=== PATIENT | male | born 1935 | race Caucasian/White ===

== ENCOUNTER → 2017-10-03 13:00 | Outpatient (CLI) | payer MEDICARE, SELFPAY | PROVIDERS: PCP Family Medicine; Visit Provider Family Medicine | DX: I25.10 Atherosclerotic heart disease of native coronary artery without angina pectoris (principal) | CPT/HCPCS: 93005 ==

== ENCOUNTER → 2020-02-15 08:52 | Outpatient (CLI) | payer MEDICARE, SELFPAY ==
--- NOTE | 2020-02-15 08:56 | FL_ITS ---
PROCEDURE: FL BARIUM SWALLOW CLINICAL INDICATION: Dysphagia COMPARISON: No exams were available for comparison TECHNIQUE: In the upright position the patient was observed to swallow barium in both the AP and lateral view. The cervical esophagus was examined under fluoroscopy with images obtained. The patient was then placed prone in the right anterior oblique position and was observed to swallow barium with Valsalva technique . FLUOROSCOPY TIME: 1 minutes and 1 second FINDINGS: There was a small amount silent aspiration. There are diffuse tertiary contractions of the distal esophagus consistent with a corkscrew esophagus. There is a small mid esophageal diverticulum. No hernia and no annular constricting lesions. IMPRESSION: 1. Presbyesophagus. 2. Silent tracheal aspiration. Consider modified barium swallow with speech pathology for further evaluation. 3. Mid esophageal diverticulum Dictated by: Julián Reid MD 02/16/2020 07:52 Julián Reid MD in [place] 02/16/2020 07:52
== END ==
PROVIDERS: PCP Family Medicine; Visit Provider Family Medicine
DX: R13.14 Dysphagia, pharyngoesophageal phase (principal)
CPT/HCPCS: 74220

== ENCOUNTER → 2020-09-08 14:07 | Outpatient (CLI) | payer MEDICARE, SELFPAY ==
--- NOTE | 2020-09-08 14:13 | XR_ITS ---
PROCEDURE: XR KUB CLINICAL INDICATION: WEIGHT LOSS COMPARISON: No exams were available for comparison FINDINGS: Bowel gas pattern is nonspecific. There are nondistended gas-filled loops of small and large bowel. There is suggestion of some bowel loops thickening in the pelvic region. There are osteoarthritic changes of the hips and there is a gamma nail in the right hip. There are small opacities to the right of the L3 transverse process which could represent small renal or gallstones. IMPRESSION: Nondistended gas-filled loops of small and large bowel possibly related to an ileus with some questionable thickened bowel loops in the pelvic region Suspect either cholelithiasis or right nephrolithiasis Dictated by: Julián Reid MD 09/08/2020 15:33 Julián Reid MD in [facility] 09/08/2020 15:33
== END ==
PROVIDERS: PCP Family Medicine; Visit Provider Family Medicine
DX: R63.4 Abnormal weight loss (principal)
CPT/HCPCS: 74018

== ENCOUNTER → 2020-09-13 11:36 | Outpatient (CLI) | payer MEDICARE, SELFPAY | PROVIDERS: PCP Family Medicine; Visit Provider Family Medicine | DX: Z20.822 Contact with and (suspected) exposure to COVID-19 (principal) | CPT/HCPCS: U0003 ==

== ENCOUNTER 2021-02-28 18:17 | Inpatient (IN) | payer MEDICARE, SELFPAY ==
[2021-02-28] VITALS (10 sets, daily range): BP systolic 100–114; BP diastolic 57–62; PULSE 42–61; RESP 12–16; TEMP 36.8; O2SAT 94–97; BMI 16.1
--- NOTE | 2021-02-28 18:41 | ECG_ITS ---
APPROVED REPORT Exam: Resting ECG HR:57 bpm ECG Measurements Heart Rate 57 AXES FL 233 P 42 QRSd 154 QRS -62 QT 465 T 86 QTc 459 Conclusion SINUS BRADYCARDIA WITH FIRST DEGREE AV BLOCK WITH FREQUENT VENTRICULAR PREMATURE COMPLEXES RIGHT BUNDLE BRANCH BLOCK [120+ ms QRS DURATION, UPRIGHT V1, 40+ ms S IN I/aVL/V4/V5/V6] LEFT ANTERIOR FASCICULAR BLOCK [QRS AXIS <= -45, QR IN I, RS IN II] ABNORMAL ECG UNCONFIRMED REPORT Electronically signed by : Booker Santiago MD 03/02/2021 18:35:48
--- NOTE | 2021-02-28 18:52 | CT_ITS ---
PROCEDURE INFORMATION: Exam: CT Head Without Contrast Exam date and time: 02/28/2021 6:52 PM Age: 86 years old Clinical indication: Syncope and collapse TECHNIQUE: Imaging protocol: Computed tomography of the head without contrast. Radiation optimization: All CT scans at this facility use at least one of these dose optimization techniques: automated exposure control; mA and/or kV adjustment per patient size (includes targeted exams where dose is matched to clinical indication); or iterative reconstruction. COMPARISON: RF FL BARIUM SWALLOW 02/15/2020 9:20 AM FINDINGS: Brain: No acute intracranial findings. No intracranial hemorrhage. No edema, swelling or mass-effect. Prominent generalized cerebral cortical atrophy/volume loss. Patchy white matter disease in both cerebral hemispheres, nonspecific but likely chronic microvascular ischemic changes in an 86-year-old, with multiple small white matter infarcts in deep white matter tracts. Benign falcine calcifications. Cerebral ventricles: The ventricles are moderately enlarged, most likely due to central atrophy. Less likely would be NPH. Paranasal sinuses: Mucosal thickening in the left sphenoid sinus with bubbly air-fluid level, suggesting nisvb-ez-kppjkda sinusitis. Mild bilateral ethmoid sinus mucosal thickening. Mastoid air cells: The mastoid processes appear sclerotic and poorly pneumatized on a chronic basis. Orbital cavity: No acute findings in the orbits, as visualized. Vasculature: There are atherosclerotic calcified plaques in the intracranial carotid and vertebral arteries. Bones/joints: No acute skull fracture. No lytic lesions. Left nasal bone fracture deformity series 3, image 27, which may be chronic rather than acute, correlate clinically. Soft tissues: There are no soft tissue masses or fluid collections. IMPRESSION: 1. Lospr-nr-heqgctw left sphenoid sinusitis. 2. No acute intracranial injury or skull fracture. 3. There is no CT evidence of intracranial mass, intracranial hemorrhage, or acute infarct. 4. Mild left nasal bone fracture deformity of indeterminate age, correlate for old versus recent injury. 5. Prominent senescent changes as above, with cerebral atrophy, microvascular ischemic changes, atherosclerotic disease.
--- NOTE | 2021-02-28 18:52 | XR_ITS ---
PROCEDURE INFORMATION: Exam: XR Chest Exam date and time: 02/28/2021 6:52 PM Age: 86 years old Clinical indication: Shortness of breath and other: Syncope; Additional info: Syncope, shortness of breath TECHNIQUE: Imaging protocol: XR of the chest. Views: 1 view. COMPARISON: CR XR KUB 09/08/2020 2:27 PM FINDINGS: Lungs: Pulmonary hyperinflation, emphysematous changes and interstitial scarring in the lungs, correlate for history of COPD. Likely mild granulomatous changes on the left. No focal consolidation. Pleural spaces: Unremarkable. No significant pleural effusion. No pneumothorax. Heart/Mediastinum: Cardiomegaly. Mediastinal surgical changes, correlate for history of CABG. Vasculature: Calcified plaques in the aortic arch. Bones/joints: Sternotomy wires. Osteopenia. Spinal degenerative changes . Other findings: Overlying cardioversion paddles. IMPRESSION: 1. Findings suggest history of COPD, with pulmonary hyperinflation, interstitial scarring, emphysematous changes, and some likely granulomatous changes. 2. No focal consolidation. 3. Cardiomegaly. 4. Additional nonemergency and chronic findings as above.
--- NOTE | 2021-02-28 18:54 | HMH.EDGENADL ---
ED Disposition Clinical Impression: Syncope Disposition: Admitted As Inpatient Condition on Discharge: Fair - Critical Care Critical Care Time: No Attestation: On 02/28/21, the high probability of a clinically significant, sudden or life threatening deterioration of the following system(s) required my full and direct attention, intervention and personal management. The time I documented below is in addition to time spent performing reported procedures but includes the following listed in this critical care notation. Medical Decision Making - [place] Inquiry Pt receiving controlled substance: No Vital Signs: 02/28/21 18:20 02/28/21 19:00 02/28/21 20:30 Temperature 98.3 F Temperature Source Oral Pulse Rate 61 47 L Pulse Rate [Right] 57 L Respiratory Rate 16 14 14 Blood Pressure 101/58 L 100/59 L Blood Pressure [Right Arm] 101/58 L Blood Pressure Mean 70 Blood Pressure Mean [Right Arm] 72 Blood Pressure Source [Right Arm] Automatic Cuff Blood Pressure Position [Right Arm] Sitting 02 Sat by Pulse Oximetry 96 96 97 Oxygen Delivery Method Room Air Room Air Room Air 02/28/21 21:00 Temperature Temperature Source Pulse Rate 52 L Pulse Rate [Right] Respiratory Rate Blood Pressure 114/59 L Blood Pressure [Right Arm] Blood Pressure Mean 73 Blood Pressure Mean [Right Arm] Blood Pressure Source [Right Arm] Blood Pressure Position [Right Arm] 02 Sat by Pulse Oximetry 95 Oxygen Delivery Method Room Air - Lab Data Lab Results 02/28/21 16:48: WBC 9.9, RBC 4.18 L, Hgb 13.0 L, Hct 40.7 L, MCV 97.4 H, MCH 31.2, MCHC 32.0, RDW 14.6, Plt Count 278, MPV 9.2, Neut % (Auto) 83.3 H, Lymph % (Auto) 14.4, [place] % (Auto) 1.6 L, Eos % (Auto) 0.1, Baso % (Auto) 0.6, Neut # (Auto) 8.2 H, Lymph # (Auto) 1.4, [place] # (Auto) 0.2, Eos # (Auto) 0.0, Baso # (Auto) 0.1 02/28/21 16:48: Sodium 137, Potassium 3.7, Chloride 95 L, Carbon Dioxide 36 H, Anion Gap 9.7, BUN 37 H, Creatinine 1.90 H, Estimated GFR 34 L, Est GFR ( Amer) 41 L, Glucose 138 H, Calcium 8.9, Phosphorus 4.1, Magnesium 1.6, Total Bilirubin 0.7, AST 43, ALT 20, Alkaline Phosphatase 114, Troponin I 0.03, Total Protein 6.8, Albumin 2.9 L, Globulin 3.9 H, Albumin/Globulin Ratio 0.7 L, TSH 5.69 H, Thyroxine (T4) 8.4 02/28/21 16:48: NT-Pro-B Natriuret Pep 38871 H 02/28/21 19:00: SARS-CoV-2 (PCR) Not detected, Influenza A Untype (PCR) Not detected, Influenza Type B (PCR) Not detected 02/28/21 21:05: Troponin I 0.02 Result diagrams: 02/28/21 16:48 02/28/21 16:48 Orders (Tests/Meds): ED MEDICATIONS Generic Name Dose Route Start Last Admin Trade Name Freq PRN Reason Stop Dose Admin Acetaminophen 650 mg 02/28/21 21:53 Acetaminophen 325mg Tab PO 03/30/21 21:52 Q4HP PRN Fever or Mild Pain Docusate Sodium 100 mg 03/01/21 09:00 Docusate Sodium 100 Mg Capsule PO 03/31/21 08:59 DAILY [facility] Dextrose/Sodium Chloride 1,000 mls @ 50 mls/hr 02/28/21 22:00 Dextrose 5%-0.45% Nacl Iv Soln IV 03/30/21 21:59 .Q20H [facility] Morphine Sulfate 2 mg 02/28/21 21:53 Morphine 2mg/Ml Syringe IV 03/30/21 21:52 Q2HP PRN Severe Pain Ondansetron HCl 4 mg 02/28/21 21:53 Ondansetron 4mg/2ml Vial IV 03/30/21 21:52 Q8HP PRN Nausea Sodium Chloride 10 ml 02/28/21 21:53 Sodium Chloride 0.9% 10ml Flush Syringe IV 03/30/21 21:52 NEEDED PRN Maintain IV Site ORDERS Category Date Time Status Calcium, Ionized Stat Lab 02/28/21 19:30 Received Troponin I Q3H Lab 02/28/21 23:45 Ordered Troponin I Q3H Lab 03/01/21 01:00 Ordered Troponin I Q3H Lab 01/23/22 02:45 Ordered Medical Decision Narrative: ddx includes but not limited to electrolyte abnormality, dehydration, cardiogenic syncope, neurogenic syncope in setting of brain mass or ich. hds, nad, hr 40-80 bpm, on room air. nonfocal neuro exam. ekg shows sinus rhythm w/ frequent pvc, lafb, rbbb, similar to prior ekg. defib pads place
[2021-02-28 19:09] LABS: Basophils # 0.1 K/mm3 (0-0.2); Basophils % 0.6 % (0.1-2.0); Eosinophils % 0.1 % (0.1-12.0); Hematocrit 40.7 % (42.0-52.0); Lymphocytes # 1.4 K/mm3 (0.7-4.5); Lymphocytes % 14.4 % (10-50); Mean Corpuscular Hemoglobin 31.2 pg (27.0-31.2); Mean Corpuscular Volume 97.4 fl (80-94); Mean Platelet Volume 9.2 fl (7.4-10.4); Monocytes # 0.2 K/mm3 (0.1-1.0); Monocytes % 1.6 % (1.7-9.3); Neutrophils # 8.2 K/mm3 (1.8-7.8); Neutrophils % 83.3 % (37.0-80.0); Platelet Count 278 K/mm3 (142-424); Red Blood Count 4.18 M/mm3 (4.60-6.20); Red Cell Distribution Width 14.6 % (11.5-17.5); White Blood Count 9.9 K/mm3 (4.8-10.8)
[2021-02-28 19:10] LABS: Chloride 95 mmol/L (98-107); Potassium 3.7 mmoL/L (3.5-5.1); Sodium 137 mmol/L (136-145)
--- NOTE | 2021-02-28 19:10 | PC.NURSE ---
PT to rad with YOU Marin
[2021-02-28 19:13] LABS: Alanine Aminotransferase 20 U/L (12-78); Albumin Level 2.9 g/dl (3.5-5.0); Albumin/Globulin Ratio 0.7 (1.1-1.8); Alkaline Phosphatase 114 U/L (38-126); Anion Gap 9.7 mEq/L (5-15); Aspartate Amino Transferase 43 U/L (17-59); Bilirubin,Total 0.7 mg/dl (0.2-1.3); Blood Urea Nitrogen 37 mg/dl (9-20); Carbon Dioxide 36 mmol/L (22.0-30.0); Estimated Glomerular Filt Rate 34 ml/min (>60); GFR (African American) 41 ML/MIN (>60); Globulin 3.9 g/dL (1.3-3.2); Phosphorous 4.1 mg/dl (2.5-4.5); Total Protein,Serum 6.8 g/dl (6.3-8.2)
[2021-02-28 19:14] LABS: Calcium 8.9 mg/dl (8.4-10.2); Glucose 138 mg/dl (74-100); Magnesium 1.6 mg/dl (1.6-2.3)
[2021-02-28 19:23] LABS: NT Pro Brain Natriuretic Pep. 11900 pg/mL (0-450)
[2021-02-28 19:27] LABS: Troponin I 0.03 ng/ml (0.00-0.034)
[2021-02-28 19:31] LABS: T4 (Thyroxine) 8.4 ug/dl (5.53-11.0)
--- NOTE | 2021-02-28 19:35 | PC.NURSE ---
PT came in with and she told the story of the events of that occurred today. Pt rhythm is nickie, EKG obtained immediately, MD notified and came to bedside. Son comes to bedside and reports events also. Zoll monitor pads placed on patient.
[2021-02-28 19:45] LABS: Thyroid Stimulating Hormone 5.69 uIU/mL (0.465-4.68)
[2021-02-28 20:39] LABS: Coronavirus 19, PCR Not Detected (NotDetected); Influenza A, PCR Not Detected (NotDetected); Influenza B, PCR Not Detected (NotDetected)
--- NOTE | 2021-02-28 20:55 | PC.NURSE ---
Dr. Finley s/w to Dr. Santiago for admit. supervisor title notified for bed assignment.
[2021-02-28 21:44] LABS: Troponin I 0.02 ng/ml (0.00-0.034)
[2021-03-01] VITALS (10 sets, daily range): BP systolic 104–116; BP diastolic 51–80; PULSE 50–64; RESP 11–16; TEMP 36.3–36.8; O2SAT 92–97; BMI 15.3
[2021-03-01 00:33] LABS: Troponin I 0.03 ng/ml (0.00-0.034)
--- NOTE | 2021-03-01 13:26 | PC.NURSE ---
PT IS RESTING IN BED. ALERT AND ORIENTED X4. NO COMPLAINTS OF DISCOMFORT. PT HAS VOICED SEVERAL TIMES THAT HE WANTS TO GO HOME. TOLERATING CARDIAC DIET WELL. LUNG SOUNDS CLEAR. ABDOMEN SOFT/NON TENDER WITH ACTIVE BOWEL SOUNDS. WILL CONTINUE TO MONITOR.
--- NOTE | 2021-03-01 14:05 | HMH.ACPN2 ---
Internal Medicine - PN: Subj *Date: 03/01/21 *Time: 14:05 Interval history: From the ER narrative: 86 yo male w/ hx CAD s/p CABG 12 years ago, HTN, HLD, hypothyroidism, GERD, presents for evaluation of syncope. Patient had syncopal episode lasting 20 seconds earlier tonight while sitting at home eating ice cream. family at bedside state patient lost consciousness suddenly for approximately 20 seconds without obvious shaking activity. Patient has not had similar episode before. Patient states he feels fine now but felt short of breath during his spell earlier. Family notes patient has had difficulty eating in last 6 months, with frequent vomiting, choking episodes, intermittent diarrhea. Dr. Sr spoke with family to review the history. Patient has significant hearing deficit. Family was present during this apparent syncopal episode. He rapidly gained consciousness, no loss odf bowel or bladder. Sounds c/w cardiac dysrrhythmia with syncope, and indeed, he monitors frequnt PVC's. The dysphagia has been present for some time and has resulted in weight loss. He has avoided evaluation. Exam Vital signs and Labs for Last 24 Hours: Temp Pulse Resp BP Pulse Ox 97.3 F L 64 16 104/51 L 94 L 03/01/21 07:56 03/01/21 07:56 03/01/21 07:56 03/01/21 07:56 03/01/21 07:56 Laboratory Results - last 24 hr 02/28/21 16:48: WBC 9.9, RBC 4.18 L, Hgb 13.0 L, Hct 40.7 L, MCV 97.4 H, MCH 31.2, MCHC 32.0, RDW 14.6, Plt Count 278, MPV 9.2, Neut % (Auto) 83.3 H, Lymph % (Auto) 14.4, [place] % (Auto) 1.6 L, Eos % (Auto) 0.1, Baso % (Auto) 0.6, Neut # (Auto) 8.2 H, Lymph # (Auto) 1.4, [place] # (Auto) 0.2, Eos # (Auto) 0.0, Baso # (Auto) 0.1 02/28/21 16:48: Sodium 137, Potassium 3.7, Chloride 95 L, Carbon Dioxide 36 H, Anion Gap 9.7, BUN 37 H, Creatinine 1.90 H, Estimated GFR 34 L, Est GFR ( Amer) 41 L, Glucose 138 H, Calcium 8.9, Phosphorus 4.1, Magnesium 1.6, Total Bilirubin 0.7, AST 43, ALT 20, Alkaline Phosphatase 114, Troponin I 0.03, Total Protein 6.8, Albumin 2.9 L, Globulin 3.9 H, Albumin/Globulin Ratio 0.7 L, TSH 5.69 H, Thyroxine (T4) 8.4 02/28/21 16:48: NT-Pro-B Natriuret Pep 42167 H 02/28/21 19:00: SARS-CoV-2 (PCR) Not detected, Influenza A Untype (PCR) Not detected, Influenza Type B (PCR) Not detected 02/28/21 21:05: Troponin I 0.02 02/28/21 23:56: Troponin I 0.03 I & O for Last 24 hours: Intake & Output 02/27/21 02/28/21 03/01/21 03/02/21 11:59 11:59 11:59 11:59 Intake Total 240 / 240 Balance 240 / 240 Weight 95 lb 9.6 oz
--- NOTE | 2021-03-01 14:11 | HMH.HP ---
*Admission Date: 03/01/21 *Chief complaint: Syncope *History of present illness: From the ER narrative: 86 yo male w/ hx CAD s/p CABG 12 years ago, HTN, HLD, hypothyroidism, GERD, presents for evaluation of syncope. Patient had syncopal episode lasting 20 seconds earlier tonight while sitting at home eating ice cream. family at bedside state patient lost consciousness suddenly for approximately 20 seconds without obvious shaking activity. Patient has not had similar episode before. Patient states he feels fine now but felt short of breath during his spell earlier. Family notes patient has had difficulty eating in last 6 months, with frequent vomiting, choking episodes, intermittent diarrhea. Dr. Sr spoke with family to review the history. Patient has significant hearing deficit. Family was present during this apparent syncopal episode. He rapidly gained consciousness, no loss odf bowel or bladder. Sounds c/w cardiac dysrrhythmia with syncope, and indeed, he monitors frequnt PVC's. The dysphagia has been present for some time and has resulted in weight loss. He has avoided evaluation. [facility] History I have reviewed the patient's past medical history: Yes (He is a patient of [employer].) Medical History: Reports:: Arrhythmia, Atherosclerotic Heart Disease, Gastroesophageal Reflux Disease(GERD) Denies:: Congestive Heart Failure, Cerebrovascular Accident, Dementia, Gastrointestinal Bleed, Myocardial Infarction, Peripheral Vascular Disease, Pulmonary Embolism, Transient Ischemic Attacks (TIA) *Have you ever received a pneumonia vaccine?: No *Have you received a flu vaccine this season?: No Other Medical History: Reports: Hypothyroidism. Denies: Hoarseness, Hormone Therapy Other Surgeries: Yes: CABG Amputation: No Fractures: No - *Social History Smoking Status: Unknown if ever smoked Alcohol Intake: never *Occupational Status:: retired *Travel in the last 8 weeks: None Family Hx:: Hypertension Review of Systems - Constitutional Reports anorexia, Reports lack of energy, Reports weight loss, Denies fever(s) - Eyes Denies blind spots, Denies blurry vision - ENT Reports abnormal hearing, Reports difficulty swallowing - *Cardiovascular Reports lightheadedness, Denies chest pain, Denies foot swelling, Denies fast heart rate - *Respiratory Reports shortness of breath, Denies chest congestion - *Gastrointestinal Reports heartburn, Reports difficulty swallowing, Denies abdominal pain, Denies loose stools, Denies black, tarry stools - *Genitourinary Denies difficulty urinating - *Musculoskeletal Reports muscle weakness - Integumentary/Breasts Denies bleeding lesions, Denies lesions - *Neurologic Reports abnormal hearing, Reports dizziness, Reports fainting (In addition to this presentation, describes another brief episode of s), Denies behavioral changes, Denies frequent falls - Psychiatric Denies anxiety, Denies behavioral changes - Endocrine Denies cold intolerance, Denies excessive sweating - Hematologic/Lymphatic Denies easy bleeding - Allergic/Immunologic Reports GI upset with certain foods, Denies wheezing Meds Home Medications Medication Instructions Recorded Confirmed Type Amlodipine Besylate 2.5 mg PO DAILY 02/28/21 02/28/21 History Atorvastatin Calcium [Lipitor 20mg 20 mg PO HS 02/28/21 02/28/21 History Tab] Levothyroxine Sodium 25 mcg PO DAILY 02/28/21 02/28/21 History [Levothyroxine 25mcg (0.025mg) Tab] Metoprolol Succinate [Metoprolol 25 mg PO DAILY 02/28/21 02/28/21 History Succinate 25mg Tablet*] Omeprazole [Omeprazole 20mg Tab] 20 mg PO DAILY 02/28/21 02/28/21 History hydroCHLOROthiazide 12.5 mg PO DAILY 02/28/21 02/28/21 History [Hydrochlorothiazide 12.5mg Tab] Allergies Allergy/AdvReac Type Severity Reaction Status Date / Time Penicillins Allergy Unknown Verified 03/01/21 01:57 Exam Vital signs and Labs for Last 24 Hours: Temp Pulse Resp BP Pulse Ox
--- NOTE | 2021-03-01 14:30 | HMH.PHAVTE ---
[facility] Pharmacy VTE Monitoring - Patient Demographics Admission date: 02/28/21 Report Date: 03/01/21 Time: 14:30 Allergies/Adverse Reactions: Patient Allergies Penicillins Allergy (Unknown, Verified 03/01/21 01:57) Height: 1.68 m Weight: 43.363 kg Patient Problems: Current Active Problems Syncope (Acute) Cardiac dysrhythmia (Acute) Dysphagia (Acute) Weight loss (Acute) Hypothyroidism (Acute) Hypertension (Acute) Hearing deficit (Acute) - VTE Risk Labs: VTE Related Lab Results Hgb 13.0 g/dL (14.1-18.0) L 02/28/21 16:48 Hct 40.7 % (42.0-52.0) L 02/28/21 16:48 Plt Count 278 K/mm3 (142-424) 02/28/21 16:48 BUN 37 mg/dl (9-20) H 02/28/21 16:48 Creatinine 1.90 mg/dl (0.66-1.25) H 02/28/21 16:48 - Prophylaxis VTE Prophylaxis Ordered?: Yes Types of VTE Prophylaxis: TEDS Knee High Location of Applied Device: Bilateral Lower Extremeties
--- NOTE | 2021-03-01 16:49 | HMH.PHAINT ---
MEDICATION RECONCILIATION COMPLETED ON PATIENT USING EXTERNAL FILL HISTORY FROM PHARMACY. -MARYA DONOVAN, KEOD
[2021-03-02] VITALS (20 sets, daily range): BP systolic 83–114; BP diastolic 40–79; PULSE 46–78; RESP 12–19; TEMP 36.1–36.6; O2SAT 94–100; BMI 15.7
--- NOTE | 2021-03-02 | IR_ITS ---
APPROVED REPORT Patient Location: Inpatient PROCEDURES 1. Pocket formation for Permanent Pacemaker Placement. 2. Placement of an atrial sensing and pacing coil into the right atrial appendage. 3. Placement of a ventricular sensing and pacing coil in the right ventricular apex. 4. Permanent Pacemaker Placement. INDICATION Symptomatic Bradycardia Informed consent was obtained prior to the procedure. COMPLICATIONS NONE Estimated Blood Loss: LESS THAN 10 ML TECHNIQUE 1% Lidocaine with epinephrine used to anesthetized the left anterior aspect of the chest. Scalpel was used to make the initial cutaneous incision while electrocautery was used to dissect down tinto the fascia. The fascia was lifted off the pectoralis muscle and digitally manipulated creating a pocket for the pacemaker. The patient was then placed in Trendelenburg position and the subclavian vein was accessed twice via the Selinger technique, there are two wires in the vein. A 6 Vietnamese sheath was placed under fluoroscopic guidance into the subclavian vein over one of the wires while keeping the other wire in place within the subclavian vein. The dilator was removed from the sheath. Using fluoroscopic guidance, the ventricular lead was placed into the right ventricular apex, screwed and secured into place. Electronic interrogation proved acceptable thresholds and voltage within the lead. Using 3-0 silk, the ventricular lead was then secured into place. Lead was secured to the facia using the 3-0 silk. Following this, the sheath was pealed away. An additional 6 Vietnamese fresh sheath and dilator was placed over the existing wire. Using fluoroscopic guidance, the atrial lead was the placed into the right atrial appendage and screwed and secured in place. Electrical interrogation demonstrated acceptable thresholds and voltage number. The atrial lead was then secured into place using 3-0 silk. 1 gram of Ancef was used to flush the pocket. Following the pacemaker generator being secured to the fascia and in place, Monocryl was used to close the subcutaneous layers while spencer were used to close the cutaneous layer. A pressure dressing was placed and the patient was transferred to the postop holding area in stable condition for postoperative care. INTERROGATION Generator Model number: Qwiltde MRI DR IS-1 L311 Generator Serial number: [id number] Atrial lead model number: Ingevity_IS-1 Bi Positive Fix RA/RV 45 cm 7840 Atrial lead serial number: [id number] P-wave: 4.0 mV Impedence: 558 Ohms Threshold: 1.0V @ 0.4ms Current: 1.8 mA Right Ventricular lead model number: Ingevity + IS-1Bi Positive Fix RA/RV 52 cm 7841 Right Ventricular lead serial number: [id number] R-wave: 9.0 mV Impedence: 650 Ohms Threshold: 1.0V @ 0.4ms Current: 1.6 mA Pacing Parameters: Mode: DDDR Base/Max Track: 60 ppm/ 130 ppm No diaphragmatic stimulation at 10 volts. IMPRESSION 1. Successful Pocket formation for Permanent Pacemaker Placement. 2. Successful Placement of an atrial sensing and pacing coil into the right atrial appendage. 3. Successful Placement of a ventricular sensing and pacing coil in the right ventricular apex. 4. Successful Permanent Pacemaker Placement. PLAN 1. Post Op Wound Care. Electronically signed by : Brady Fraser MD 03/05/2021 12:32:18
--- NOTE | 2021-03-02 08:00 | FL_ITS ---
FINAL REPORT CLINICAL HISTORY: . dysphagia, vomiting time-3.43 FINDINGS: UPPER GI SERIES HISTORY: Dysphagia, weight loss, vomiting. PROCEDURE: The patient ingested thin barium contrast. Spot films were performed. A total of 27 images were saved. FINDINGS: Examination was extremely limited due to aspiration of contrast. Only 2-3 swallows of contrast were given due to aspiration. There was a large presumed mid esophageal diverticulum, eccentric to the right. There were filling defects within the diverticulum. This may be related to retained ingested material. However, recommend endoscopy, as neoplasm in the diverticulum cannot be excluded. There was reflux of contrast from the region of the diverticulum back into the pharynx. This also limited ability to complete the study. Fluoroscopy time: 3.43 minutes. IMPRESSION: Extremely limited examination due to the patient aspirating contrast. 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 This may be related to retained ingested material. However, cannot exclude neoplasm in the diverticulum. Recommend upper endoscopy. Note was made of reflux of contrast from the region of the diverticulum into the pharynx. Reviewed, Interpreted and Dictated by Salvador Ferreira MD Transcribed by Meme Portillo PA-C Authenticated by Salvador Ferreira MD on 03/02/2021 12:18:11 PM [facility]
--- NOTE | 2021-03-02 08:11 | HMH.ACPN2 ---
Internal Medicine - PN: Subj *Date: 03/02/21 *Time: 08:11 Interval history: Patient states he is doing fine. Denies chest pain and shortness of breath. He would like to eat breakfast. Nursing notes heart rate has been in the 30s during the night. Sinus rhythm with bundle branch block and first-degree AV block. Exam Vital signs and Labs for Last 24 Hours: Temp Pulse Resp BP Pulse Ox 97.8 F 46 L 18 104/48 L 96 03/02/21 04:00 03/02/21 04:00 03/02/21 04:00 03/02/21 04:00 03/02/21 04:00 I & O for Last 24 hours: Intake & Output 02/27/21 02/28/21 03/01/21 03/02/21 11:59 11:59 11:59 11:59 Intake Total 1382 / 1382 Output Total 200 / 200 Balance 1182 / 1182 Weight 95 lb 9.6 oz - Constitutional no acute distress (Awakened for assessment) - *Routine Respiratory Exam Present: CTA bilaterally (Anteriorly and posteriorly) - *Routine Cardiovascular Exam Present: RRR (At time of exam heart rate is in the 60s and appears sinus rhythm) - *Routine Abdominal Exam Present: soft, normoactive bowel sounds. Absent: tenderness - *Routine Extremities Exam Absent: edema, calf tenderness Assessment and Plan (1) Cardiac dysrhythmia Status: Acute Category: Medical Code(s): I49.9 - Cardiac arrhythmia, unspecified (2) Dysphagia Status: Acute Category: Medical Code(s): R13.10 - Dysphagia, unspecified (3) Weight loss Status: Acute Category: Medical Code(s): R63.4 - Abnormal weight loss (4) Hypothyroidism Status: Acute Category: Medical Code(s): E03.9 - Hypothyroidism, unspecified (5) Hypertension Status: Acute Category: Medical Code(s): I10 - Essential (primary) hypertension (6) Hearing deficit Status: Acute Category: Medical Code(s): H91.90 - Unspecified hearing loss, unspecified ear - Assessment and plan all Dx Assessment and Plan for all problems:: Cardiology to see patient this a.m.
--- NOTE | 2021-03-02 09:14 | CA_ITS ---
APPROVED REPORT EXAM: Comprehensive 2D, Doppler, and color-flow Echocardiogram Big Data Developer: Mellisa Otto RVT Ht: 5 ft 6 in Wt: 95lbs BSA: 1.46 BP: 104/51 mmHg Indications: SYNCOPE,CAD,CABG,RBBB,HTN,EDEMA,ANEMIA HGB-13 HCT-40 2D Dimensions LVOT 2.25 cm (M/F) 1.5-2.5 LA Volume 29.20 mL LA Volume Index 20.13 mL/m2 (M/F) 16-34 M-Mode Dimensions RVDd 3.58 cm (0.9-2.6) LA Diam 3.50 cm (1.9-4.0) LVDd 4.92 cm (3.5-5.7) Ao Diam 3.21 cm (2.0-3.7) LVDs 3.44 cm (3.5-5.7) IVSd 1.12 cm (0.6-1.1) PWd 0.80 cm (0.6-1.1) EF (Teich) 57.20% FS 30.10% EDV (Teich) 113.90 mL TAPSE 1.41 (<1.7) ESV (Teich) 48.80 mL LV Diastology E Decel Time 290.00 (160-240 msec) E/A Ratio 0.8 MED E' 5.30 (< 7 cm/sec) E'/MED E' Ratio 14.34 (>14) LAT E' 9.10 (<10 cm/sec) E/LAT E' Ratio 8.35 (>14) Aortic Valve LVOT Max 102.00 (70-110 cm/s) LVOT VTI 23.25 cm AoV Peak Chevy. 162.00 (50-130 cm/s) AI PHT 591.00 ms AO Peak GR. 10.50 mmHg AO Mean GR. 5.50 (<5 mmHg) AO VTI 33.88 (18-25 cm) CASI (VTI) 2.73 (2.5-4.5 cm2) Mitral Valve MV E Max Chevy. 76.00 (40-130 cm/s) MV A Velocity 93.00 (40-130 cm/s) E/A Ratio 0.82 MV Decel. Time 290.00 (160-240 ms) MV PHT 85.00 ms Pulmonary Valve PV Peak Velocity 59.00 (50-150 cm/s) Tricuspid Valve TR P. Velocity 393.00 cm/s RAP Estimate 10.00 mmHg RVSP 71.80 mmHg Left Ventricle Technically difficult study because of the patient factors and poor acoustic windows. Left atrium is moderately enlarged, left ventricle is normal size, mild concentric left ventricular hypertrophy, visually estimated ejection fraction approximately 45 to 50%, there is moderate inferior basal wall hypokinesis. Endocardial surfaces are poorly visualized. Diastolic parameters are inconclusive in the study. Right Ventricle Right atrium and right ventricle moderately enlarged, contractility of the right ventricle appears to be preserved. Aortic Valve Aortic valve is thickened and calcified, without Doppler evidence of significant aortic stenosis, there is mild aortic insufficiency. Mitral Valve Mitral valve leaflets are minimally thickened, there is mild mitral regurgitation. Tricuspid Valve Tricuspid valve grossly normal, there is moderate tricuspid regurgitation, calculated right ventricular systolic pressure 72 mmHg. Pulmonic Valve Pulmonic valve is minimally thickened and fibrosed. Great Vessels Aortic root is normal size. Inferior vena cava is poorly visualized. Pericardium No significant pericardial effusion noted. Conclusion 1. Biatrial enlargement, normal left ventricular size, mild concentric left ventricular hypertrophy, visually estimated ejection fraction 45 to 50%, with segmental wall motion abnormality described above, study is technically difficult due to patient factors and poor acoustic windows. 2. Thickened and calcified aortic valve without Doppler evidence of aortic stenosis, there is mild aortic insufficiency. 3. Moderately enlarged right ventricle with normal contractility. 4. Mild aortic, mild mitral and moderate tricuspid regurgitation, calculated right ventricular systolic pressure is 72 mmHg. 5. No significant pericardial effusion noted. 6. Inferior vena cava is poorly visualized. Electronically signed by : Sergio Silva MD 03/02/2021 13:02:24
--- NOTE | 2021-03-02 10:14 | HMH.CNCARD ---
History of Present Illness Consult date: 03/02/21 Requesting physician: Jose Sr Chief complaint: syncope History of present illness: This is an 86-year-old white gentleman who presented to the emergency department with complaints of syncope. The patient had a syncopal episode while sitting at home eating ice cream. The patient's family reports that he lost consciousness for approximately 20 seconds. His brother states that he actually passed out twice that day and lost consciousness for approximately 20 seconds each episode. His family reported that he had noticeable shaking activity when he was passed out. He had never had these type of symptoms before. The patient's reported in the emergency department that he did have a little bit of shortness of breath when he woke up from his syncopal spell after eating ice cream but other than that he denies having any shortness of breath. He denies any chest pain or pressure. He denies any edema. He denies any fever, chills, nausea, vomiting, diarrhea, PND or orthopnea. His family does report that he has had difficulty eating for the last 6 months approximately. He does have frequent choking episodes while he is eating and a lot of saliva buildup per his brother. The patient is very hard of hearing. During his syncopal episode he had no loss of bowel or bladder function. The patient does have a history of coronary artery disease status post coronary artery bypass grafting approximately 12 years ago. He does have frequent PVCs on the athletic monitor and his EKG does show first-degree AV block, a right bundle branch block and a 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 [facility] History I have reviewed the patient's past medical history: Yes Medical History: Reports:: Arrhythmia, Atherosclerotic Heart Disease, Coronary Artery Disease, Gastroesophageal Reflux Disease(GERD), Hyperlipidemia, Hypertension Denies:: Congestive Heart Failure, Cerebrovascular Accident, Dementia, Gastrointestinal Bleed, Myocardial Infarction, Peripheral Vascular Disease, Pulmonary Embolism, Transient Ischemic Attacks (TIA) *Have you ever received a pneumonia vaccine?: No *Have you received a flu vaccine this season?: No Other Medical History: Reports: Hypothyroidism. Denies: Hoarseness, Hormone Therapy Other Surgeries: Yes: CABG Amputation: No Fractures: No - *Social History Smoking Status: Unknown if ever smoked Alcohol Intake: never *Occupational Status:: retired *Travel in the last 8 weeks: None Family Hx:: Hypertension Meds Home Medications Medication Instructions Recorded Confirmed Type Amlodipine Besylate 2.5 mg PO DAILY 02/28/21 02/28/21 History Atorvastatin Calcium [Lipitor 20mg 20 mg PO HS 02/28/21 02/28/21 History Tab] Levothyroxine Sodium 25 mcg PO DAILY 02/28/21 02/28/21 History [Levothyroxine 25mcg (0.025mg) Tab] Metoprolol Succinate [Metoprolol 25 mg PO DAILY 02/28/21 02/28/21 History Succinate 25mg Tablet*] Omeprazole [Omeprazole 20mg Tab] 20 mg PO DAILY 02/28/21 02/28/21 History hydroCHLOROthiazide 12.5 mg PO DAILY 02/28/21 02/28/21 History [Hydrochlorothiazide 12.5mg Tab] Allergies Allergy/AdvReac Type Severity Reaction Status Date / Time Penicillins Allergy Unknown Verified 03/01/21 01:57 Exam Vital signs and Labs for Last 24 Hours: Temp Pulse Resp BP Pulse Ox 97.8 F 46 L 18 104/48 L 96 03/02/21 04:00 03/02/21 04:00 03/02/21 04:00 03/02/21 04:00 03/02/21 04:00 I & O for Last 24 hours: Intake & Output 02/27/21 02/28/21 03/01/21 03/02/21 23:59 23:59 23:59 23:59 Intake Total 840 / 840 542 / 542 Output Total 200 / 200 Balance 640 / 640 542 / 542 Weight 100 lb 95 lb 9.6 oz Narrative: EKG is sinus bradycardia with a rate of 57, frequent PVCs, first-degree AV block, right bundle branch block and a 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 He also has a left anterior hemiblock. - Constitutional no acute distress, thin, chronically ill appea
--- NOTE | 2021-03-02 11:53 | ECG_ITS ---
APPROVED REPORT Exam: Resting ECG HR:65 bpm ECG Measurements Heart Rate 65 AXES QRSd 137 QRS -57 QT 461 T 102 QTc 473 Conclusion ATRIAL FIBRILLATION RIGHT BUNDLE BRANCH BLOCK [120+ ms QRS DURATION, UPRIGHT V1, 40+ ms S IN I/aVL/V4/V5/V6] LEFT ANTERIOR FASCICULAR BLOCK Old anteroseptal changes Electronically signed by : Booker Santiago MD 03/02/2021 18:32:47
[2021-03-02 13:18] LABS: Basophils % 0.4 % (0.1-2.0); Eosinophils % 0.6 % (0.1-12.0); Hematocrit 35.4 % (42.0-52.0); Hemoglobin 11.6 g/dL (14.1-18.0); Lymphocytes # 0.8 K/mm3 (0.7-4.5); Lymphocytes % 14.9 % (10-50); Mean Corpuscular HGB Conc 32.6 g/dL (31.8-35.4); Mean Corpuscular Hemoglobin 31.7 pg (27.0-31.2); Mean Corpuscular Volume 97.1 fl (80-94); Mean Platelet Volume 8.8 fl (7.4-10.4); Monocytes # 0.2 K/mm3 (0.1-1.0); Monocytes % 3.3 % (1.7-9.3); Neutrophils # 4.6 K/mm3 (1.8-7.8); Neutrophils % 80.8 % (37.0-80.0); Platelet Count 190 K/mm3 (142-424); Red Blood Count 3.65 M/mm3 (4.60-6.20); Red Cell Distribution Width 14.4 % (11.5-17.5); White Blood Count 5.6 K/mm3 (4.8-10.8)
[2021-03-02 13:19] LABS: Chloride 94 mmol/L (98-107)
[2021-03-02 13:20] LABS: Potassium 3.5 mmoL/L (3.5-5.1); Sodium 129 mmol/L (136-145)
[2021-03-02 13:23] LABS: Anion Gap 5.5 mEq/L (5-15); Blood Urea Nitrogen 29 mg/dl (9-20); Calcium 7.7 mg/dl (8.4-10.2); Carbon Dioxide 33 mmol/L (22.0-30.0); Creatinine Clearance Estimated 26 mL/min (50-200); Estimated Glomerular Filt Rate 52 ml/min (>60); GFR (African American) 63 ML/MIN (>60); Glucose 95 mg/dl (74-100)
--- NOTE | 2021-03-02 13:48 | HMH.ANESCL ---
[facility] Anesthesia Checklist - Patient Identification Patient Identification: Arm Band - Structural Data Admitted From: Inpatient Planned Operative Procedure/s: Pacemaker placement Consent for Planned Operative Procedure(s) Verified: Yes - NPO Status Verified Time NPO: 00:00 - Airway Assessment C-Spine Mobility Assessed: Yes TMJ Mobility Assessed: Yes Dentition: Edentulous - Neurological Assessment Level of Consciousness: Awake Hx Seizures: No Numbness or tingling in extremities: No - Anesthesia Plan Anesthesia Risk discussed: Yes Anesthesia Plan: Verified ASA Class: III Anesthesia Type: MAC [facility] History I have reviewed the patient's past medical history: Yes Medical History: Reports:: Arrhythmia, Atherosclerotic Heart Disease, Coronary Artery Disease, Gastroesophageal Reflux Disease(GERD), Hyperlipidemia, Hypertension Denies:: Congestive Heart Failure, Cerebrovascular Accident, Dementia, Gastrointestinal Bleed, Myocardial Infarction, Peripheral Vascular Disease, Pulmonary Embolism, Transient Ischemic Attacks (TIA) *Have you ever received a pneumonia vaccine?: No *Have you received a flu vaccine this season?: No Other Medical History: Reports: Hypothyroidism. Denies: Hoarseness, Hormone Therapy Anesthesia experience/problems:: None Other Surgeries: Yes: CABG Amputation: No Fractures: No - *Social History Smoking Status: Unknown if ever smoked Alcohol Intake: never Substance Use Type: denies use *Occupational Status:: retired *Travel in the last 8 weeks: None Family Hx:: Hypertension
--- NOTE | 2021-03-02 15:18 | DIET.NUTRFU ---
RD saw patient today, was NPO for pacemaker. Reviewed dietary hx at home, has lost weight. Having swallowing issues, throwing food and additional saliva up. Spoke to , he was able to tolerate enure vanilla, will start on trays when diet advanced. He appears malnourished and very dry, lips cracked. Sodium level depleted at 129, dextrose IV provided. Had a upper GI series completed and they recommended an endoscopy, as neoplasm in the diverticulum cannot be excluded. May also need to see speech prior to advancing oral diet for safety.
--- NOTE | 2021-03-02 15:35 | XR_ITS ---
FINAL REPORT CLINICAL HISTORY: pacer post op FINDINGS: Cardiac silhouette is mildly enlarged. Multiple median sternotomy wires are present. Left subclavian pacemaker is present. Skin spencer are seen superior to the pacer. There is no evidence of pneumothorax. Coarse interstitial opacity of both lungs is likely chronic. IMPRESSION: 1. No evidence of pneumothorax, post pacemaker placement. Authenticated by Salvador Ferreira MD on 03/02/2021 04:17:33 PM [facility]
--- NOTE | 2021-03-02 17:17 | HMH.ACPN2 ---
Internal Medicine - PN: Subj *Date: 03/02/21 *Time: 17:17 Interval history: Upper GI report... IMPRESSION: Extremely limited examination due to the patient aspirating contrast. 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 This may be related to retained ingested material. However, cannot exclude neoplasm in the diverticulum. Recommend upper endoscopy. Note was made of reflux of contrast from the region of the diverticulum into the pharynx. Exam Vital signs and Labs for Last 24 Hours: Temp Pulse Resp BP Pulse Ox 97.4 F L 73 18 99/69 L 100 03/02/21 08:00 03/02/21 16:07 03/02/21 16:07 03/02/21 16:07 03/02/21 16:07 Laboratory Results - last 24 hr 02/28/21 19:30: Ionized Calcium 5.0 03/02/21 12:50: WBC 5.6 D, RBC 3.65 L, Hgb 11.6 L, Hct 35.4 L, MCV 97.1 H, MCH 31.7 H, MCHC 32.6, RDW 14.4, Plt Count 190 D, MPV 8.8, Neut % (Auto) 80.8 H, Lymph % (Auto) 14.9, [place] % (Auto) 3.3, Eos % (Auto) 0.6, Baso % (Auto) 0.4, Neut # (Auto) 4.6, Lymph # (Auto) 0.8, [place] # (Auto) 0.2, Eos # (Auto) 0.0, Baso # (Auto) 0.0 03/02/21 12:50: Sodium 129 L, Potassium 3.5, Chloride 94 L, Carbon Dioxide 33 H, Anion Gap 5.5, BUN 29 H, Creatinine 1.30 H D, Estimated Creat Clear 26, Estimated GFR 52 L, Est GFR ( Amer) 63 D, Glucose 95, Calcium 7.7 L I & O for Last 24 hours: Intake & Output 02/28/21 03/01/21 03/02/21 03/03/21 11:59 11:59 11:59 11:59 Intake Total 1382 / 1382 Output Total 200 / 200 Balance 1182 / 1182 Weight 95 lb 9.6 oz 98 lb 6.4 oz 98 lb 6.277 oz Assessment and Plan (1) Syncope Status: Acute Category: Medical Code(s): R55 - Syncope and collapse (2) Sick sinus syndrome Status: Acute Category: Medical Code(s): I49.5 - Sick sinus syndrome (3) Coronary artery disease Status: Acute Qualifiers: Coronary Disease-Associated Artery/Lesion type: bypass graft [place] vs. transplanted heart: [place] heart Associated angina: without angina Qualified Code(s): I25.810 - Atherosclerosis of coronary artery bypass graft(s) without angina pectoris Category: Medical Code(s): I25.10 - Atherosclerotic heart disease of [place] coronary artery without angina pectoris (4) Hypertension Status: Acute Category: Medical Code(s): I10 - Essential (primary) hypertension (5) History of coronary artery bypass graft Status: Acute Category: Surgical Code(s): Z95.1 - Presence of aortocoronary bypass graft (6) Hyperlipidemia Status: Acute Category: Medical Code(s): E78.5 - Hyperlipidemia, unspecified (7) Frequent PVCs Status: Acute Category: Medical Code(s): I49.3 - Ventricular premature depolarization (8) Right bundle branch block Status: Acute Category: Medical Code(s): I45.10 - Unspecified right bundle-branch block (9) First degree AV block Status: Acute Category: Medical Code(s): I44.0 - Atrioventricular block, first degree (10) Dysphagia Status: Acute Category: Medical Code(s): R13.10 - Dysphagia, unspecified (11) Weight loss Status: Acute Category: Medical Code(s): R63.4 - Abnormal weight loss (12) Hypothyroidism Status: Acute Category: Medical Code(s): E03.9 - Hypothyroidism, unspecified (13) Hearing deficit Status: Acute Category: Medical Code(s): H91.90 - Unspecified hearing loss, unspecified ear (14) Esophageal abnormality Status: Acute Category: Medical Code(s): K22.9 - Disease of esophagus, unspecified - Assessment and plan all Dx Assessment and Plan for all problems:: Surgical consult for EGD
--- NOTE | 2021-03-02 18:34 | PC.NURSE ---
Pt is alert and oriented x4. Lungs are clear, bowel sounds active x4. He remains on RA w/O2 sats >94%. He is s/p pacemaker placement. Dressing is clean, dry and intact. He's been paced on telemetry. He denies any complaints at this time. He is currently sitting up in bed eating supper.
--- NOTE | 2021-03-02 19:11 | PC.NURSE ---
Notified Dr fernandes of consult
[2021-03-03] VITALS (10 sets, daily range): BP systolic 90–139; BP diastolic 44–95; PULSE 70–97; RESP 16–20; TEMP 36.2–36.8; O2SAT 93–99; BMI 16.7
--- NOTE | 2021-03-03 03:14 | PC.NURSE ---
Patient has rested well thus far in this RN's shift. Patient has voiced no complaints.
[2021-03-03 07:00] LABS: Basophils % 0.2 % (0.1-2.0); Eosinophils % 0.4 % (0.1-12.0); Hematocrit 34.6 % (42.0-52.0); Lymphocytes # 0.5 K/mm3 (0.7-4.5); Lymphocytes % 7.4 % (10-50); Mean Corpuscular HGB Conc 31.9 g/dL (31.8-35.4); Mean Corpuscular Hemoglobin 31.3 pg (27.0-31.2); Mean Platelet Volume 9.2 fl (7.4-10.4); Monocytes # 0.3 K/mm3 (0.1-1.0); Monocytes % 4.3 % (1.7-9.3); Neutrophils # 6.6 K/mm3 (1.8-7.8); Neutrophils % 87.7 % (37.0-80.0); Platelet Count 188 K/mm3 (142-424); Red Blood Count 3.53 M/mm3 (4.60-6.20); Red Cell Distribution Width 14.6 % (11.5-17.5); White Blood Count 7.5 K/mm3 (4.8-10.8)
[2021-03-03 07:23] LABS: Alanine Aminotransferase 15 U/L (12-78); Albumin Level 2.2 g/dl (3.5-5.0); Alkaline Phosphatase 95 U/L (38-126); Aspartate Amino Transferase 38 U/L (17-59); Bilirubin,Direct 0.1 mg/dl (0.0-0.4); Bilirubin,Indirect 0.4 mg/dL (0.0-0.9); Bilirubin,Total 0.5 mg/dl (0.2-1.3); Bilirubin,Unconjugated 0.5 mg/dL (0.0-1.1); Blood Urea Nitrogen 29 mg/dl (9-20); Calcium 7.7 mg/dl (8.4-10.2); Carbon Dioxide 29 mmol/L (22.0-30.0); Chloride 98 mmol/L (98-107); Chol/HDL Ratio 4.3 (1-3.5); Cholesterol 68 mg/dl (140-200); Creatinine Clearance Estimated 28 mL/min (50-200); Estimated Glomerular Filt Rate 52 ml/min (>60); GFR (African American) 63 ML/MIN (>60); Glucose 95 mg/dl (74-100); HDL Cholesterol 16 mg/dl (40-60); Sodium 129 mmol/L (136-145); Total Protein,Serum 5.3 g/dl (6.3-8.2); Triglycerides 58 mg/dl (30-150); VLDL Cholesterol 12 mg/dL (0-40)
[2021-03-03 07:26] LABS: MANUAL DIFFERENTIAL MANUAL DIFFERENTIAL (MANUAL DIFF)
[2021-03-03 07:34] LABS: Direct LDL Cholesterol 41.12 mg/dL (100-129)
--- NOTE | 2021-03-03 08:14 | HMH.ACPN2 ---
Internal Medicine - PN: Subj *Date: 03/03/21 *Time: 08:14 Interval history: Patient had a pacer placed yesterday. He is n.p.o. this morning for possible EGD. Surgery has been consulted. CBC shows a hemoglobin of 11 hematocrit 34.6. Sodium remains low at 129; potassium is 4. Renal function with a BUN of 29 and creatinine 1.3. Echocardiogram completed 03/02/2021 with the following results: Conclusion 1. Biatrial enlargement, normal left ventricular size, mild concentric left ventricular hypertrophy, visually estimated ejection fraction 45 to 50%, with segmental wall motion abnormality described above, study is technically difficult due to patient factors and poor acoustic windows. 2. Thickened and calcified aortic valve without Doppler evidence of aortic stenosis, there is mild aortic insufficiency. 3. Moderately enlarged right ventricle with normal contractility. 4. Mild aortic, mild mitral and moderate tricuspid regurgitation, calculated right ventricular systolic pressure is 72 mmHg. 5. No significant pericardial effusion noted. 6. Inferior vena cava is poorly visualized. 03/02/2021 upper GI and esophagus study: IMPRESSION: Extremely limited examination due to the patient aspirating contrast. 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 This may be related to retained ingested material. However, cannot exclude neoplasm in the diverticulum. Recommend upper endoscopy. Note was made of reflux of contrast from the region of the diverticulum into the pharynx. Patient denies chest pain and shortness of breath. States he does get up to the bedside commode. Exam Vital signs and Labs for Last 24 Hours: Temp Pulse Resp BP Pulse Ox 97.8 F 79 16 115/70 96 03/03/21 04:00 03/03/21 04:00 03/03/21 04:00 03/03/21 04:00 03/03/21 04:00 Laboratory Results - last 24 hr 02/28/21 19:30: Ionized Calcium 5.0 03/02/21 12:50: WBC 5.6 D, RBC 3.65 L, Hgb 11.6 L, Hct 35.4 L, MCV 97.1 H, MCH 31.7 H, MCHC 32.6, RDW 14.4, Plt Count 190 D, MPV 8.8, Neut % (Auto) 80.8 H, Lymph % (Auto) 14.9, [place] % (Auto) 3.3, Eos % (Auto) 0.6, Baso % (Auto) 0.4, Neut # (Auto) 4.6, Lymph # (Auto) 0.8, [place] # (Auto) 0.2, Eos # (Auto) 0.0, Baso # (Auto) 0.0 03/02/21 12:50: Sodium 129 L, Potassium 3.5, Chloride 94 L, Carbon Dioxide 33 H, Anion Gap 5.5, BUN 29 H, Creatinine 1.30 H D, Estimated Creat Clear 26, Estimated GFR 52 L, Est GFR ( Amer) 63 D, Glucose 95, Calcium 7.7 L 03/03/21 05:40: WBC 7.5 D, RBC 3.53 L, Hgb 11.0 L, Hct 34.6 L, MCV 98.0 H, MCH 31.3 H, MCHC 31.9, RDW 14.6, Plt Count 188, MPV 9.2, Neut % (Auto) 87.7 H, Lymph % (Auto) 7.4 L, [place] % (Auto) 4.3, Eos % (Auto) 0.4, Baso % (Auto) 0.2, Neut # (Auto) 6.6, Lymph # (Auto) 0.5 L, [place] # (Auto) 0.3, Eos # (Auto) 0.0, Baso # (Auto) 0.0 03/03/21 05:40: Sodium 129 L, Potassium 4.0, Chloride 98, Carbon Dioxide 29, Anion Gap 6.0, BUN 29 H, Creatinine 1.30 H, Estimated Creat Clear 28, Estimated GFR 52 L, Est GFR ( Amer) 63, Glucose 95, Calcium 7.7 L, Total Bilirubin 0.5, Direct Bilirubin 0.1, Conjugated Bilirubin 0.0, Indirect Bilirubin 0.4, Unconjugated Bilirubin 0.5, AST 38, ALT 15, Alkaline Phosphatase 95, Total Protein 5.3 L, Albumin 2.2 L, Triglycerides 58, Cholesterol 68 L, LDL Cholesterol Direct 41.12 L, VLDL Cholesterol 12, HDL Cholesterol 16 L, Cholesterol/HDL Ratio 4.3 H I & O for Last 24 hours: Intake & Output 02/28/21 03/01/21 03/02/21 03/03/21 11:59 11:59 11:59 11:59 Intake Total 1382 / 1382 1360 / 1360 Output Total 200 / 200 250 / 250 Balance 1182 / 1182 1110 / 1110 Weight 95 lb 9.6 oz 98 lb 6.4 oz 104 lb - Constitutional no acute distress (Awakened for exam.), thin (And frail) - *Routine Respiratory Exam Present: CTA bilaterally (Anteriorly and posteriorly) - *Routine Cardiovascular Exam Present: RRR (Monitor showing paced rhythm in the 70s) - *Routine Abdominal Exam Present: soft, normoacti
[2021-03-03 08:38] LABS: Eosinophils % 1 % (0-3); Lymphocytes % 8 % (10-50); Monocytes % 1 % (2-9); Neutrophils % 89 % (42-76); Total Cells Counted 100
[2021-03-03 08:39] LABS: Hypochromasia 1+; Macrocytosis 1+; Platelet Estimate Normal
--- NOTE | 2021-03-03 09:18 | HMH.PNCARD ---
Subjective Date: 03/03/21 Time: 09:00 Principal diagnosis: symptomatic bradycardia, sss Interval history: This is a 89-year-old white gentleman who presented to the emergency department with complaints of syncope. The patient was found to have sick sinus syndrome, symptomatic bradycardia and syncope. He underwent permanent pacemaker placement yesterday and tolerated the procedure well. The patient only ended up getting a dual chamber permanent pacemaker and not the biventricular pacemaker. He is a very thin and frail man so Dr. Fraser decided against putting in a biventricular pacemaker. This morning he states he has some soreness at the pacemaker site but no pain. He states it is only sore when it is touched. His dressing was removed and his site is healing well. No signs of infection noted. He denies any chest pain or pressure. He denies any shortness of breath or edema. He denies any fever, chills, nausea, vomiting, diarrhea, PND or orthopnea. He does have some difficulty swallowing and did have an abnormal upper GI series and has a surgery consult for today. Exam Vital signs and Labs for Last 24 Hours: Temp Pulse Resp BP Pulse Ox 97.8 F 79 16 115/70 96 03/03/21 04:00 03/03/21 04:00 03/03/21 04:00 03/03/21 04:00 03/03/21 04:00 Laboratory Results - last 24 hr 02/28/21 19:30: Ionized Calcium 5.0 03/02/21 12:50: WBC 5.6 D, RBC 3.65 L, Hgb 11.6 L, Hct 35.4 L, MCV 97.1 H, MCH 31.7 H, MCHC 32.6, RDW 14.4, Plt Count 190 D, MPV 8.8, Neut % (Auto) 80.8 H, Lymph % (Auto) 14.9, [place] % (Auto) 3.3, Eos % (Auto) 0.6, Baso % (Auto) 0.4, Neut # (Auto) 4.6, Lymph # (Auto) 0.8, [place] # (Auto) 0.2, Eos # (Auto) 0.0, Baso # (Auto) 0.0 03/02/21 12:50: Sodium 129 L, Potassium 3.5, Chloride 94 L, Carbon Dioxide 33 H, Anion Gap 5.5, BUN 29 H, Creatinine 1.30 H D, Estimated Creat Clear 26, Estimated GFR 52 L, Est GFR ( Amer) 63 D, Glucose 95, Calcium 7.7 L 03/03/21 05:40: WBC 7.5 D, RBC 3.53 L, Hgb 11.0 L, Hct 34.6 L, MCV 98.0 H, MCH 31.3 H, MCHC 31.9, RDW 14.6, Plt Count 188, MPV 9.2, Neut % (Auto) 87.7 H, Lymph % (Auto) 7.4 L, [place] % (Auto) 4.3, Eos % (Auto) 0.4, Baso % (Auto) 0.2, Neut # (Auto) 6.6, Lymph # (Auto) 0.5 L, [place] # (Auto) 0.3, Eos # (Auto) 0.0, Baso # (Auto) 0.0, Total Counted 100, Neutrophils % (Manual) 89 H, Lymphocytes % (Manual) 8 L, Monocytes % (Manual) 1 L, Eosinophils % (Manual) 1, Blast Cells % 1.0, Platelet Estimate Normal, Hypochromasia 1+, Macrocytosis 1+ 03/03/21 05:40: Sodium 129 L, Potassium 4.0, Chloride 98, Carbon Dioxide 29, Anion Gap 6.0, BUN 29 H, Creatinine 1.30 H, Estimated Creat Clear 28, Estimated GFR 52 L, Est GFR ( Amer) 63, Glucose 95, Calcium 7.7 L, Total Bilirubin 0.5, Direct Bilirubin 0.1, Conjugated Bilirubin 0.0, Indirect Bilirubin 0.4, Unconjugated Bilirubin 0.5, AST 38, ALT 15, Alkaline Phosphatase 95, Total Protein 5.3 L, Albumin 2.2 L, Triglycerides 58, Cholesterol 68 L, LDL Cholesterol Direct 41.12 L, VLDL Cholesterol 12, HDL Cholesterol 16 L, Cholesterol/HDL Ratio 4.3 H I & O for Last 24 hours: Intake & Output 02/28/21 03/01/21 03/02/21 03/03/21 23:59 23:59 23:59 23:59 Intake Total 840 / 840 1315 / 1315 587 / 587 Output Total 200 / 200 250 / 250 Balance 640 / 640 1315 / 1315 337 / 337 Weight 100 lb 95 lb 9.6 oz 98 lb 6.277 oz 104 lb Narrative: Echo shows: 1. Biatrial enlargement, normal left ventricular size, mild concentric left ventricular hypertrophy, visually estimated ejection fraction 45 to 50%, with segmental wall motion abnormality described above, study is technically difficult due to patient factors and poor acoustic windows. 2. Thickened and calcified aortic valve without Doppler evidence of aortic stenosis, there is mild aortic insufficiency. 3. Moderately enlarged right ventricle with normal contractility. 4. Mild aortic, mild mitral and moderate tricuspid regurgitation, calculated right ventricular systolic pressure is 72 mmHg. 5. No sign
--- NOTE | 2021-03-03 09:33 | PC.NURSE ---
Notified general surgery of consult, MD Langston already aware
--- NOTE | 2021-03-03 13:35 | HMH.PTEV ---
Physical Therapy Evaluation Rehab PT IP Evaluation Start: 03/03/21 11:26 Freq: .once Status: Active Protocol: Document 03/03/21 13:30 SAVANNAH (Rec: 03/03/21 13:35 SAVANNAH [id number]) Subjective/History History History 86 yo male w/ hx CAD s/p CABG 12 years ago, HTN, HLD, hypothyroidism, GERD, presents for evaluation of syncope. Patient had syncopal episode lasting 20 seconds. Patient has not had similar episode before. Patient states he feels fine now but felt short of breath during his spell earlier. Family notes patient has had difficulty eating in last 6 months, with frequent vomiting, choking episodes, intermittent diarrhea. Subjective Subjective Pt very EYAK but is willing to participate in therapy - ot staes he has laid to long and my hips are stiff - Pt reports he had fx'd hip ~5 yrs ago and walks w/ a limp Rehab PT IP Eval Objective Appearance Patient Behavior Appropriate,Cooperative Patient Orientation Place,Name,Birthday Difficulty following instructions none Speech Pattern Appropriate Ambulation Patient Able to Ambulate Yes Ambulation Observation IP General Gait Pattern Observation Antalgic Gait,Shuffling Step Ambulation Distance (feet) 10 Ambulation Assistive Device Small Base Quad Cane Ambulation Ability Contact Guard/Hand Hold Balance Ability to Arise Able, uses arms to help Sitting Balance Steady, safe Standing Balance Steady, wide stance Dynamic Sitting Balance Ability Good Dynamic Standing Balance Ability Fair Transfers Bed Transfer Ability Contact Guard/Hand Hold Chair Transfer Ability Contact Guard/Hand Hold Sit to Stand Bed Transfer Ability Contact Guard/Hand Hold, Minimal x 1 (25% assist) Sit to Stand Chair Transfer Ability Contact Guard/Hand Hold, Minimal x 1 (25% assist) Rehab PT IP prob,goals,plan Problems Date of Evaluation: 03/03/21 PT IP Problems Bed Mobility,Transfers,Gait, Balance,Self care,Safety Rehab Potential Rehab Potential Fair Equipment Needs Assistive Devices Straight Cane Plan PT Intervention Plan
--- NOTE | 2021-03-03 14:07 | HMH.GSCON ---
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 Sr for EGD. Recent dysphagia/aspiration noted; however, per the patient, the patient's family, and nursing he has been able to tolerate food intake over the past day or so . Recent esophagram revealed a diverticulum with food particles versus questionable neoplasm . Review of Systems - ENT Reports difficulty swallowing (Resolved per patient) - *Neurologic Reports abnormal hearing, Reports dizziness, Reports fainting (In addition to this presentation, describes another brief episode of s), Reports weakness, Denies behavioral changes, Denies frequent falls [facility] History Medical History: Reports:: Arrhythmia, Atherosclerotic Heart Disease, Coronary Artery Disease, Gastroesophageal Reflux Disease(GERD), Hyperlipidemia, Hypertension Denies:: Congestive Heart Failure, Cerebrovascular Accident, Dementia, Gastrointestinal Bleed, Myocardial Infarction, Peripheral Vascular Disease, Pulmonary Embolism, Seizures, Transient Ischemic Attacks (TIA) *Have you ever received a pneumonia vaccine?: No *Have you received a flu vaccine this season?: No Other Medical History: Reports: Hypothyroidism. Denies: Hoarseness, Hormone Therapy Anesthesia experience/problems:: None Other Surgeries: Yes: CABG Amputation: No Fractures: No - *Social History Smoking Status: Unknown if ever smoked Alcohol Intake: never Substance Use Type: denies use *Occupational Status:: retired *Travel in the last 8 weeks: None Family Hx:: Hypertension Meds Home Medications Medication Instructions Recorded Confirmed Type Amlodipine Besylate 2.5 mg PO DAILY 02/28/21 02/28/21 History Atorvastatin Calcium [Lipitor 20mg 20 mg PO HS 02/28/21 02/28/21 History Tab] Levothyroxine Sodium 25 mcg PO DAILY 02/28/21 02/28/21 History [Levothyroxine 25mcg (0.025mg) Tab] Metoprolol Succinate [Metoprolol 25 mg PO DAILY 02/28/21 02/28/21 History Succinate 25mg Tablet*] Omeprazole [Omeprazole 20mg Tab] 20 mg PO DAILY 02/28/21 02/28/21 History hydroCHLOROthiazide 12.5 mg PO DAILY 02/28/21 02/28/21 History [Hydrochlorothiazide 12.5mg Tab] Allergies Allergy/AdvReac Type Severity Reaction Status Date / Time Penicillins Allergy Unknown Verified 03/01/21 01:57 Exam Vital signs and Labs for Last 24 Hours: Temp Pulse Resp BP Pulse Ox 98.1 F 71 16 111/64 96 03/03/21 08:00 03/03/21 12:00 03/03/21 12:00 03/03/21 12:00 03/03/21 12:00 Laboratory Results - last 24 hr 02/28/21 19:30: Ionized Calcium 5.0 03/03/21 05:40: WBC 7.5 D, RBC 3.53 L, Hgb 11.0 L, Hct 34.6 L, MCV 98.0 H, MCH 31.3 H, MCHC 31.9, RDW 14.6, Plt Count 188, MPV 9.2, Neut % (Auto) 87.7 H, Lymph % (Auto) 7.4 L, [place] % (Auto) 4.3, Eos % (Auto) 0.4, Baso % (Auto) 0.2, Neut # (Auto) 6.6, Lymph # (Auto) 0.5 L, [place] # (Auto) 0.3, Eos # (Auto) 0.0, Baso # (Auto) 0.0, Total Counted 100, Neutrophils % (Manual) 89 H, Lymphocytes % (Manual) 8 L, Monocytes % (Manual) 1 L, Eosinophils % (Manual) 1, Blast Cells % 1.0, Platelet Estimate Normal, Hypochromasia 1+, Macrocytosis 1+ 03/03/21 05:40: Sodium 129 L, Potassium 4.0, Chloride 98, Carbon Dioxide 29, Anion Gap 6.0, BUN 29 H, Creatinine 1.30 H, Estimated Creat Clear 28, Estimated GFR 52 L, Est GFR ( Amer) 63, Glucose 95, Calcium 7.7 L, Total Bilirubin 0.5, Direct Bilirubin 0.1, Conjugated Bilirubin 0.0, Indirect Bilirubin 0.4, Unconjugated Bilirubin 0.5, AST 38, ALT 15, Alkaline Phosphatase 95, Total Protein 5.3 L, Albumin 2.2 L, Triglycerides 58, Cholesterol 68 L, LDL Cholesterol Direct 41.12 L, VLDL Cholesterol 12, HDL Cholesterol 16 L, Cholesterol/HDL Ratio 4.3 H I & O for Last 24 hours: Intake & Output 01/23/03/02/21 03/03/21 03/04/21 11:59 11:59 11:59 11:59 Intake Total 1382 / 1382 1360 / 1360 Output Total 200 / 200 250 / 250 Balance
--- NOTE | 2021-03-03 14:26 | PC.NURSE ---
Pt to pre op at this time
--- NOTE | 2021-03-03 15:10 | HMH.SCOPE ---
- Procedure: Date: 03/03/21 Patient Date of :: 1935 Procedure Performed:: Esophagogastroduodenoscopy Indications:: Esophageal diverticulum with associated foreign body/food particles versus neoplasm Performing Provider:: Devon Hayes MD Referring Provider:: Dr. rS Sedation:: Monitored anesthesia care Procedure:: After informed consent was obtained the patient was taken to the endoscopy suite. Sedation ensued after the patient was transferred to the left lateral decubitus position. Pulse, blood pressure, and oxygen saturation were monitored throughout the procedure. The endoscope was advanced beyond the duodenal bulb. The gastroscope was carefully removed and the patient was transferred to recovery in stable condition. Please see findings and specimens below for detail. Findings:: Very large diverticulum at 30 cm Large volume of ingested food particles throughout diverticulum Severe inflammation throughout the entire diverticular region No definitive mass; however, visualization limited secondary to severe inflammation and angulation Very tortuous esophagus distal to the diverticulum Specimens:: none Recommendations:: Clear liquid diet ordered Gastrografin esophagram ordered to evaluate for possible leak status post foreign body removal Complications:: No immediate Estimated blood obtained (mL): 0
--- NOTE | 2021-03-03 17:03 | HMH.ACPN2 ---
Internal Medicine - PN: Subj *Date: 03/03/21 *Time: 17:03 Interval history: See surgical report on EGD:Very large diverticulum at 30 cm Large volume of ingested food particles throughout diverticulum Severe inflammation throughout the entire diverticular region No definitive mass; however, visualization limited secondary to severe inflammation and angulation Very tortuous esophagus distal to the diverticulum Exam Vital signs and Labs for Last 24 Hours: Temp Pulse Resp BP Pulse Ox 98.2 F 97 H 20 139/95 H 94 L 03/03/21 16:00 03/03/21 16:00 03/03/21 16:00 03/03/21 16:00 03/03/21 16:00 Laboratory Results - last 24 hr 03/03/21 05:40: WBC 7.5 D, RBC 3.53 L, Hgb 11.0 L, Hct 34.6 L, MCV 98.0 H, MCH 31.3 H, MCHC 31.9, RDW 14.6, Plt Count 188, MPV 9.2, Neut % (Auto) 87.7 H, Lymph % (Auto) 7.4 L, [place] % (Auto) 4.3, Eos % (Auto) 0.4, Baso % (Auto) 0.2, Neut # (Auto) 6.6, Lymph # (Auto) 0.5 L, [place] # (Auto) 0.3, Eos # (Auto) 0.0, Baso # (Auto) 0.0, Total Counted 100, Neutrophils % (Manual) 89 H, Lymphocytes % (Manual) 8 L, Monocytes % (Manual) 1 L, Eosinophils % (Manual) 1, Blast Cells % 1.0, Platelet Estimate Normal, Hypochromasia 1+, Macrocytosis 1+ 03/03/21 05:40: Sodium 129 L, Potassium 4.0, Chloride 98, Carbon Dioxide 29, Anion Gap 6.0, BUN 29 H, Creatinine 1.30 H, Estimated Creat Clear 28, Estimated GFR 52 L, Est GFR ( Amer) 63, Glucose 95, Calcium 7.7 L, Total Bilirubin 0.5, Direct Bilirubin 0.1, Conjugated Bilirubin 0.0, Indirect Bilirubin 0.4, Unconjugated Bilirubin 0.5, AST 38, ALT 15, Alkaline Phosphatase 95, Total Protein 5.3 L, Albumin 2.2 L, Triglycerides 58, Cholesterol 68 L, LDL Cholesterol Direct 41.12 L, VLDL Cholesterol 12, HDL Cholesterol 16 L, Cholesterol/HDL Ratio 4.3 H I & O for Last 24 hours: Intake & Output 03/01/21 03/02/21 03/03/21 03/04/21 11:59 11:59 11:59 11:59 Intake Total 1382 / 1382 1360 / 1360 Output Total 200 / 200 250 / 250 Balance 1182 / 1182 1110 / 1110 Weight 95 lb 9.6 oz 98 lb 6.4 oz 104 lb Assessment and Plan (1) Syncope Status: Acute Category: Medical Code(s): R55 - Syncope and collapse (2) Sick sinus syndrome Status: Acute Category: Medical Code(s): I49.5 - Sick sinus syndrome (3) Coronary artery disease Status: Acute Qualifiers: Coronary Disease-Associated Artery/Lesion type: bypass graft [place] vs. transplanted heart: [place] heart Associated angina: without angina Qualified Code(s): I25.810 - Atherosclerosis of coronary artery bypass graft(s) without angina pectoris Category: Medical Code(s): I25.10 - Atherosclerotic heart disease of [place] coronary artery without angina pectoris (4) Hypertension Status: Acute Category: Medical Code(s): I10 - Essential (primary) hypertension (5) History of coronary artery bypass graft Status: Acute Category: Surgical Code(s): Z95.1 - Presence of aortocoronary bypass graft (6) Hyperlipidemia Status: Acute Category: Medical Code(s): E78.5 - Hyperlipidemia, unspecified (7) Frequent PVCs Status: Acute Category: Medical Code(s): I49.3 - Ventricular premature depolarization (8) Right bundle branch block Status: Acute Category: Medical Code(s): I45.10 - Unspecified right bundle-branch block (9) First degree AV block Status: Acute Category: Medical Code(s): I44.0 - Atrioventricular block, first degree (10) Dysphagia Status: Acute Category: Medical Code(s): R13.10 - Dysphagia, unspecified (11) Weight loss Status: Acute Category: Medical Code(s): R63.4 - Abnormal weight loss (12) Hypothyroidism Status: Acute Category: Medical Code(s): E03.9 - Hypothyroidism, unspecified (13) Hearing deficit Status: Acute Category: Medical Code(s): H91.90 - Unspecified hearing loss, unspecified ear (14) Esophageal abnormality Status: Acute Category: Medical Code(s): K22.9 - Disease of esophagus, unspecified (15) Cardiac
[2021-03-04] VITALS (7 sets, daily range): BP systolic 110–127; BP diastolic 71–74; PULSE 70–88; RESP 15–20; TEMP 36.3–36.4; O2SAT 90–97; BMI 16.2
--- NOTE | 2021-03-04 | XR_ITS ---
FINAL REPORT CLINICAL HISTORY: ASPIRATION FROM UPPER GI STUDY FINDINGS: Mild cardiomegaly is noted. There has been prior median sternotomy. There is a left subclavian pacemaker. The mediastinum is unremarkable. There are skin spencer projecting over the upper left chest wall. There is chronic interstitial opacity in both lungs. There is no pleural effusion. There is no pneumothorax. The bony thorax is intact. Contrast is seen within the stomach. IMPRESSION: No acute cardiopulmonary process. Reviewed, Interpreted and Dictated by Salvador Ferreira MD Transcribed by Rick Pierson Authenticated by Salvador Ferreira MD on 03/04/2021 11:33:01 AM [facility]
--- NOTE | 2021-03-04 07:06 | HMH.GSPN ---
Subjective Narrative: The patient is resting. Per nursing staff, the patient has done fine overnight . Progress Note: A&P (1) Syncope Status: Acute (2) Sick sinus syndrome Status: Acute (3) Coronary artery disease Status: Acute (4) Hypertension Status: Acute (5) History of coronary artery bypass graft Status: Acute (6) Hyperlipidemia Status: Acute (7) Frequent PVCs Status: Acute (8) Right bundle branch block Status: Acute (9) First degree AV block Status: Acute (10) Dysphagia Status: Acute (11) Weight loss Status: Acute (12) Hypothyroidism Status: Acute (13) Hearing deficit Status: Acute (14) Esophageal abnormality Status: Acute (15) Cardiac pacemaker recipient Status: Acute (16) Esophageal diverticulum Status: Acute Assessment and plan: Overall, doing well status post EGD. Esophagram scheduled for this morning to assess for possible leak status post EGD Continue clear liquids with slow advancement to full liquids and then potentially advancement to a very soft diet Exam Vital signs and Labs for Last 24 Hours: Temp Pulse Resp BP Pulse Ox 97.4 F L 80 18 121/71 90 L 03/04/21 04:00 03/04/21 05:00 03/04/21 04:00 03/04/21 04:00 03/04/21 04:00 Laboratory Results - last 24 hr 03/03/21 05:40: WBC 7.5 D, RBC 3.53 L, Hgb 11.0 L, Hct 34.6 L, MCV 98.0 H, MCH 31.3 H, MCHC 31.9, RDW 14.6, Plt Count 188, MPV 9.2, Neut % (Auto) 87.7 H, Lymph % (Auto) 7.4 L, [place] % (Auto) 4.3, Eos % (Auto) 0.4, Baso % (Auto) 0.2, Neut # (Auto) 6.6, Lymph # (Auto) 0.5 L, [place] # (Auto) 0.3, Eos # (Auto) 0.0, Baso # (Auto) 0.0, Total Counted 100, Neutrophils % (Manual) 89 H, Lymphocytes % (Manual) 8 L, Monocytes % (Manual) 1 L, Eosinophils % (Manual) 1, Blast Cells % 1.0, Platelet Estimate Normal, Hypochromasia 1+, Macrocytosis 1+ 03/03/21 05:40: Sodium 129 L, Potassium 4.0, Chloride 98, Carbon Dioxide 29, Anion Gap 6.0, BUN 29 H, Creatinine 1.30 H, Estimated Creat Clear 28, Estimated GFR 52 L, Est GFR ( Amer) 63, Glucose 95, Calcium 7.7 L, Total Bilirubin 0.5, Direct Bilirubin 0.1, Conjugated Bilirubin 0.0, Indirect Bilirubin 0.4, Unconjugated Bilirubin 0.5, AST 38, ALT 15, Alkaline Phosphatase 95, Total Protein 5.3 L, Albumin 2.2 L, Triglycerides 58, Cholesterol 68 L, LDL Cholesterol Direct 41.12 L, VLDL Cholesterol 12, HDL Cholesterol 16 L, Cholesterol/HDL Ratio 4.3 H I & O for Last 24 hours: Intake & Output 03/01/21 03/02/21 03/03/21 03/04/21 11:59 11:59 11:59 11:59 Intake Total 1382 / 1382 1360 / 1360 659 / 659 Output Total 200 / 200 250 / 250 350 / 350 Balance 1182 / 1182 1110 / 1110 309 / 309 Weight 95 lb 9.6 oz 98 lb 6.4 oz 104 lb 101 lb 6.4 oz - Constitutional no acute distress - *Routine Respiratory Exam Absent: respiratory distress - *Routine Cardiovascular Exam Absent: tachycardia
--- NOTE | 2021-03-04 08:37 | HMH.ACPN2 ---
Internal Medicine - PN: Subj *Date: 03/04/21 *Time: 08:37 Interval history: Patient states he is feeling well this morning. He denies any pain and states he slept. He is n.p.o. this morning for further imaging. Exam Vital signs and Labs for Last 24 Hours: Temp Pulse Resp BP Pulse Ox 97.5 F L 74 20 110/73 97 03/04/21 07:52 03/04/21 07:58 03/04/21 07:52 03/04/21 07:52 03/04/21 07:53 Laboratory Results - last 24 hr 03/03/21 05:40: Total Counted 100, Neutrophils % (Manual) 89 H, Lymphocytes % (Manual) 8 L, Monocytes % (Manual) 1 L, Eosinophils % (Manual) 1, Blast Cells % 1.0, Platelet Estimate Normal, Hypochromasia 1+, Macrocytosis 1+ I & O for Last 24 hours: Intake & Output 03/01/21 03/02/21 03/03/21 03/04/21 11:59 11:59 11:59 11:59 Intake Total 1382 / 1382 1360 / 1360 659 / 659 Output Total 200 / 200 250 / 250 350 / 350 Balance 1182 / 1182 1110 / 1110 309 / 309 Weight 95 lb 9.6 oz 98 lb 6.4 oz 104 lb 101 lb 6.4 oz - Constitutional no acute distress, cachectic - *Routine Respiratory Exam Present: CTA bilaterally - *Routine Cardiovascular Exam Present: RRR - *Routine Abdominal Exam Present: soft, normoactive bowel sounds. Absent: tenderness - *Routine Extremities Exam Present: edema (1+ bilateral LE). Absent: cyanosis, clubbing - *Routine Skin Exam Present: warm. Absent: rash - *Routine Neurological Exam Present: alert, oriented X3 Assessment and Plan (1) Syncope Status: Acute Category: Medical Code(s): R55 - Syncope and collapse (2) Sick sinus syndrome Status: Acute Category: Medical Code(s): I49.5 - Sick sinus syndrome (3) Coronary artery disease Status: Acute Qualifiers: Coronary Disease-Associated Artery/Lesion type: bypass graft [place] vs. transplanted heart: [place] heart Associated angina: without angina Qualified Code(s): I25.810 - Atherosclerosis of coronary artery bypass graft(s) without angina pectoris Category: Medical Code(s): I25.10 - Atherosclerotic heart disease of [place] coronary artery without angina pectoris (4) Hypertension Status: Acute Category: Medical Code(s): I10 - Essential (primary) hypertension (5) History of coronary artery bypass graft Status: Acute Category: Surgical Code(s): Z95.1 - Presence of aortocoronary bypass graft (6) Hyperlipidemia Status: Acute Category: Medical Code(s): E78.5 - Hyperlipidemia, unspecified (7) Frequent PVCs Status: Acute Category: Medical Code(s): I49.3 - Ventricular premature depolarization (8) Right bundle branch block Status: Acute Category: Medical Code(s): I45.10 - Unspecified right bundle-branch block (9) First degree AV block Status: Acute Category: Medical Code(s): I44.0 - Atrioventricular block, first degree (10) Dysphagia Status: Acute Category: Medical Code(s): R13.10 - Dysphagia, unspecified (11) Weight loss Status: Acute Category: Medical Code(s): R63.4 - Abnormal weight loss (12) Hypothyroidism Status: Acute Category: Medical Code(s): E03.9 - Hypothyroidism, unspecified (13) Hearing deficit Status: Acute Category: Medical Code(s): H91.90 - Unspecified hearing loss, unspecified ear (14) Esophageal abnormality Status: Acute Category: Medical Code(s): K22.9 - Disease of esophagus, unspecified (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 Hayes this morning and he is n.p.o. because an esophagram has been scheduled to assess for possible leak status post EGD. Dr. Hayes wants to continue him on clear liquids with slow advancement to full liquids. Cardiology to follow as well. Will discuss f
--- NOTE | 2021-03-04 09:00 | FL_ITS ---
FINAL REPORT CLINICAL HISTORY: . r/o leak post egd fluoro time-1.24 FINDINGS: LIMITED BARIUM SWALLOW HISTORY: Status post EGD with debris removal from esophageal diverticulum, evaluate for leak. PROCEDURE: The patient ingested 2 sips of Isovue contrast. Spot images were obtained. A total of 13 images were saved. FINDINGS: There was martha aspiration of the initial sip of contrast. Contrast was seen in the right mainstem bronchus. Therefore, only 1 additional sip of contrast was administered. Evaluation of the esophagus was limited. There were complex filling defects identified within the partially opacified large esophageal diverticulum. There was no obvious leak of contrast identified. There was esophageal dysmotility. Fluoroscopy time: 1.24 minutes. IMPRESSION: Aspiration of contrast again noted. Therefore, evaluation was extremely limited. Complex filling defects were seen within the partially opacified large esophageal diverticulum. There was no obvious leak of contrast seen. Reviewed, Interpreted and Dictated by Salvador Ferreira MD Transcribed by Meme Portillo PA-C Authenticated by Salvador Ferreira MD on 03/04/2021 11:33:19 AM [facility]
--- NOTE | 2021-03-04 09:38 | HMH.OTEV ---
OT Inpatient Evaluation Rehab OT IP Evaluation Start: 03/03/21 11:27 Freq: ONCE Status: Complete Protocol: Document 03/04/21 09:22 JESUS (Rec: 03/04/21 09:37 [place] [id number]) Rehab OT IP Assessment Subjective History 86 yo male w/ hx CAD s/p CABG 12 years ago, HTN, HLD, hypothyroidism, GERD, presents for evaluation of syncope. Patient had syncopal episode lasting 20 seconds earlier tonight while sitting at home eating ice cream. family at bedside state patient lost consciousness suddenly for approximately 20 seconds without obvious shaking activity. Patient has not had similar episode before. Patient states he feels fine now but felt short of breath during his spell earlier. Family notes patient has had difficulty eating in last 6 months, with frequent vomiting , choking episodes, intermittent diarrhea. Dr. Sr spoke with family to review the history. Patient has significant hearing deficit. Family was present during this apparent syncopal episode. He rapidly gained consciousness, no loss odf bowel or bladder. Sounds c/w cardiac dysrrhythmia with syncope, and indeed, he monitors frequnt PVC's. The dysphagia has been present for some time and has resulted in weight loss. He has avoided evaluation. [facility] History I have reviewed the patient's past medical history: Yes Medical History: Reports:: Arrhythmia, Atherosclerotic Heart Disease, Gastroesophageal Reflux Disease(GERD) Patient lives in 1 story home with no steps to enter with
--- NOTE | 2021-03-04 10:42 | HMH.SLDYSPHA ---
Speech & Language Evaluation Speech/Language Dysphagia Evaluation Start: 03/04/21 10:07 Freq: ONCE Status: Active Protocol: Document 03/04/21 10:17 SUKHJINDER (Rec: 03/04/21 10:41 SUKHJINDER [id number]) Dysphagia Assess/Goals/Plan Assessment Date of Evaluation: 03/04/21 Evaluation Type Initial Certification Assessment/Problems Dysphagia Does Patient Qualify for Service No Qualify/Failure Comment Based on the results of the beside swallow evaluation, pt requires further assessment to determine if he qualifies for skilled speech therapy services at this time. A modified barium swallow study will be scheduled for this afternoon. Recommendations PHYSICIAN CERTIFICATION: The specified therapy services are required, authorized, and reviewed every 30 days. Diet Recommendations NPO with MBSS. Plan Pt/Guardian verbally ack understanding Yes of dx/prognosis/goals Pt/Guardian verbally ack understanding Yes of/consent to tx prog G -code Required No Education Instructions provided Continueing NPO diet with follow-up MBSS discussed with patient, nursing, and care management. Pt/Caregiver able to recall information Unable to ind. understand Reinforcement needed No Speech & Language HPI History Present Illness Description of Patient Problem Mr. Singh is an 86 year old man who presented to the ER with complaints of syncope. PMH includes: CAD s/p CABG 12 years ago, GERD, HTN, HLD, and hypothyroidism. He is also significantly hard of hearing . He underwent a procedure for a permanent pacemaker placement on 03/02/21. Esophagogastroduodenoscopy was completed and a large diverticulum was found at 30 cm. Additional testing was attempted, but was unable to be completed secondary to aspiration per nursing. Rehab Services Assessed Speech therapy Is this evaluation r/t stroke? No Hearing Hearing Ability Hard of Hearing Language [place] Lang/Spoken in Home Polish Accent Affect Communication? No General Information Gener
--- NOTE | 2021-03-04 10:47 | HMH.PNCARD ---
Subjective Date: 03/04/21 Time: 10:30 Principal diagnosis: symptomatic bradycardia, sss Interval history: This is a 89-year-old white gentleman who presented to the emergency department with syncope. The patient was found to have sick sinus syndrome, symptomatic bradycardia and syncope. He underwent permanent pacemaker placement with a dual-chamber permanent pacemaker and tolerated this well. He denies any pain today. He does have some soreness when you touch the site but no pain. He denies any chest pain or pressure. He denies shortness of breath or edema. He denies fever, chills, nausea, vomiting, diarrhea, PND or orthopnea. 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 Exam Vital signs and Labs for Last 24 Hours: Temp Pulse Resp BP Pulse Ox 97.5 F L 74 20 110/73 97 03/04/21 07:52 03/04/21 07:58 03/04/21 07:52 03/04/21 07:52 03/04/21 07:53 I & O for Last 24 hours: Intake & Output 03/01/21 03/02/21 03/03/21 03/04/21 23:59 23:59 23:59 23:59 Intake Total 840 / 840 1315 / 1315 827 / 827 419 / 419 Output Total 200 / 200 250 / 250 350 / 350 Balance 640 / 640 1315 / 1315 577 / 577 69 / 69 Weight 95 lb 9.6 oz 98 lb 6.277 oz 104 lb 101 lb 6.4 oz - Constitutional no acute distress, thin - *Routine HEENT Exam Head: Present: normocephalic, atraumatic Eye: Present: EOMI, PERRL ENT: Present: mucous membranes moist - *Routine Neck Exam Present: supple, full ROM, normal carotid upstroke. Absent: JVD, carotid bruit, lymphadenopathy - *Routine Respiratory Exam Present: CTA bilaterally - *Routine Cardiovascular Exam Present: RRR, Normal S1, Normal S2. Absent: murmur - *Routine Abdominal Exam Present: soft, normoactive bowel sounds. Absent: tenderness, distended - *Routine Extremities Exam Present: full ROM, pulses intact, normal capillary refill. Absent: cyanosis, clubbing, edema - *Routine Skin Exam Present: intact, warm. Absent: erythema, rash - *Routine Neurological Exam Present: alert, oriented X3, CN II-XII intact. Absent: sensory deficit, motor deficit Progress Note: A&P (1) Syncope Status: Acute (2) Sick sinus syndrome Status: Acute (3) Coronary artery disease Status: Acute (4) Hypertension Status: Acute (5) History of coronary artery bypass graft Status: Acute (6) Hyperlipidemia Status: Acute (7) Frequent PVCs Status: Acute (8) Right bundle branch block Status: Acute (9) First degree AV block Status: Acute (10) Dysphagia Status: Acute (11) Weight loss Status: Acute (12) Hypothyroidism Status: Acute (13) Hearing deficit Status: Acute (14) Esophageal abnormality Status: Acute (15) Cardiac pacemaker recipient Status: Acute (16) Esophageal diverticulum Status: Acute Assessment and Plan for All Diagnoses:: Plan: 1. The patient was admitted to the hospital after syncopal episode. He lost consciousness for approximately 20 seconds. 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 Therefore he minute pacemaker placement and tolerated the procedure well. The site is a little sore to touch but he denies any pain. It is healing well with no signs of infection noted. 2. The patient has been restarted on his beta-atiya because of his frequent ventricular ectopy. 3. The patient does have a history of coronary artery disease and is status post coronary artery bypass grafting. He denies any chest pain or pressure. He ruled out for an DE. No plans for invasive left cardiac catheterization at this time. 4. The patient would likely benefit from an ischemic evaluation which can be done on an outpatient basis since he has not seen cardiology in several years. 5. His blood pressures well controlled. 6. His LD
--- NOTE | 2021-03-04 11:33 | SW/DCPLANNER ---
Addendum entered by Danni Graham 03/04/21 15:07: Patient information/order has been faxed to [facility]. Addendum entered by Danni Graham 03/04/21 13:18: [facility]/ Nina has stated that bedside commode will be delivered to patients home. Addendum entered by Danni Washington 03/04/21 12:45: Patient and have decided to discharge home with home health services once medically stable for discharge. did not have a home health agency preference. has also requested a bedside commode be ordered from [facility]: I will order this today. Discharge date is unknown at this time but I will continue to follow up with family until ready for discharge. Original Note: I spoke with this patient and his family regarding discharge plans. Patient currently resides at home with his and assistance from their children. PT/OT was consulted and recommended SNF level of care at time of discharge. I discussed placement vs home health services with patient, and son. stated that she would prefer that patient return home with home health services. I did explain this to patient and he asked to have some time to discuss this with his prior to making a decision. I will revisit with patient and this afternoon regarding discharge plans. Patient could discharge home later today or tomorrow.
--- NOTE | 2021-03-04 12:51 | PC.NURSE ---
pt will need bsc due to distance to bathroom in house
--- NOTE | 2021-03-04 13:25 | FL_ITS ---
FINAL REPORT CLINICAL HISTORY: . ASPIRATION FINDINGS: MODIFIED BARIUM SWALLOW HISTORY : Dysphagia. FINDINGS: Fluoroscopy was provided for the speech pathologist to evaluate the swallowing mechanism. The patient was given several different consistencies of barium while the swallow was visualized fluoroscopically. The report of the speech pathologist should be consulted prior to making dietary decisions. IMPRESSION: Modified barium swallow under fluoroscopic guidance. Please see speech pathologist's report for further details and dietary recommendations. Fluoroscopy time was 3.28 minutes. 14 cine runs were saved. Reviewed, Interpreted and Dictated by Salvador Ferreira MD Transcribed by Meme Portillo PA-C Authenticated by Salvador Ferreira MD on 03/06/2021 08:31:[address] [facility]
--- NOTE | 2021-03-04 14:08 | HMH.SLMBS2 ---
Speech & Language Evaluation Speech/Language Mod Barium Swallow Start: 03/04/21 10:06 Freq: once Status: Complete Protocol: Document 03/04/21 13:52 SUKHJINDER (Rec: 03/04/21 14:08 SUKHJINDER [id number]) General Information General Current Food Consistancy NPO Dentition Poor Dentition Oxygen Status Room Air Facial Symmetry Symmetrical Ability to Follow Directions Good Communication Ability No Impairment MBS Recommendations Diet Dietary Recommendations Mechanical Soft,Ground Meats, [place] Liquids Treatment/Strategies Strategy/Precaution Recommend Sitting Upright (90 deg),Small Bites and Sips,Alternate Liquids/Solids Mod Barium Swallow Impressions Summary and Impressions Oral Phase Impression Moderate Impairment Oral Phase Summary Prolonged mastication of solids noted 2' poor dentition . Pharyngeal Phase Impression Moderate Impairment Pharyngeal Phase Summary Silent aspiration of thin liquids during the swallow with continued aspiration of thin residue after the swallow . Speech/Language MBS Assessment/Goals/Plan Assessment Date of Evaluation: 03/04/21 Evaluation Type Initial Certification Assessment/Problems Dysphagia Does Patient Qualify for Service Yes Qualify/Failure Comment Based on the results of the modified barium swallow study, pt does qualify for skilled speech therapy services at this time. Recommendations PHYSICIAN CERTIFICATION: The specified therapy services are required, authorized, and reviewed every 30 days. Pt will be seen # times/week 3 for # weeks 4 Diet Recommendations Mechanical Soft Liquid Type Recommendations [place] Consistency SL Swallow Guidelines Assist w/all meals,Alt bite w/ sip thru meal,High aspiration risk,Crush meds as allowed* Crush Meds Crush all meds Dysphagia Swallow Precautions/Strategies Sitting Upright (90 deg),Small Bites and Sips,Alternate Liquids/Solids Place Food on Either side of Mouth Plan Anticipate reaching STG in # weeks 2 Anticipate reaching LTG in # weeks 4 Pt/Guardian verbally ack understanding Yes of dx/prognosis/goals Pt/Guardian verbally ack understanding Yes of/consent to tx prog G -code Required
--- NOTE | 2021-03-04 15:18 | DIET.NUTRFU ---
Reviewed swallow study results- ground meats with nectar thick liquids, he was unable to tolerate thin liquids. Kitchen aware. Will start nectar thick ensure with all trays to help meet nutritional needs.
--- NOTE | 2021-03-04 16:21 | PC.NURSE ---
PT WAS DISCHARGED HOME WITH FAMILY AND HOME HEALTH. PT WILL NEED TO BE ON A [facility] SOFT DIET WITH NECTAR THICK LIQUIDS. PT WAS ENCOURAGED TO DRINK ENSURE/BOOST WITH MEALS. PT WILL FOLLOW UP WITH 03/15 AND CARDIOLOGY 03/11.
--- NOTE | 2021-03-09 22:00 | HMH.DCSUM ---
General - General Admission date:: 03/02/21 Discharge date: 03/04/21 HPI HPI: From the ER narrative: 86 yo male w/ hx CAD s/p CABG 12 years ago, HTN, HLD, hypothyroidism, GERD, presents for evaluation of syncope. Patient had syncopal episode lasting 20 seconds earlier tonight while sitting at home eating ice cream. family at bedside state patient lost consciousness suddenly for approximately 20 seconds without obvious shaking activity. Patient has not had similar episode before. Patient states he feels fine now but felt short of breath during his spell earlier. Family notes patient has had difficulty eating in last 6 months, with frequent vomiting, choking episodes, intermittent diarrhea. Dr. Sr spoke with family to review the history. Patient has significant hearing deficit. Family was present during this apparent syncopal episode. He rapidly gained consciousness, no loss odf bowel or bladder. Sounds c/w cardiac dysrrhythmia with syncope, and indeed, he monitors frequnt PVC's. The dysphagia has been present for some time and has resulted in weight loss. He has avoided evaluation. Hospital Course Hospital Course: An upper GI was ordered to evaluate the patient's dysphagia. Cardiology was consulted and his heart rhythm was monitored as it was felt cardiac dysrhythmia had caused his syncope. His head CT showed acute on chronic left sphenoid sinusitis but no acute intracranial pathology. His chest x-ray showed COPD but no focal consolidation. He was placed on telemetry and his heart rate was in the 30s during the night. He was seen in consultation by cardiology and an echo was ordered. It showed an EF of 45-50% with segmental wall motion abnormality. There was a thickened and calcified aortic valve without aortic stenosis. His right ventricular systolic pressure was 72 mmHg. Cardiology felt that the patient's bradycardia and his first-degree AV block and right bundle branch block and likely caused a syncopal episode. They felt he had sick sinus syndrome and would need a pacemaker placed. The pacemaker was placed on 03/02/2021 and the patient tolerated the procedure well. His upper GI showed an extremely limited exam due to the patient aspirating the contrast. There was a large mid esophageal diverticulum with filling deficits within the diverticulum. Radiology could not exclude a neoplasm and recommended an upper endoscopy. Surgery was therefore consulted for an EGD. Dr. Hayes saw the patient and performed an EGD. He found a very large diverticulum with ingested food particles throughout. There was severe inflammation but no definitive mass. He recommended a clear liquid diet and a Gastrografin esophagram to evaluate for possible leak status post foreign body removal. Dr. Sr added 2.5 mg of metoclopramide before meals at bedtime. The patient had his Gastrografin study and it again showed aspiration of contrast, therefore evaluation was extremely limited. There were complex filling defects within the partially opacified large esophageal diverticulum but no obvious leak seen of the contrast. He had a modified barium swallow and had silent aspiration of thin liquids during the swallow with continued aspiration of the thin residue after the swallow. Based on these results, the patient qualified for skilled speech therapy. He was placed on mechanical soft nectar consistency diet and should have assistance with all meals. It was felt he could be discharged home and he will follow up with Dr. Sr as well as cardiology. Objective Vital signs: Temp Pulse Resp BP Pulse Ox 97.4 F L 88 15 127/74 96 03/04/21 12:00 03/04/21 12:00 03/04/21 12:00 03/04/21 12:00 03/04/21 12:00 Narrative: - Constitutional no acute distress, thin, cachectic - *Routine HEENT Exam Head: Present: normocephalic Eye: Present: EOMI, PERRL ENT: Present: mucous membranes moist - *Routine Neck Exam Present: TARSHA deleon
== END 2021-03-04 15:50 | disposition home health service (06) | DRG 244 ==
LOC: ER 18:33 → ICU 23:08
PROVIDERS: Internal Medicine; Nurse Practitioner Family; Surgery; Admitting Provider Family Medicine; Emergency Provider Student in an Organized Health Care Education/Training Program; PCP Family Medicine; Visit Provider Family Medicine
PROC: 0JH606Z Insertion of Pacemaker, Dual Chamber into Chest Subcutaneous Tissue and Fascia, Open Approach (ICD-10-PCS; principal; 2021-03-02 14:35)
PROC: 0DJ08ZZ Inspection of Upper Intestinal Tract, Via Natural or Artificial Opening Endoscopic (ICD-10-PCS; CPT 43235; principal; 2021-03-03 14:30)
DX: I49.5 Sick sinus syndrome (principal); I25.10 Atherosclerotic heart disease of native coronary artery without angina pectoris; Z95.1 Presence of aortocoronary bypass graft; K21.9 Gastro-esophageal reflux disease without esophagitis; E03.9 Hypothyroidism, unspecified; E78.5 Hyperlipidemia, unspecified; I10 Essential (primary) hypertension; I49.3 Ventricular premature depolarization; K22.5 Diverticulum of esophagus, acquired
CPT/HCPCS: 43235; 33208; 36415; 70371; 70450; 71045; 74221; 74240; 74246; 80048; 80053; 80061; 80076; 82330; 83735; 83880; 84100; 84436; 84443; 84484; 85007; 85025; 92610; 92611; 93005; 93306; 97161; 97165; 97530; 99284; C1785; C1898; C9803; G0378; Q9967; U0003; U0005

== ENCOUNTER → 2021-04-08 14:16 | Outpatient (CLI) | payer MEDICARE, SELFPAY ==
[2021-04-08 14:40] LABS: Chloride 100 mmol/L (98-107); Sodium 131 mmol/L (136-145)
[2021-04-08 14:41] LABS: Potassium 5.5 mmoL/L (3.5-5.1)
[2021-04-08 14:43] LABS: Blood Urea Nitrogen 37 mg/dl (9-20); Estimated Glomerular Filt Rate 52 ml/min (>60); GFR (African American) 63 ML/MIN (>60)
[2021-04-08 14:44] LABS: Anion Gap 13.5 mEq/L (5-15); Calcium 8.5 mg/dl (8.4-10.2); Carbon Dioxide 23 mmol/L (22.0-30.0); Glucose 112 mg/dl (74-100); Magnesium 1.9 mg/dl (1.6-2.3)
== END ==
PROVIDERS: Visit Provider Physician Assistant
DX: E78.5 Hyperlipidemia, unspecified (principal); I10 Essential (primary) hypertension; I25.810 Atherosclerosis of coronary artery bypass graft(s) without angina pectoris; I42.9 Cardiomyopathy, unspecified; R94.31 Abnormal electrocardiogram [ECG] [EKG]; Z95.0 Presence of cardiac pacemaker; Z95.1 Presence of aortocoronary bypass graft
CPT/HCPCS: 80048; 83735

== ENCOUNTER → 2021-04-20 16:17 | Outpatient (CLI) | payer MEDICARE, SELFPAY ==
[2021-04-20 17:29] LABS: Anion Gap 9.5 mEq/L (5-15); Blood Urea Nitrogen 38 mg/dl (9-20); Calcium 8.3 mg/dl (8.4-10.2); Carbon Dioxide 22 mmol/L (22.0-30.0); Chloride 105 mmol/L (98-107); Estimated Glomerular Filt Rate 58 ml/min (>60); GFR (African American) 70 ML/MIN (>60); Glucose 91 mg/dl (74-100); Potassium 4.5 mmoL/L (3.5-5.1); Sodium 132 mmol/L (136-145)
== END ==
PROVIDERS: Visit Provider Nurse Practitioner Family
DX: E78.5 Hyperlipidemia, unspecified (principal); I10 Essential (primary) hypertension; I25.10 Atherosclerotic heart disease of native coronary artery without angina pectoris; I42.9 Cardiomyopathy, unspecified; R44.3 Hallucinations, unspecified; R94.31 Abnormal electrocardiogram [ECG] [EKG]; Z95.0 Presence of cardiac pacemaker; Z95.1 Presence of aortocoronary bypass graft
CPT/HCPCS: 36415; 80048

== ENCOUNTER 2021-05-16 20:48 | Day surgery (SDC) | payer MEDICARE, SELFPAY ==
[2021-05-16] VITALS (9 sets, daily range): BP systolic 92–123; BP diastolic 53–72; PULSE 65–81; RESP 12–20; TEMP 36.3–36.6; O2SAT 96–100; BMI 13.2
--- NOTE | 2021-05-16 20:58 | XR_ITS ---
PROCEDURE INFORMATION: Exam: XR Chest Exam date and time: 05/16/2021 9:03 PM Age: 86 years old Clinical indication: Sternal or substernal pain; Prior surgery; Surgery date: 6+ months; Surgery type: Open heart surgery and pacemaker; Patient HX: Choked trying to swallow pill tonight , chest pain, cough; Additional info: Chest pain, poss foreign body TECHNIQUE: Imaging protocol: XR of the chest. Views: 1 view. COMPARISON: CR XR CHEST AP 03/04/2021 9:22 AM FINDINGS: Tubes, catheters and devices: Cardiac leads are noted. Lungs: Hyperexpanded lungs suggests emphysema. Bilateral apical scarring. Pleural spaces: Unremarkable. No pleural effusion. No pneumothorax. Heart/Mediastinum: Unremarkable. No cardiomegaly. Vasculature: Status post median sternotomy and coronary artery bypass. Bones/joints: See Vasculature finding. IMPRESSION: No acute findings.
--- NOTE | 2021-05-16 21:37 | PC.NURSE ---
Dr. Hayes paged
--- NOTE | 2021-05-16 21:42 | PC.NURSE ---
Notified housekeeping attendant to call surgery team
--- NOTE | 2021-05-16 21:43 | PC.NURSE ---
[id number] called to request surgery team to be paged. Surgery team paged at [phone] Calls returned: Madisyn @ [phone] Helen @[phone] Josette-Registration states that it going to voicemail. Registration states they have attempted to call her twice.
--- NOTE | 2021-05-16 21:45 | HMH.EDGENADL ---
ED Disposition Clinical Impression: Acute esophageal obstruction Disposition: Still a Patient Condition on Discharge: Fair Referrals: Jose Sr MD [Primary Care Provider] - - Critical Care Critical Care Time: No Attestation: On 05/16/21, the high probability of a clinically significant, sudden or life threatening deterioration of the following system(s) required my full and direct attention, intervention and personal management. The time I documented below is in addition to time spent performing reported procedures but includes the following listed in this critical care notation. Medical Decision Making - Rocky Inquiry Pt receiving controlled substance: No Vital Signs: 05/16/21 20:50 Temperature 97.5 F L Temperature Source Oral Pulse Rate [Left] 68 Respiratory Rate 16 Blood Pressure [Right Arm] 123/65 Blood Pressure Mean [Right Arm] 84 02 Sat by Pulse Oximetry 98 Oxygen Delivery Method Room Air Orders (Tests/Meds): ED MEDICATIONS Generic Name Dose Route Start Last Admin Trade Name Freq PRN Reason Stop Dose Admin Sodium Chloride 10 ml 05/16/21 21:48 Sodium Chloride 0.9% 10ml Flush Syringe IV 06/15/21 21:47 NEEDED PRN Maintain IV Site ORDERS Category Date Time Status CXR --portable [XR chest portable] Stat Exams 05/16/21 20:58 Taken Rapid PCR Covid and Flu A/B Stat Lab 05/16/21 21:48 Ordered Medical Decision Narrative: The patient is an 86 year old male with a history of CAD who presents to the ED with concern for esophageal foreign body and inability to tolerate PO. On exam he is well appearing. He is unable to swallow water. He does need to occasionally spit his secretions but is not in extremis or any respiratory distress. CXR was obtained - no foreign body seen by myself. The family thinks that it is a clindamycin capsule. Before that all he ate was jello and pudding. The last time he ate was 2:30 pm. Clinically patient does have esophageal obstruction. Surgery was consulted for EGD. Discussed case with Dr. Quezada who is agreeable to take the patient to the OR for a scope. Discussed with patient and his . General Adult HPI - General Chief complaint: Skin/Abscess/Foreign Body Stated complaint: pill stuck in throat Time Seen by Provider: 05/16/21 20:55 Mode of Arrival: Wheelchair Limitations: No Limitations Description of Symptoms (Recalled from ER Triage Doc. by RN): pt took night meds tonight and has a pill that is lodged in his thrown - History of Present Illness HPI narrative: The patient is an 86 year old male with a history CAD w/ pacemaker who presents to the ED with concern for an esophageal foreign body. The patient states this morning he ate jello and pudding. After that he took a clindamycin. He feels like it is stuck in his throat. He has not been able to drink anything after this - he states when he swallows it comes back out immediately. He has no chest pain or shortness of breath. He is very hard of hearing so history is limited. No fever, nausea, vomiting, diarrhea, no other symptoms. - Related Data Home Medications Medication Instructions Recorded Confirmed Atorvastatin Calcium [Lipitor 20mg 20 mg PO HS 02/28/21 04/22/21 Tab] Metoprolol Succinate [Metoprolol 25 mg PO DAILY 02/28/21 04/22/21 Succinate 25mg Tablet*] Omeprazole [Omeprazole 20mg Tab] 20 mg PO DAILY 02/28/21 04/22/21 aspirin 81 mg tablet,delayed 81 mg PO DAILY 04/14/21 04/22/21 release Previous Rx's Medication Instructions Recorded Levothyroxine Sodium [Synthroid 50 mcg PO DAILYDM #100 tab 03/04/21 50mcg (0.05mg) tab] Allergies Allergy/AdvReac Type Severity Reaction Status Date / Time Penicillins Allergy Unknown Verified 04/22/21 09:40 [facility] History - Hepatitis A Screen Drug use history?: No High risk sexual behaviors?: No History of sexually transmitted infection?: No Currently employed?: No Childcare worker?: No Do you lópez
--- NOTE | 2021-05-16 21:51 | PC.NURSE ---
[id number] called to request surgery team to be paged. Surgery team paged at [phone] Calls returned: Madisyn @ [phone] Helen @5 Josette @ [phone]
[2021-05-16 21:53] LABS: Coronavirus 19, PCR Not Detected (NotDetected); Influenza A, PCR Not Detected (NotDetected); Influenza B, PCR Not Detected (NotDetected)
--- NOTE | 2021-05-16 22:07 | PC.NURSE ---
went in to witness informed consent for Dr Quezada
--- NOTE | 2021-05-16 22:15 | HMH.ANESCL ---
[facility] Anesthesia Checklist - Patient Identification Patient Identification: Arm Band - Structural Data Admitted From: Emergency Dept Planned Operative Procedure/s: EGD Consent for Planned Operative Procedure(s) Verified: Yes - NPO Status Verified Time NPO: 02:00 - Airway Assessment C-Spine Mobility Assessed: Yes TMJ Mobility Assessed: Yes Dentition: Edentulous - Neurological Assessment Level of Consciousness: Awake Hx Seizures: No Numbness or tingling in extremities: No - Anesthesia Plan Anesthesia Risk discussed: Yes Anesthesia Plan: Verified ASA Class: III Anesthesia Type: MAC [facility] History I have reviewed the patient's past medical history: Yes Medical History: Reports:: Arrhythmia, Atherosclerotic Heart Disease, Coronary Artery Disease, Gastroesophageal Reflux Disease(GERD), Hyperlipidemia, Hypertension, Internal Pacemaker Denies:: Congestive Heart Failure, Cerebrovascular Accident, Dementia, Gastrointestinal Bleed, Myocardial Infarction, Peripheral Vascular Disease, Pulmonary Embolism, Seizures, Transient Ischemic Attacks (TIA) *Have you ever received a pneumonia vaccine?: Yes *Have you received a flu vaccine this season?: Yes Other Medical History: Reports: Hypothyroidism. Denies: Hoarseness, Hormone Therapy Anesthesia experience/problems:: None Other Surgeries: Yes: CABG, EGD, Pacemaker Amputation: No Fractures: No - *Social History Smoking Status: Never smoker Alcohol Intake: never Substance Use Type: denies use *Occupational Status:: retired *Travel in the last 8 weeks: None Family Hx:: Hypertension
--- NOTE | 2021-05-16 22:49 | P.PCN_ITS ---
- Procedure: Date: 05/16/21 Patient Date of :: 1935 Procedure Performed:: Esophagogastroduodenoscopy Indications:: Esophageal foreign body Large esophageal diverticulum Performing Provider:: Devon Hayes MD Referring Provider:: . Sedation:: Monitored anesthesia care Procedure:: After informed consent was obtained the patient was taken to the endoscopy suite. Sedation ensued after the patient was transferred to the left lateral decubitus position. Pulse, blood pressure, and oxygen saturation were monitored throughout the procedure. The endoscope was advanced beyond the duodenal bulb. Retroflexion within the gastric lumen was accomplished. The gastroscope was carefully removed and the patient was transferred to recovery in stable c ondition. Please see findings and specimens below for detail. Findings:: Large unchanged diverticulum Scattered food particles within diverticulum (improved versus prior evaluation) No evidence of acute obstruction secondary to foreign body Specimens:: None Recommendations:: Clear liquid diet x24 hours followed by full liquids Discussion with regard to percutaneous endoscopic gastrostomy tube will be ongoing. Complications:: No immediate Estimated blood obtained (mL): 0
== END 2021-05-16 23:45 | disposition home or self-care (01) ==
PROVIDERS: Surgery; PCP Family Medicine; Visit Provider Emergency Medicine
PROC: 0DJ08ZZ Inspection of Upper Intestinal Tract, Via Natural or Artificial Opening Endoscopic (ICD-10-PCS; CPT 43235; principal; 2021-05-16 10:30)
DX: T18.198A Other foreign object in esophagus causing other injury, initial encounter (principal); I25.10 Atherosclerotic heart disease of native coronary artery without angina pectoris; Z20.822 Contact with and (suspected) exposure to COVID-19; K21.9 Gastro-esophageal reflux disease without esophagitis; E78.5 Hyperlipidemia, unspecified; Z95.0 Presence of cardiac pacemaker; I10 Essential (primary) hypertension; Z79.899 Other long term (current) drug therapy
CPT/HCPCS: 43235; 71045; 99285; C9803; U0003; U0005

== ENCOUNTER → 2021-05-18 11:22 | Outpatient (CLI) | payer MEDICARE, SELFPAY | PROVIDERS: Visit Provider Surgery | DX: Z01.812 Encounter for preprocedural laboratory examination (principal); Z11.52 Encounter for screening for COVID-19 | CPT/HCPCS: C9803; U0003; U0005 ==

== ENCOUNTER 2021-05-20 06:37 | Observation (INO) | payer MEDICARE, SELFPAY ==
[2021-05-20] VITALS (17 sets, daily range): BP systolic 75–121; BP diastolic 44–66; PULSE 70–80; RESP 14–18; TEMP 34.4–37; O2SAT 93–100; BMI 12.8; BMI 12.9
--- NOTE | 2021-05-20 06:56 | HMH.GSHP ---
HPI HPI: This is an 86-year-old gentleman with significant/intermittent dysphagia and a large esophageal diverticulum. He presents for percutaneous endoscopic gastrostomy tube placement. He recently underwent esophagogastroduodenoscopy secondary to esophageal foreign body. [facility] History Medical History: Reports:: Arrhythmia, Atherosclerotic Heart Disease, Coronary Artery Disease, Gastroesophageal Reflux Disease(GERD), Hyperlipidemia, Hypertension, Internal Pacemaker Denies:: Congestive Heart Failure, Cerebrovascular Accident, Dementia, Gastrointestinal Bleed, Myocardial Infarction, Peripheral Vascular Disease, Pulmonary Embolism, Seizures, Transient Ischemic Attacks (TIA) *Have you ever received a pneumonia vaccine?: Yes *Have you received a flu vaccine this season?: Yes Other Medical History: Reports: Hypothyroidism. Denies: Hoarseness, Hormone Therapy Other Surgeries: Yes: CABG, EGD, Pacemaker Amputation: No Fractures: No - *Social History Smoking Status: Never smoker Alcohol Intake: never Substance Use Type: denies use *Occupational Status:: retired *Travel in the last 8 weeks: None Family Hx:: Hypertension Review of Systems - Review of Systems Review of systems:: unable to obtain Meds Home Medications Medication Instructions Recorded Confirmed Type Atorvastatin Calcium [Lipitor 20mg 20 mg PO HS 02/28/21 04/22/21 History Tab] Metoprolol Succinate [Metoprolol 25 mg PO DAILY 02/28/21 04/22/21 History Succinate 25mg Tablet*] Omeprazole [Omeprazole 20mg Tab] 20 mg PO DAILY 02/28/21 04/22/21 History aspirin 81 mg tablet,delayed 81 mg PO DAILY 04/14/21 04/22/21 History release Levothyroxine Sodium [Synthroid 50 mcg PO DAILYDM 05/20/21 History 50mcg (0.05mg) tab] Allergies Allergy/AdvReac Type Severity Reaction Status Date / Time Penicillins Allergy Unknown Verified 04/22/21 09:40 Exam - Constitutional no acute distress - *Routine HEENT Exam Head: Present: normocephalic Eye: Present: EOMI ENT: Present: mucous membranes moist - *Routine Neck Exam Absent: tenderness - Routine Chest/Breast/Axilla Exam Chest wall: Absent: tenderness - *Routine Respiratory Exam Absent: respiratory distress - *Routine Cardiovascular Exam Absent: tachycardia - *Routine Abdominal Exam Absent: tenderness - *Routine Rectal Exam Rectal:: deferred - *Routine Genitalia Exam Genitalia:: deferred - *Routine Extremities Exam Absent: edema - Routine Back/Spine/Pelvis Exam Back/Spine: Absent: muscle spasm - *Routine Skin Exam Absent: erythema - *Routine Neurological Exam Present: alert. Absent: oriented X3 - Routine Psychiatric Exam Absent: normal thought process Assessment and Plan (1) Dysphagia Status: Acute Category: Medical Code(s): R13.10 - Dysphagia, unspecified (2) Esophageal diverticulum Status: Acute Category: Medical Code(s): Q39.6 - Congenital diverticulum of esophagus
--- NOTE | 2021-05-20 07:36 | HMH.PHAINT ---
home medication list verified using home medication list from outpatient pharmacy
--- NOTE | 2021-05-20 07:48 | HMH.SCOPE ---
- Procedure: Date: 05/20/21 Patient Date of :: 1935 Procedure Performed:: Percutaneous endoscopic gastrostomy tube Indications:: Dysphagia Esophageal diverticulum Performing Provider:: Devon Hayes MD Referring Provider:: Dr. Sr Sedation:: Monitored anesthesia care Procedure:: After informed consent was obtained the patient was taken to the endoscopy suite. He was placed in the supine position. Monitored anesthesia care ensued. The gastroscope was advanced. The stomach was insufflated. Impulse and transillumination were easily seen in the mid upper abdomen. The upper abdomen was prepped and draped in a sterile fashion. After infiltration local anesthetic a small transverse incision was made at the site of maximal impulse/transillumination. The guidewire was maneuvered in a retrograde fashion via snare. The guidewire was connected to the gastrostomy tube and pulled in an antegrade fashion. The tube was secured at 1 cm. Dressings were applied. The gastroscope was readvanced. The bumper was in good position. No bleeding noted. An abdominal binder was placed in position and the patient was transferred to recovery. Findings:: PEG anchored at 1 cm Specimens:: None Recommendations:: Post PEG orders written Complications:: No immediate Estimated blood obtained (mL): 5
--- NOTE | 2021-05-20 08:58 | PC.NURSE ---
spoke to dr campa about diet. stated patient would be fine with clears at this time. did not feel it was necessary to get a speech eval at this time. patient had been eating at home prior to coming in. the peg tube was placed in case he wasn't taking things in and supplement was needed
--- NOTE | 2021-05-20 11:25 | PC.NURSE ---
Called Dr. Martinze office to ask about if pt needs a speech eval, and if we can change his diet to clears with nec thick liquids. Waiting for response.
--- NOTE | 2021-05-20 11:29 | DIET.NUTRFU ---
Addendum entered by Suzanne Stacy RD, LD 05/20/21 16:06: spoke to at bedside about calorie/protein needs vs intake at home. At home she is grinding everything and adding protein powder to couple items like his oatmeal. she did indicate he is coughing at times with liquids, she is not consistently thickening his liquids. RD did suggest to give him thicker items like pudding instead of ice cream or jello. He is drinking about 3 boost at home/day. But not much meat for protein, he eats some yogurt. Talked about blending up the meat to a ground consistency and adding gravy for protein. She does not really want to use the tube but some days he does not eat- refuses to eat. Dr. Barraza recommended PEG to prevent further weight loss. Nursing to teach her and daughter on flush. Plans to crush pills in applesauce. She has a follow-up with Madi early next week. Will review discharge plan with manager critical care unit in morning. Original Note: RD reviewed chart, patient was here in Mar. BEVERAGE MANAGER did barium swallow study and ground, nectar thick was recommended. Spoke to family at bedside and report they are still thickening his coffee at home. Relayed information to nurse, change order to clear/nectar thick liquids. Patient had PEG placed secondary to not meeting nutritional needs, down 12# or 13% in 60days. Significant wt loss. Patient triggers for protein/calorie malnutrition, case mgt notified. His cheeks are sunk in, very pale skin. Family reports he has lost weight, has trouble eating. Will start TF when appropriate at 20ml/hr and advance to best meet nutritional needs of 1100kcal and 40-45gm protein and 1170ml/day. Plan is just to supplement diet with the TF, there goal is to still try to take in nutrition orally. Bolus feeding would be easiest to adjust based on meal intake of the day. Standard formula of Jevity 1.2 would be appropriate to start at 20ml/hr. For bolus feeding at 100% of needs would be 4 cans/day and at 50% would be 2 cans/day. Family would benefit from teaching on TF administration. Will continue to follow POC
--- NOTE | 2021-05-20 11:35 | PC.NURSE ---
Spoke with Dr. BRUNSON on the phone he stated that he doesn't feel that a speech eval is necessary at this time. He was just post sedation and it would not help with the test. He states that its fine to place him on a diet of clears with nect thick liquids at this time.
--- NOTE | 2021-05-20 11:37 | PC.NURSE ---
Called dietary to let them know of the change.
--- NOTE | 2021-05-20 12:14 | PC.NURSE ---
Gave pts thick liquids, and a whole pill. He tolerated it very well.
--- NOTE | 2021-05-20 14:43 | PC.WOUNDNOTE ---
R hip bone stage one Picture is upside down, stage one to coccyx small stage one above the other stage one on coccyx
[2021-05-21 04:36] VITALS: BP 119/63; PULSE 69; RESP 18; TEMP 36.6; O2SAT 97
[2021-05-21 05:03] VITALS: BMI 13.2
--- NOTE | 2021-05-21 07:00 | HMH.PHAVTE ---
[facility] Pharmacy VTE Monitoring - Patient Demographics Admission date: 05/20/21 Report Date: 05/21/21 Time: 07:00 Allergies/Adverse Reactions: Patient Allergies Penicillins Allergy (Unknown, Verified 04/22/21 09:40) Height: 1.75 m Weight: 40.506 kg Patient Problems: Current Active Problems Esophageal diverticulum (Acute) Dysphagia (Acute) - VTE Risk Was VTE Risk Assessment Performed: Yes VTE Score: 3 VTE Risk Level: Low Risk - Prophylaxis VTE Prophylaxis Ordered?: Yes Types of VTE Prophylaxis: IPCS Thigh High Location of Applied Device: Bilateral Lower Extremeties
--- NOTE | 2021-05-21 07:31 | DIET.NUTRFU ---
RD consulted to start TF, new PEG placed yesterday. Patient is currently on clear liquids with nectar thick also. Eats ground food at home. Refer to previous note yesterday for dietary recall. Bolus feeding would be the easiest to adjust based on meal intake. He is malnourished and has skin breakdown, nutritional needs are high to promote healing. Nutritional needs are 1200kcal, 52gm protein and 1200ml/day. For bolus feeding at 100% of needs would be Jevity 1.2 at 4 cans/day and at 50% would be 2 cans/day. Will start at 2 cans/ day today and review with to increase if patient decreases on meal intake. He does drink Gatorade and water at home, will start with minimal flush pre and post TF to provide 200ml/day with 2 cans.
[2021-05-21 08:00] VITALS: BP 107/69; PULSE 73; RESP 16; TEMP 36.8; O2SAT 95
--- NOTE | 2021-05-21 08:25 | HMH.GSPN ---
Subjective Narrative: The patient continues to tolerate some PO intake. No issues (per nursing) with gastrostomy tube. Progress Note: A&P (1) Dysphagia Status: Acute (2) Esophageal diverticulum Status: Acute Assessment and Plan for All Diagnoses:: Overall, doing well status post percutaneous endoscopic gastrostomy tube. Dietary consultation prior to discharge (as requested per primary care provider) Exam Vital signs and Labs for Last 24 Hours: Temp Pulse Resp BP Pulse Ox 98.2 F 73 16 107/69 L 95 05/21/21 08:00 05/21/21 08:00 05/21/21 08:00 05/21/21 08:00 05/21/21 08:00 I & O for Last 24 hours: Intake & Output 05/18/21 05/19/21 05/20/21 05/21/21 11:59 11:59 11:59 11:59 Intake Total 840 / 840 Balance 840 / 840 Weight 86 lb 15.91 oz 89 lb 4.8 oz - Constitutional no acute distress - *Routine Respiratory Exam Absent: respiratory distress - *Routine Cardiovascular Exam Absent: tachycardia - *Routine Abdominal Exam Present: soft Comments: Gastrostomy tube remains at 1 cm. Tube easily rotates. No erythema.
--- NOTE | 2021-05-21 08:28 | HMH.DCSUM ---
General - General Admission date:: 05/20/21 Discharge date: 05/21/21 HPI HPI: This is an 86-year-old gentleman with significant/intermittent dysphagia and a large esophageal diverticulum. He presents for percutaneous endoscopic gastrostomy tube placement. He recently underwent esophagogastroduodenoscopy secondary to esophageal foreign body. Hospital Course Hospital Course: The patient underwent percutaneous endoscopic gastrostomy tube placement. Please see separate report for detail. He convalesced well after the procedure. No sign of procedural complication such as bleeding or infection was noted. On the morning of discharge he was afebrile stable normal vital signs. Dietary consultation as requested per primary care provider ordered prior to discharge. Objective Vital signs: Temp Pulse Resp BP Pulse Ox 98.2 F 73 16 107/69 L 95 05/21/21 08:00 05/21/21 08:00 05/21/21 08:00 05/21/21 08:00 05/21/21 08:00 no acute distress - *Routine HEENT Exam Head: Present: atraumatic Eye: Present: EOMI ENT: Present: mucous membranes moist - *Routine Neck Exam Absent: tenderness - Routine Chest/Breast/Axilla Exam Chest wall: Absent: tenderness - *Routine Respiratory Exam Absent: respiratory distress - *Routine Cardiovascular Exam Absent: tachycardia - *Routine Abdominal Exam Absent: tenderness, distended - *Routine Rectal Exam Patient deferred: visual exam - *Routine Exam Patient deferred: penile exam - *Routine Extremities Exam Absent: edema - Routine Back/Spine/Pelvis Exam Back/Spine: Absent: erythema - *Routine Skin Exam Absent: erythema - *Routine Neurological Exam Present: alert - Routine Psychiatric Exam Absent: normal thought process DS: Diagnosis - Discharge Diagnosis (1) Dysphagia Status: Acute (2) Esophageal diverticulum Status: Acute Discharge Plan - Patient Discharge Instructions ACTIVITY: Continue current activity DIET: other (As per dietary consultation) Patient Instructions: DI for Percutaneous Endoscopic Gastrostomy (PEG), DI for Surgical Site Infection - Follow up Plan Disposition: Home, Self-Care Condition at discharge:: Stable Home Medications: Home Medications Medication Instructions Recorded Confirmed Type Atorvastatin Calcium [Lipitor 20mg 20 mg PO HS 02/28/21 05/20/21 History Tab] Metoprolol Succinate [Metoprolol 25 mg PO DAILY 02/28/21 05/20/21 History Succinate 25mg Tablet*] Omeprazole [Omeprazole 20mg Tab] 20 mg PO DAILY 02/28/21 05/20/21 History aspirin 81 mg tablet,delayed 81 mg PO DAILY 04/14/21 05/20/21 History release Amlodipine Besylate [Norvasc 2.5mg 2.5 mg PO DAILY 05/20/21 05/20/21 History tablet] Levothyroxine Sodium [Synthroid 50 mcg PO DAILYDM 05/20/21 05/20/21 History 50mcg (0.05mg) tab] Potassium Chloride [Klor-con 20 20 meq PO DAILY 05/20/21 05/20/21 History mEq tablet] Sertraline HCl [Zoloft] 25 mg PO DAILY 05/20/21 05/20/21 History Prescriptions/Medication Reconciliation: Continued aspirin 81 mg tablet,delayed release 81 mg PO DAILY Metoprolol Succinate [Metoprolol Succinate 25mg Tablet*] 25 mg PO DAILY Atorvastatin Calcium [Lipitor 20mg Tab] 20 mg PO HS Omeprazole [Omeprazole 20mg Tab] 20 mg PO DAILY Levothyroxine Sodium [Synthroid 50mcg (0.05mg) tab] 50 mcg PO DAILYDM Amlodipine Besylate [Norvasc 2.5mg tablet] 2.5 mg PO DAILY Potassium Chloride [Klor-con 20 mEq tablet] 20 meq PO DAILY Sertraline HCl [Zoloft] 25 mg PO DAILY - Problem Reconciliation Problems Reviewed?: Yes
--- NOTE | 2021-05-21 09:06 | HMH.PHAINT ---
Spoke with the patient today about his medication list. There were no new medications being started. Reviewed the medications he was to continue on at home. Told the patient that if he had any questions before he left, to let a nurse know and a pharmacist would come and review the medications again with him. When we spoke, there were no questions or concerns at that time. Patient was provided a copy of the medication list.
--- NOTE | 2021-05-21 09:30 | PC.NURSE ---
Called to come to see how to use tube feed. Waiting for her to arrive.
--- NOTE | 2021-05-21 10:23 | SW/DCPLANNER ---
Addendum entered by Danni Graham 05/21/21 15:38: Paula berry/ [facility] confirmed that tube feedings will be delivered to patient's home this evening. Addendum entered by Danni Graham 05/21/21 12:37: Family is now agreeable with tubefeedings being ordered. Patient information/order has been faxed to [facility]. Original Note: Mago Coughlin (Diesel Pile Driver Operator) followed up with this patient and his this AM regarding discharge plans. stated that they are not interested in started tubefeedings at home at this time. Patient is currently established with [facility] and I will fax information to resume home health services. Patient will discharge home today.
--- NOTE | 2021-05-21 11:00 | PC.NURSE ---
Showed pt's how to use PEG tube bolus. I sent home supplies to help pt get through till pt is able to get home health involved.
--- NOTE | 2021-05-21 12:05 | DIET.NUTRFU ---
Patient and had refused teaching and wanted to discharge without any TF information. Dr. Barraza came over to room explained how important starting the TF is. Patient has already lost weight and BMI is 13, he is malnourished. agreed and nursing was able to provide teaching on the flush/formula and residual check. This RD provided some thick-it for his beverages and called [facility] who verified they have some powder on hand. was unable to purchase at [facility] yesterday they were out of stock. [employer]ser[employer] professional healthcare representative will work to get home health and TF supplies at home. Patient has a follow-up with Dr. Barraza early next week.
--- NOTE | 2021-05-22 15:12 | CARE MANAGER ---
CM called and spoke to Mrs. Singh regarding patient's post discharge status. She states that he is doing a little better and they received everything they needed for his tube feedings. nurse was able to go out to the home last evening and teach the . No known needs at this time.
== END 2021-05-21 11:15 | disposition home or self-care (01) ==
LOC: 2ND 06:37
PROVIDERS: Admitting Provider Surgery; PCP Family Medicine; Visit Provider Surgery
PROC: 0DH63UZ Insertion of Feeding Device into Stomach, Percutaneous Approach (ICD-10-PCS; CPT 43246; principal; 2021-05-20 07:30)
DX: R13.10 Dysphagia, unspecified (principal); I25.10 Atherosclerotic heart disease of native coronary artery without angina pectoris; K21.9 Gastro-esophageal reflux disease without esophagitis; I10 Essential (primary) hypertension; Z95.0 Presence of cardiac pacemaker; E87.5 Hyperkalemia; E03.9 Hypothyroidism, unspecified; Z79.890 Hormone replacement therapy; Z79.899 Other long term (current) drug therapy; K22.5 Diverticulum of esophagus, acquired
CPT/HCPCS: 43246; G0378

== ENCOUNTER 2021-07-16 10:52 | Emergency (ER) | payer MEDICARE, SELFPAY ==
[2021-07-16] VITALS (11 sets, daily range): BP systolic 123–158; BP diastolic 76–109; PULSE 72–98; RESP 16–28; TEMP 36.4–36.6; O2SAT 92–99; BMI 14.7
--- NOTE | 2021-07-16 10:54 | PC.NURSE ---
pt moved to ED stretcher from wheelchair with assistance from daughter. No complications. pt hooked to monitor, warm blanket given.
--- NOTE | 2021-07-16 10:59 | ECG_ITS ---
APPROVED REPORT Exam: Resting ECG HR:82 bpm ECG Measurements Heart Rate 82 AXES HI 203 P 74 QRSd 132 QRS -67 QT 401 T 85 QTc 440 Conclusion SINUS RHYTHM WITH FREQUENT SUPRAVENTRICULAR PREMATURE COMPLEXES RIGHT BUNDLE BRANCH BLOCK [120+ ms QRS DURATION, UPRIGHT V1, 40+ ms S IN I/aVL/V4/V5/V6] LEFT ANTERIOR FASCICULAR BLOCK [QRS AXIS <= -45, QR IN I, RS IN II] LEFT VENTRICULAR HYPERTROPHY AND ST-T CHANGE [VOLTAGE CRITERIA PLUS ST/T ABNORMALITY] POSSIBLE ANTEROSEPTAL MYOCARDIAL INFARCTION , OF INDETERMINATE AGE [30 ms Q WAVE IN V1-V4] ABNORMAL ECG UNCONFIRMED REPORT Electronically signed by : Booker Santiago MD 07/16/2021 21:17:10
--- NOTE | 2021-07-16 11:02 | PC.NURSE ---
Cassandra RN, at BS; family at BS
--- NOTE | 2021-07-16 11:05 | PC.NURSE ---
Dr. Finley at BS
--- NOTE | 2021-07-16 11:15 | XR_ITS ---
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 Cardiomegaly is noted. There has been prior median sternotomy. There is worsening bibasilar atelectasis or pneumonia. There are small pleural effusions. There is no pneumothorax. The bony thorax is intact. IMPRESSION: Worsening bibasilar atelectasis or pneumonia with small pleural effusions. Reviewed, Interpreted and Dictated by Amanuel Adler III, MD Transcribed by Rick Pierson Authenticated and . [facility]
--- NOTE | 2021-07-16 11:15 | HMH.EDGENADL ---
ED Disposition Clinical Impression: Pneumonia, Pleural effusion Disposition: Home, Self-Care Condition on Discharge: Fair Instructions: DI for Shortness of Breath, Pneumonia-Adult Prescriptions: levoFLOXacin [Levofloxacin 750MG Tablet*] 750 mg PO DAILY #5 tab Transmission Status: Pending to [facility] Referrals: Jose Sr MD [Primary Care Provider] - - Critical Care Critical Care Time: No Attestation: On 07/16/21, the high probability of a clinically significant, sudden or life threatening deterioration of the following system(s) required my full and direct attention, intervention and personal management. The time I documented below is in addition to time spent performing reported procedures but includes the following listed in this critical care notation. Medical Decision Making - [place] Inquiry Pt receiving controlled substance: No Vital Signs: 07/16/21 10:53 07/16/21 11:30 07/16/21 12:01 Temperature 97.5 F L Temperature Source Oral Pulse Rate 98 H 78 Pulse Rate [Right Radial] 98 H Respiratory Rate 28 H Blood Pressure 147/80 H 132/80 Blood Pressure [Right Arm] 158/109 H Blood Pressure Mean 117 110 Blood Pressure Mean [Right Arm] 125 Blood Pressure Source [Right Arm] Automatic Cuff Blood Pressure Position [Right Arm] Sitting 02 Sat by Pulse Oximetry 92 L 94 L 98 Oxygen Delivery Method Room Air Nasal Cannula Oxygen Flow Rate (LPM) 1 07/16/21 12:15 07/16/21 12:58 07/16/21 13:00 Temperature Temperature Source Pulse Rate 78 74 72 Pulse Rate [Right Radial] Respiratory Rate Blood Pressure 135/78 142/80 H Blood Pressure [Right Arm] Blood Pressure Mean 97 88 Blood Pressure Mean [Right Arm] Blood Pressure Source [Right Arm] Blood Pressure Position [Right Arm] 02 Sat by Pulse Oximetry 97 98 99 Oxygen Delivery Method Room Air Oxygen Flow Rate (LPM) 07/16/21 13:30 07/16/21 14:00 07/16/21 14:30 Temperature Temperature Source Pulse Rate 78 79 82 Pulse Rate [Right Radial] Respiratory Rate Blood Pressure 141/84 H 154/88 H 141/79 H Blood Pressure [Right Arm] Blood Pressure Mean 103 96 99 Blood Pressure Mean [Right Arm] Blood Pressure Source [Right Arm] Blood Pressure Position [Right Arm] 02 Sat by Pulse Oximetry 99 99 98 Oxygen Delivery Method Oxygen Flow Rate (LPM) - Lab Data Lab Results 07/16/21 11:25: WBC 13.2 H, RBC 3.81 L, Hgb 11.6 L, Hct 37.2 L, MCV 97.6 H, MCH 30.5, MCHC 31.3 L, RDW 14.2, Plt Count 425 H, MPV 8.2, Neut % (Auto) 87.3 H, Lymph % (Auto) 8.3 L, Tama % (Auto) 4.1, Eos % (Auto) 0.2, Baso % (Auto) 0.1, Neut # (Auto) 11.6 H, Lymph # (Auto) 1.1, Tama # (Auto) 0.6, Eos # (Auto) 0.0, Baso # (Auto) 0.0, Total Counted 100, Neutrophils % (Manual) 89 H, Lymphocytes % (Manual) 10, Monocytes % (Manual) 1 L, Platelet Estimate Normal, [place] Cells 1+ 07/16/21 11:25: D-Dimer 2.11 H 07/16/21 11:25: Sodium 134 L, Potassium 4.0, Chloride 97 L, Carbon Dioxide 31 H, Anion Gap 10.0, BUN 21 H, Creatinine 0.60 L, Estimated Creat Clear 34, Estimated GFR 128, Est GFR ( Amer) 155, Glucose 127 H, Calcium 8.7, Total Bilirubin 0.3, AST 35, ALT 19, Alkaline Phosphatase 122, Troponin I 0.01, Total Protein 6.9 D, Albumin 2.7 L, Globulin 4.2 H, Albumin/Globulin Ratio 0.6 L 07/16/21 11:25: NT-Pro-B Natriuret Pep 41246 H 07/16/21 12:05: SARS-CoV-2 (PCR) Not detected, Influenza A Untype (PCR) Not detected, Influenza Type B (PCR) Not detected 07/16/21 14:10: Troponin I 0.02 Result diagrams: 07/16/21 11:25 07/16/21 11:25 Orders (Tests/Meds): ED MEDICATIONS Generic Name Dose Route Start Last Admin Trade Name Freq PRN Reason Stop Dose Admin Sodium Chloride 10 ml 07/16/21 11:21 Sodium Chloride 0.9% 10ml Flush Syringe IV 08/15/21 11:20 NEEDED PRN Maintain IV Site Discontinued Medications Generic Name Dose Route Start Last Admin Trade Name Freq PRN Reason Stop Dose Admin Aceta
[2021-07-16 11:44] LABS: Basophils % 0.1 % (0.1-2.0); Eosinophils % 0.2 % (0.1-12.0); Hematocrit 37.2 % (42.0-52.0); Hemoglobin 11.6 g/dL (14.1-18.0); Lymphocytes # 1.1 K/mm3 (0.7-4.5); Lymphocytes % 8.3 % (10-50); Mean Corpuscular HGB Conc 31.3 g/dL (31.8-35.4); Mean Corpuscular Hemoglobin 30.5 pg (27.0-31.2); Mean Corpuscular Volume 97.6 fl (80-94); Mean Platelet Volume 8.2 fl (7.4-10.4); Monocytes # 0.6 K/mm3 (0.1-1.0); Monocytes % 4.1 % (1.7-9.3); Neutrophils # 11.6 K/mm3 (1.8-7.8); Neutrophils % 87.3 % (37.0-80.0); Platelet Count 425 K/mm3 (142-424); Red Blood Count 3.81 M/mm3 (4.60-6.20); Red Cell Distribution Width 14.2 % (11.5-17.5); White Blood Count 13.2 K/mm3 (4.8-10.8)
[2021-07-16 11:51] LABS: Alanine Aminotransferase 19 U/L (12-78); Albumin Level 2.7 g/dl (3.5-5.0); Albumin/Globulin Ratio 0.6 (1.1-1.8); Alkaline Phosphatase 122 U/L (38-126); Aspartate Amino Transferase 35 U/L (17-59); Bilirubin,Total 0.3 mg/dl (0.2-1.3); Blood Urea Nitrogen 21 mg/dl (9-20); Calcium 8.7 mg/dl (8.4-10.2); Carbon Dioxide 31 mmol/L (22.0-30.0); Chloride 97 mmol/L (98-107); Creatinine Clearance Estimated 34 mL/min (50-200); Estimated Glomerular Filt Rate 128 ml/min (>60); GFR (African American) 155 ML/MIN (>60); Globulin 4.2 g/dL (1.3-3.2); Glucose 127 mg/dl (74-100); Sodium 134 mmol/L (136-145); Total Protein,Serum 6.9 g/dl (6.3-8.2)
[2021-07-16 11:52] LABS: MANUAL DIFFERENTIAL MANUAL DIFFERENTIAL (MANUAL DIFF)
--- NOTE | 2021-07-16 11:53 | PC.NURSE ---
SaO2 86% on RA, encouraged pt to cough, that did not improve Saturation. Pt placed on O2 at 2L Per NC QoS588% on 2L at this time notified ER MD will continue to monitor
[2021-07-16 11:56] LABS: D-Dimer 2.11 ug/mL (0.0-0.5)
--- NOTE | 2021-07-16 11:56 | PC.NURSE ---
DR. Finley at speaking with patient and family regarding POC and update on what labs & reads have came back
[2021-07-16 12:02] LABS: NT Pro Brain Natriuretic Pep. 11100 pg/mL (0-450)
--- NOTE | 2021-07-16 12:04 | PC.NURSE ---
decreased O2 to 1L per NC per ER MD
[2021-07-16 12:05] LABS: Troponin I 0.01 ng/ml (0.00-0.034)
[2021-07-16 12:10] LABS: Coronavirus 19, PCR Not Detected (NotDetected); Influenza A, PCR Not Detected (NotDetected); Influenza B, PCR Not Detected (NotDetected)
--- NOTE | 2021-07-16 12:11 | CT_ITS ---
FINAL REPORT TECHNIQUE: Then section axial CT images of the chest were obtained with contrast. Three-D reformatted images were also obtained.This study was performed with techniques to keep radiation doses as low as reasonably achievable (ALARA). Individualized dose reduction techniques using automated exposure control or adjustment of mA and/or kV according to the patient''s size were employed. CLINICAL HISTORY: chest pain, dyspnea, elevated dimer FINDINGS: Significant motion artifact obscures the smaller pulmonary artery branches. There is no evidence of pulmonary embolism. There is no evidence of thoracic aortic aneurysm or dissection. There is no evidence of mediastinal or hilar mass or adenopathy. The heart is enlarged. The mid thoracic esophagus is distended and food filled of uncertain significance with wall thickening. There is mild scarring in the lungs. There is bilateral lower lobe atelectasis. There is bilateral lower lobe bronchiectasis. There is mucous plugging on the left. There are moderate right and small left pleural effusions. There is no evidence of pulmonary mass or suspicious nodule. Limited images of the upper abdomen demonstrate a gastrostomy tube. There is a small amount of ascites and mild anasarca. IMPRESSION: 1. No pulmonary embolism identified. 2. Food filled and distended midthoracic esophagus with wall thickening could represent stricture or neoplasm. This could be further evaluated with upper endoscopy. 3. Moderate right and small left pleural effusions with bilateral lower lobe atelectasis and bronchiectasis. 4. Mucous plugging on the left. Reviewed, Interpreted and Dictated by Amanuel Adler III, MD Transcribed by Rick Pierson Authenticated and . [facility]
[2021-07-16 12:12] LABS: Lymphocytes % 10 % (10-50); Monocytes % 1 % (2-9); Neutrophils % 89 % (42-76); Total Cells Counted 100
[2021-07-16 12:13] LABS: Burr Cells 1+; Platelet Estimate Normal
--- NOTE | 2021-07-16 12:13 | PC.NURSE ---
Dr. Finley at speaking with family and patient regarding update on lab results
--- NOTE | 2021-07-16 12:14 | PC.NURSE ---
notified rad of CT scan order, PE protocol
--- NOTE | 2021-07-16 12:18 | PC.NURSE ---
Dr. Finley turned oxygen off from 1 liter; he is doing well at this time on room air while resting, sating at 95%
--- NOTE | 2021-07-16 12:27 | PC.NURSE ---
pt going over to CT with guitar technician by ángel.
--- NOTE | 2021-07-16 13:34 | PC.NURSE ---
checked on pt at this time, pt sleeping at this time, daughter at BS. Will continue to monitor.
--- NOTE | 2021-07-16 14:15 | PC.NURSE ---
pt given another warm blanket; family at BS
--- NOTE | 2021-07-16 14:23 | PC.NURSE ---
called radiology to check the status of CTA
--- NOTE | 2021-07-16 14:24 | PC.NURSE ---
Dr. Finley at speaking with patient and family for update on POC
[2021-07-16 14:39] LABS: Troponin I 0.02 ng/ml (0.00-0.034)
--- NOTE | 2021-07-16 14:53 | PC.NURSE ---
Dr. Finley at speaking to patient and family regarding discharge plan
--- NOTE | 2021-07-16 15:13 | PC.NURSE ---
checked on pt at this time, pt is awake, resting in bed. Pt states no needs, offered warm blanket, pt declined. Pt daughter at BS states no needs as well. Will continue to monitor.
== END 2021-07-16 15:45 | disposition home or self-care (01) ==
PROVIDERS: Emergency Provider Student in an Organized Health Care Education/Training Program; PCP Family Medicine
DX: R06.02 Shortness of breath (principal); R07.9 Chest pain, unspecified; R22.0 Localized swelling, mass and lump, head; Z20.822 Contact with and (suspected) exposure to COVID-19; I10 Essential (primary) hypertension; I25.10 Atherosclerotic heart disease of native coronary artery without angina pectoris; I49.9 Cardiac arrhythmia, unspecified; I49.5 Sick sinus syndrome; E78.5 Hyperlipidemia, unspecified; E03.9 Hypothyroidism, unspecified; K21.9 Gastro-esophageal reflux disease without esophagitis; K22.5 Diverticulum of esophagus, acquired; H91.90 Unspecified hearing loss, unspecified ear; Z79.82 Long term (current) use of aspirin; Z79.899 Other long term (current) drug therapy; Z88.0 Allergy status to penicillin; Z95.0 Presence of cardiac pacemaker; Z95.5 Presence of coronary angioplasty implant and graft; Z93.1 Gastrostomy status; Z82.49 Family history of ischemic heart disease and other diseases of the circulatory system; Z80.9 Family history of malignant neoplasm, unspecified
CPT/HCPCS: 71045; 71275; 80053; 83880; 84484; 85007; 85025; 85378; 93005; 99285; C9803; Q9967; U0003; U0005

== ENCOUNTER → 2021-07-25 10:32 | Outpatient (CLI) | payer MEDICARE, SELFPAY ==
--- NOTE | 2021-07-25 10:39 | XR_ITS ---
PROCEDURE INFORMATION: Exam: XR Chest Exam date and time: 07/25/2021 10:41 AM Age: 86 years old Clinical indication: Prior surgery; Surgery date: 1-6 months; Surgery type: Pacemaker and feeding tube placed 3 months ago. Patient HX: PT came into the er suffering with pneumonia last . PT was very weak and could barely stand for cxr. TECHNIQUE: Imaging protocol: Radiologic exam of the chest. Views: 2 views. COMPARISON: 1. CR XR CHEST PORTABLE 07/16/2021 11:36 AM , 03/04/2021 9:22 a.m. 2. 03/04/2021 FINDINGS: Tubes, catheters and devices: Delete pacemaker device again demonstrated. Lungs: Increase in the lung volumes is demonstrated. Significant improvement in the degree of aeration of both lungs. Resolution of previously demonstrated right basilar infiltrates. Regions of bronchiectasis with residual interstitial infiltrates demonstrated in the left lower lobe. Underlying chronic regions of bibasilar interstitial scarring demonstrated. Pleural spaces: Small bilateral pleural effusions. Heart/Mediastinum: Unremarkable. No cardiomegaly. Diaphragm: There is flattening of the hemidiaphragms. Bones/joints: Unremarkable. Other findings: Hyperlucent changes are demonstrated. IMPRESSION: 1. Near complete resolution of previously demonstrated bibasilar interstitial infiltrates. Persistent small residual pleural effusions. 2. Chronic obstructive pulmonary disease.
== END ==
PROVIDERS: PCP Family Medicine; Visit Provider Nurse Practitioner Family
DX: J18.9 Pneumonia, unspecified organism (principal)
CPT/HCPCS: 71046

== ENCOUNTER 2022-04-19 00:36 | Emergency (ER) | payer MEDICARE, SELFPAY ==
[2022-04-19 00:54] VITALS: BP 141/78; PULSE 85; RESP 18; TEMP 36.9; O2SAT 98; BMI 14.1
[2022-04-19 01:00] VITALS: BP 125/73; PULSE 97; O2SAT 96
--- NOTE | 2022-04-19 01:11 | XR_ITS ---
PROCEDURE INFORMATION: Exam: XR Chest Exam date and time: 04/19/2022 1:45 AM Age: 87 years old Clinical indication: Injury or trauma; Fall TECHNIQUE: Imaging protocol: Radiologic exam of the chest. Views: 1 view. COMPARISON: CR XR CHEST 2V 07/25/2021 10:41 AM FINDINGS: Tubes, catheters and devices: Left chest pacemaker is stable. Lungs: Bilateral perihilar interstitial infiltrates are present. Pleural spaces: Unremarkable. No pleural effusion. No pneumothorax. Heart/Mediastinum: Heart size is stable. Bones/joints: Sternotomy changes are stable. IMPRESSION: Bilateral perihilar interstitial infiltrates are present. Correlate for pulmonary vascular congestion versus pneumonia.
--- NOTE | 2022-04-19 01:11 | CT_ITS ---
PROCEDURE INFORMATION: Exam: CT Head Without Contrast Exam date and time: 04/19/2022 12:26 AM Age: 87 years old Clinical indication: Injury or trauma; Fall TECHNIQUE: Imaging protocol: Computed tomography of the head without contrast. Radiation optimization: All CT scans at this facility use at least one of these dose optimization techniques: automated exposure control; mA and/or kV adjustment per patient size (includes targeted exams where dose is matched to clinical indication); or iterative reconstruction. REPORTING DATA: Count of CT and Cardiac NM exams in prior 12 months: This patient has received 2 known CTs and 0 known cardiac nuclear medicine studies in the 12 months prior to the current study. COMPARISON: CT HEAD/BRAIN WO CON 02/28/2021 6:56 PM FINDINGS: Brain: Study is degraded by motion. 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 No acute infarct. No hemorrhage. Stable involutional changes of the brain. No mass effect. Cerebral ventricles: Stable ventricular size. No ventriculomegaly. Paranasal sinuses: Visualized sinuses are unremarkable. No fluid levels. Mastoid air cells: Visualized mastoid air cells are well aerated. Bones/joints: Unremarkable. No acute fracture. Soft tissues: Unremarkable. IMPRESSION: 1. No acute intracranial abnormality. 2. Motion degraded study.
--- NOTE | 2022-04-19 01:11 | CT_ITS ---
PROCEDURE INFORMATION: Exam: CT Cervical Spine Without Contrast Exam date and time: 04/19/2022 12:29 AM Age: 87 years old Clinical indication: Injury or trauma; Fall TECHNIQUE: Imaging protocol: Computed tomography of the cervical spine without contrast. Radiation optimization: All CT scans at this facility use at least one of these dose optimization techniques: automated exposure control; mA and/or kV adjustment per patient size (includes targeted exams where dose is matched to clinical indication); or iterative reconstruction. REPORTING DATA: Count of CT and Cardiac NM exams in prior 12 months: This patient has received 2 known CTs and 0 known cardiac nuclear medicine studies in the 12 months prior to the current study. COMPARISON: CT HEAD/BRAIN WO CON 04/19/2022 12:26 AM FINDINGS: Bones/joints: No definite acute displaced cervical spinal fracture seen on this limited study. Multilevel degenerative changes are seen. The spinal alignment appears near anatomic. Lungs: Lung apices are normal. Soft tissues: Unremarkable. Other findings: This study is degraded by motion. IMPRESSION: 1. Motion degraded study. 2. No definite cervical spinal fracture is identified on this limited exam.
--- NOTE | 2022-04-19 01:11 | XR_ITS ---
PROCEDURE INFORMATION: Exam: XR Pelvis Exam date and time: 04/19/2022 1:45 AM Age: 87 years old Clinical indication: Injury or trauma; Fall TECHNIQUE: Imaging protocol: Radiologic exam of the pelvis. Views: 1 or 2 view. COMPARISON: CR XR KUB 09/08/2020 2:27 PM FINDINGS: Bones/joints: Right hip ORIF changes are again present with marked arthritis bilaterally in the hips. There is deformity of the right pubic rami which appears to be new. Patient is rotated. Soft tissues: Unremarkable. IMPRESSION: Newly visible right pubic rami deformity suspicious for possible fracture. Recommend CT follow-up.
--- NOTE | 2022-04-19 01:19 | PC.NURSE ---
patient gone to CT at this time.
--- NOTE | 2022-04-19 01:37 | PC.NURSE ---
patient back in room at this time.
--- NOTE | 2022-04-19 01:39 | XR_ITS ---
PROCEDURE INFORMATION: Exam: XR Abdomen Exam date and time: 04/19/2022 2:06 AM Age: 87 years old Clinical indication: Device placement; Gi device; Other: Gtube; Additional info: G tube placement TECHNIQUE: Imaging protocol: Radiologic exam of the abdomen. Views: Frontal supine view of the abdomen. 1 View. COMPARISON: CR XR KUB 09/08/2020 2:27 PM FINDINGS: Tubes, catheters and devices: There is a G-tube present with its tip in the stomach.. There appears to be contrast injected which is seen in intraluminal in the stomach and proximal duodenum. Lungs: Assessment of the lung bases is limited due to over exposure. Gastrointestinal tract: There is nonspecific air distention of large and small bowel loops without high-grade obstruction seen. Bones/joints: Unremarkable. IMPRESSION: G-tube tube present with its tip in the stomach.
[2022-04-19 01:40] VITALS: BP 132/79; PULSE 97; O2SAT 94
--- NOTE | 2022-04-19 01:40 | PC.NURSE ---
placed pt on room air, he is maintaining his oxygen of 95-97%. Denies any SOA or ABD pain at this time.
--- NOTE | 2022-04-19 01:41 | PC.NURSE ---
in room talkng to patient at this time.
--- NOTE | 2022-04-19 01:47 | HMH.EDFALL ---
Discharge Plan Disposition Patient Disposition: Home, Self-Care Prescriptions Prescriptions: No Action aspirin [Marylou Low Dose Aspirin] 81 mg tablet,delayed release (DR/EC) 81 mg PO DAILY atorvastatin 20 MG tablet 20 mg PO HS metoprolol succinate 25 MG tablet extended release 24 hr 25 mg PO DAILY levothyroxine 50 MCG tablet 50 mcg PO DAILYDM amlodipine 2.5 MG tablet 2.5 mg PO DAILY potassium chloride 20 MEQ tablet 20 meq PO DAILY sertraline 25 MG tablet 25 mg PO DAILY Referrals Follow up/Referrals: Jose Sr MD [Primary Care Provider] - See instructions Clinical Impressions Clinical Impression: Gastrojejunostomy tube dislodgement, Closed fracture of single pubic ramus of pelvis Instructions Patient Instructions: How to Prevent Falls Discharge ED Provider: Lyric (ED)Tayo Fall HPI General Chief Complaint: Fall Stated Complaint: Feeding tube has come out Time Seen by Provider: 04/19/22 01:10 Mode of Arrival: Wheelchair Source of Information: Patient, Relative and Medical Record Limitations: Physical Limitations Description of Symptoms (Recalled from ER Triage Doc. by RN): Pt's feeding tube was accidently pulled out by caregiver when ajusting his bedcovering. States pt had it placed about 1 yr ago. Caregiver also states that he took a fall tonight in the home and complaining of Left hip pain, no LOC suspected. Pt takes daily ASA, no blood thinners History of Present Illness HPI Narrative: feeding tube pulled out - had been in about 1 yr - also pt with fall and some hip pain complaint: fall Onset (ago): hour(s) Fall from: out of bed Fall witnessed: yes, by family Place fall occurred: home Loss of consciousness: none Prolonged down time: no Symptoms prior to fall: none Location of injury - extremities: Left: thigh Severity: moderate Related Data Home Medications Medication Instructions Recorded Confirmed atorvastatin 20 mg tablet 20 mg PO HS Cholesterol 02/28/21 04/19/22 metoprolol succinate 25 mg 25 mg PO DAILY High blood pressure 02/28/21 04/19/22 tablet,extended release 24 hr aspirin 81 mg tablet,delayed 81 mg PO DAILY heart health 04/14/21 04/19/22 release (Marylou Low Dose Aspirin) amlodipine 2.5 mg tablet 2.5 mg PO DAILY High blood pressure 05/20/21 04/19/22 levothyroxine 50 mcg tablet 50 mcg PO DAILYDM thyroid 05/20/21 04/19/22 potassium chloride 20 mEq 20 meq PO DAILY potassium 05/20/21 04/19/22 tablet,extended release(part/cryst) replacement sertraline 25 mg tablet 25 mg PO DAILY Depression 05/20/21 04/19/22 Allergies Allergy/AdvReac Type Severity Reaction Status Date / Time Penicillins Allergy Unknown Verified 07/29/21 14:19 [facility] Disclaimer: The information contained in this section may have been updated after the patient was seen, as this information can be updated by other users. Medical History (Updated 04/19/22 @ 03:11 by Tayo Gunter (KATRINA)MD) Abnormal electrocardiography Cardiomyopathy Social History Smoking Status: Never smoker alcohol intake: never substance use type: denies use current occupational status: retired Travel in the last 8 weeks: None household members: spouse housing: house caffeine: Yes ROS Obtained: Yes All systems reviewed & no additional complaints except as documented Physical Exam General General appearance: in no apparent distress and cachectic Head Head exam: normocephalic Eye Eye exam: Present PERRL and EOMI; Absent scleral icterus ENT ENT exam: Present mucous membranes dry Neck Neck exam: Present trachea midline Respiratory Respiratory exam: Present normal lung sounds bilaterally; Absent respiratory distress Cardiovascular Cardiovascular exam: Present regular rate and systolic murmur Abdominal Exam Abdominal exam: Present soft and other (g tube site ) Extremities Exam Extremities exam: Absent joint swelling Neurological Exam Neurolog
--- NOTE | 2022-04-19 02:00 | PC.NURSE ---
Dr. Gunter placed 18 fr kangaroo g-tube to pt's PEG site successfully. Small amount of blood noted from site. Telfa pad placed tin-between skin & g-tube securement device.
[2022-04-19 02:29] LABS: Basophils # 0.1 K/mm3 (0-0.2); Basophils % 0.3 % (0.1-2.0); Chloride 97 mmol/L (98-107); Eosinophils % 0.2 % (0.1-12.0); Hematocrit 33.5 % (42.0-52.0); Hemoglobin 10.4 g/dL (14.1-18.0); Lymphocytes # 1.2 K/mm3 (0.7-4.5); Lymphocytes % 7.8 % (10-50); Mean Corpuscular HGB Conc 31.1 g/dL (31.8-35.4); Mean Corpuscular Hemoglobin 25.5 pg (27.0-31.2); Mean Corpuscular Volume 81.9 fl (80-94); Mean Platelet Volume 7.6 fl (7.4-10.4); Monocytes # 0.5 K/mm3 (0.1-1.0); Neutrophils # 13.7 K/mm3 (1.8-7.8); Neutrophils % 88.6 % (37.0-80.0); Platelet Count 509 K/mm3 (142-424); Potassium 5.2 mmoL/L (3.5-5.1); Red Blood Count 4.09 M/mm3 (4.60-6.20); Red Cell Distribution Width 16.5 % (11.5-17.5); Sodium 133 mmol/L (136-145); White Blood Count 15.4 K/mm3 (4.8-10.8)
[2022-04-19 02:31] LABS: MANUAL DIFFERENTIAL MANUAL DIFFERENTIAL (MANUAL DIFF)
[2022-04-19 02:32] LABS: Alanine Aminotransferase 26 U/L (12-78); Albumin Level 3.1 g/dl (3.5-5.0); Albumin/Globulin Ratio 0.7 (1.1-1.8); Alkaline Phosphatase 117 U/L (38-126); Anion Gap 13.2 mEq/L (5-15); Aspartate Amino Transferase 38 U/L (17-59); Bilirubin,Total 0.2 mg/dl (0.2-1.3); Blood Urea Nitrogen 47 mg/dl (9-20); Carbon Dioxide 28 mmol/L (22.0-30.0); Creatinine Clearance Estimated 28 mL/min (50-200); Estimated Glomerular Filt Rate 63 ml/min (>60); GFR (African American) 77 ML/MIN (>60); Globulin 4.3 g/dL (1.3-3.2); Total Protein,Serum 7.4 g/dl (6.3-8.2)
[2022-04-19 02:33] LABS: Calcium 8.5 mg/dl (8.4-10.2); Glucose 125 mg/dl (74-100)
[2022-04-19 02:43] LABS: Lymphocytes % 11 % (10-50); Neutrophils % 89 % (42-76); Total Cells Counted 100
[2022-04-19 02:44] LABS: Hypochromasia 2+; Ovalocytes 1+; Platelet Estimate Slight Increase
[2022-04-19 02:50] LABS: T4 (Thyroxine) 5.7 ug/dl (5.53-11.0)
[2022-04-19 03:03] LABS: Thyroid Stimulating Hormone 9.34 uIU/mL (0.465-4.68)
[2022-04-19 03:05] VITALS: BP 118/68; PULSE 89; RESP 20; TEMP 37; O2SAT 98
--- NOTE | 2022-04-19 03:11 | PC.NURSE ---
Dr. Gunter at bedside reviewing with pt & family to hold potassium medication for a few days and follow up with Dr. Sr's office regarding thyroid levels & recheck potassium.
== END 2022-04-19 03:16 | disposition home or self-care (01) ==
PROVIDERS: Emergency Provider Emergency Medicine; PCP Family Medicine
DX: S32.501A Unspecified fracture of right pubis, initial encounter for closed fracture (principal); K94.23 Gastrostomy malfunction; W19.XXXA Unspecified fall, initial encounter; Z86.79 Personal history of other diseases of the circulatory system
CPT/HCPCS: 70450; 71045; 72125; 72170; 74018; 80053; 84436; 84443; 85007; 85025; 99284; 99285

== ENCOUNTER 2022-04-28 06:33 | Inpatient (IN) | payer MEDICARE, SELFPAY ==
[2022-04-28] VITALS (12 sets, daily range): BP systolic 85–103; BP diastolic 40–57; PULSE 69–116; RESP 12–30; TEMP 36.3–38; O2SAT 94–99; BMI 13.6; BMI 16.0
--- NOTE | 2022-04-28 06:52 | ECG_ITS ---
APPROVED REPORT Exam: Resting ECG HR:120 bpm ECG Measurements Heart Rate 120 AXES QRSd 141 QRS -62 QT 335 T 86 QTc 406 Conclusion ATRIAL FIBRILLATION WITH RAPID VENTRICULAR RESPONSE RIGHT BUNDLE BRANCH BLOCK [120+ ms QRS DURATION, UPRIGHT V1, 40+ ms S IN I/aVL/V4/V5/V6] LEFT ANTERIOR FASCICULAR BLOCK [QRS AXIS <= -45, QR IN I, RS IN II] VOLTAGE CRITERIA FOR LVH [MEETS CRITERIA IN ONE OF: R(aVL), S(V1), R(V5), R(V5/V6)+S(V1)] POSSIBLE SEPTAL MYOCARDIAL INFARCTION , OF INDETERMINATE AGE [30 ms Q WAVE IN V1/V2] ABNORMAL ECG UNCONFIRMED REPORT Electronically signed by : Booker Santiago MD 04/30/2022 16:41:16
--- NOTE | 2022-04-28 06:57 | CT_ITS ---
FINAL REPORT TECHNIQUE: Axial images through the abdomen and pelvis were performed without contrast. This study was performed with techniques to keep radiation doses as low as reasonably achievable, (ALARA). Individualized dose reduction techniques using automated exposure control or adjustment of mA and/or kV according to the patient's size were employed. CLINICAL HISTORY: n/v best images possible due to pt condition FINDINGS: ABDOMEN: There is scarring at the lung bases. Note is made of moderate bronchiectasis in the right lower lobe. The liver parenchyma is homogeneous. The heart size is normal. The gallbladder is present. Gastrostomy feeding tube is seen in the stomach. The spleen is normal. No adrenal mass is identified. The aorta is normal in caliber. There is no significant free fluid or adenopathy. There is no nephrolithiasis. There is no hydronephrosis. PELVIS: The appendix is not identified. There is marked gaseous distension of the rectum measuring 9.6 cm in diameter. The urinary bladder is incompletely distended. Streak artifact is seen from orthopedic hardware in the right femur. There is no significant free fluid or adenopathy. IMPRESSION: Moderate bronchiectasis in the right lower lobe. Marked gaseous distension of the rectum. Reviewed, Interpreted and Dictated by Salvador Ferreira MD Transcribed by Li Wylie Authenticated and [facility]
[2022-04-28 07:10] LABS: Coronavirus 19, PCR Not Detected (NotDetected); Influenza A, PCR Not Detected (NotDetected); Influenza B, PCR Not Detected (NotDetected)
--- NOTE | 2022-04-28 07:37 | PC.NURSE ---
PT REPOSITIONED, FAMILY AT BEDSIDE
[2022-04-28 07:52] LABS: Basophils % 0.3 % (0.1-2.0); Eosinophils % 0.2 % (0.1-12.0); Hematocrit 31.6 % (42.0-52.0); Hemoglobin 9.7 g/dL (14.1-18.0); Lymphocytes # 0.8 K/mm3 (0.7-4.5); Lymphocytes % 6.9 % (10-50); Mean Corpuscular HGB Conc 30.7 g/dL (31.8-35.4); Mean Corpuscular Hemoglobin 25.4 pg (27.0-31.2); Mean Corpuscular Volume 82.9 fl (80-94); Mean Platelet Volume 8.7 fl (7.4-10.4); Monocytes # 0.4 K/mm3 (0.1-1.0); Monocytes % 3.9 % (1.7-9.3); Neutrophils # 9.8 K/mm3 (1.8-7.8); Neutrophils % 88.7 % (37.0-80.0); Platelet Count 483 K/mm3 (142-424); Red Blood Count 3.81 M/mm3 (4.60-6.20); Red Cell Distribution Width 16.2 % (11.5-17.5)
[2022-04-28 07:58] LABS: MANUAL DIFFERENTIAL MANUAL DIFFERENTIAL (MANUAL DIFF)
[2022-04-28 08:00] LABS: Alanine Aminotransferase 96 U/L (12-78); Albumin/Globulin Ratio 0.7 (1.1-1.8); Alkaline Phosphatase 118 U/L (38-126); Anion Gap 17.7 mEq/L (5-15); Aspartate Amino Transferase 152 U/L (17-59); Bilirubin,Total 0.4 mg/dl (0.2-1.3); Blood Urea Nitrogen 67 mg/dl (9-20); Calcium 8.4 mg/dl (8.4-10.2); Carbon Dioxide 19 mmol/L (22.0-30.0); Chloride 108 mmol/L (98-107); Creatinine Clearance Estimated 12 mL/min (50-200); Estimated Glomerular Filt Rate 26 ml/min (>60); GFR (African American) 31 ML/MIN (>60); Globulin 4.3 g/dL (1.3-3.2); Glucose 107 mg/dl (74-100); Potassium 5.7 mmoL/L (3.5-5.1); Sodium 139 mmol/L (136-145); Total Protein,Serum 7.3 g/dl (6.3-8.2)
[2022-04-28 08:05] LABS: C-Reactive Protein 96.2 mg/L (0-4)
--- NOTE | 2022-04-28 08:07 | PC.NURSE ---
PRABHJOT MENDIOLA AT BEDSIDE
--- NOTE | 2022-04-28 08:08 | XR_ITS ---
FINAL REPORT CLINICAL HISTORY: soa cough COMPARISON: 04/19/2022 FINDINGS: SINGLE-VIEW CHEST There is mild cardiomegaly. The patient is status post median sternotomy. A pacer is identified. There is coarse interstitial opacity in both lungs, left greater than right which appear chronic. There is no pneumothorax. IMPRESSION: Chronic appearing findings. Reviewed, Interpreted and Dictated by Salvador Ferreira MD Transcribed by Li Wylie Authenticated and [facility]
[2022-04-28 08:09] LABS: Lactic Acid 2.9 mmol/L (0.7-2.1)
[2022-04-28 08:15] LABS: Troponin I 0.04 ng/ml (0.00-0.034)
[2022-04-28 08:19] LABS: Procalcitonin 1.47 ng/mL (0.0-2.0)
[2022-04-28 08:24] LABS: Hypochromasia 1+; Lymphocytes % 10 % (10-50); Monocytes % 6 % (2-9); Neutrophils % 84 % (42-76); Ovalocytes 1+; Platelet Estimate Slight Increase; Total Cells Counted 100
[2022-04-28 08:25] LABS: Anisocytosis 1+
--- NOTE | 2022-04-28 08:33 | PC.NURSE ---
PT RETURNED FROM CT
--- NOTE | 2022-04-28 08:44 | HMH.EDGENADL ---
Discharge Plan Disposition Patient Disposition: Admitted As Inpatient Prescriptions Prescriptions: No Action aspirin [Marylou Low Dose Aspirin] 81 mg tablet,delayed release (DR/EC) 81 mg PO DAILY atorvastatin 20 MG tablet 20 mg PO HS metoprolol succinate 25 MG tablet extended release 24 hr 25 mg PO DAILY levothyroxine 50 MCG tablet 50 mcg PO DAILYDM amlodipine 2.5 MG tablet 2.5 mg PO DAILY potassium chloride 20 MEQ tablet 20 meq PO DAILY sertraline 25 MG tablet 25 mg PO DAILY Referrals Follow up/Referrals: Jose Sr MD [Primary Care Provider] - See instructions Clinical Impressions Clinical Impression: Pneumonia Discharge ED Provider: Lyric (ED)Tayo General Adult HPI General Chief complaint: Weakness Stated complaint: Confused after feeding tube Time Seen by Provider: 04/28/22 08:00 Mode of Arrival: Wheelchair Source of Information: Spouse Limitations: No Limitations Description of Symptoms (Recalled from ER Triage Doc. by RN): pt's reports pt started n/v and weakness that started last niggt History of Present Illness HPI narrative: 87-year-old male with history of CHF pacemaker GJ tube difficulty hearing esophageal diverticulum presents with generalized weakness and cough for 1 day. He had coughing spell last night where he spit up some phlegm. Had episode of nausea and vomiting after this. No fever no chills. He has mild chest pain and abdominal pain as well dull nonradiating. He is a poor historian due to difficulty hearing. Related Data Home Medications Medication Instructions Recorded Confirmed atorvastatin 20 mg tablet 20 mg PO HS Cholesterol 02/28/21 04/19/22 metoprolol succinate 25 mg 25 mg PO DAILY High blood pressure 02/28/21 04/19/22 tablet,extended release 24 hr aspirin 81 mg tablet,delayed 81 mg PO DAILY heart health 04/14/21 04/19/22 release (Marylou Low Dose Aspirin) amlodipine 2.5 mg tablet 2.5 mg PO DAILY High blood pressure 05/20/21 04/19/22 levothyroxine 50 mcg tablet 50 mcg PO DAILYDM thyroid 05/20/21 04/19/22 potassium chloride 20 mEq 20 meq PO DAILY potassium 05/20/21 04/19/22 tablet,extended release(part/cryst) replacement sertraline 25 mg tablet 25 mg PO DAILY Depression 05/20/21 04/19/22 Allergies Allergy/AdvReac Type Severity Reaction Status Date / Time Penicillins Allergy Unknown Verified 07/29/21 14:19 [facility] Disclaimer: The information contained in this section may have been updated after the patient was seen, as this information can be updated by other users. Medical History (Updated 04/28/22 @ 08:48 by Ramesh Holcomb MD) Abnormal electrocardiography Cardiomyopathy Social History Smoking Status: Never smoker alcohol intake: never substance use type: denies use current occupational status: retired Travel in the last 8 weeks: None household members: spouse housing: house caffeine: Yes ROS Obtained: Yes All systems reviewed & no additional complaints except as documented Constitutional Constitutional: Reports fatigue and Denies headache(s) Eyes Eyes: Denies dry eyes ENT Ears, Nose, Mouth, and Throat: Denies headache(s) and Denies neck pain Cardiovascular Cardiovascular: Denies dyspnea Respiratory Respiratory: Denies dyspnea and Denies wheezing Gastrointestinal Gastrointestingal: Reports nausea and vomiting; Denies constipation Genitourinary Male Genitourinary: Denies flank pain Musculoskeletal Musculoskeletal: Denies neck pain Integumentary/Breasts Skin/Breast: Denies pruritus and Denies rash Neurologic Neurologic: Denies headache(s) Endocrine Endocrine: Reports fatigue Hematologic/Lymphatic Henatologic/Lymphatic: Denies easy bleeding Allergic/Immunologic Allergic/Immunologic: Denies wheezing Physical Exam General General appearance: alert and in no apparent distress Eye Eye exam: Present PERRL and EOMI ENT ENT exam: Present normal exam and normal
[2022-04-28 08:53] LABS: Erythrocyte Sedimentation Rate > 140 mm/hr (0-20)
--- NOTE | 2022-04-28 09:22 | PC.NURSE ---
DR MENDIOLA AT BEDSIDE
--- NOTE | 2022-04-28 09:26 | PC.NURSE ---
DR MENDIOLA SPEAKING WITH DR RIOS
--- NOTE | 2022-04-28 09:32 | PC.NURSE ---
CARE MANAGEMENT NOTIFIED FOR ADMISSION
--- NOTE | 2022-04-28 10:06 | PC.NURSE ---
LAB COMING FOR REPEAT TROP
--- NOTE | 2022-04-28 10:10 | PC.NURSE ---
REPORT GIVEN TO GWENDOLYN RN
--- NOTE | 2022-04-28 10:13 | HMH.PHAINT1 ---
Pharmacy Intervention Comments: MEDICATION RECONCILIATION COMPLETED ON PATIENT USING EXTERNAL FILL HISTORY FROM PHARMACY. -MARYA DONOVAN, KEOD
--- NOTE | 2022-04-28 10:23 | EXP.HP ---
History of Present Illness *Admission Date: 04/28/22 *Reason for visit:: weakness; cough *History of present illness: Mr. Singh is an 87-year-old male with past medical history to include coronary artery disease, arthritis, hypertension, esophageal diverticulum, hypothyroidism, and failure to thrive in adult who was last seen in the office of [facility] in September 2021.. He presented to [facility] emergency room with 1 day of coughing which was productive and episode of nausea and vomiting after this. He did not have any any fever. He also had some mild chest and abdominal pain. With evaluation in the emergency room white count was elevated at 11,000 with a hemoglobin of 9.7 hematocrit of 31.6. Potassium was elevated at 5.7 with a BUN of 67 and creatinine of 2.4. Lactate also was elevated at 2.9. Troponin I was elevated at 0.04. He was started on Rocephin and Zithromax and given a liter of IV fluids. Chest x-ray showed chronic appearing findings. Abdominal/pelvis CT revealed the following: FINDINGS: ABDOMEN:? There is scarring at the lung bases.? Note is made of moderate bronchiectasis in the right lower lobe.? The liver parenchyma is homogeneous.? The heart size is normal.? The gallbladder is present.? Gastrostomy feeding tube is seen in the stomach.? The spleen is normal.? No adrenal mass is identified. The aorta is normal in caliber.? There is no significant free fluid or adenopathy.? There is no nephrolithiasis.? There is no hydronephrosis.? PELVIS: The appendix is not identified.? There is marked gaseous distension of the rectum measuring 9.6 cm in diameter.? The urinary bladder is incompletely distended. Streak artifact is seen from orthopedic hardware in the right femur.? There is no significant free fluid or adenopathy. IMPRESSION: Moderate bronchiectasis in the right lower lobe.? ? Marked gaseous distension of the rectum. At time of this exam son is in room and gives some information. who is his primary caregiver has gone home for a little while and will be back. She gives all his feedings per G tube. Apparently he is unable to swallow and usually spits up what ever he takes orally. Patient has previously been able to walk with a walker .He was also seen in the emergency room on 2022 after a fall. Feeding tube had also been accident gently pulled out by caregiver when adjusting his bed covering. After the fall he did complain of left hip pain. On this ER admission white blood cell count was 15,400. Potassium was 5.2. BUN was 47 and creatinine was 1.10. TSH was 9.34. Gastrostomy tube was replaced. Pelvic x-ray on this date showed newly visible right pubic Akil deformity suspicious for possible fracture. Cervical CT showed no definite cervical spinal fracture.. Chest x-ray revealed bilateral perihilar interstitial infiltrates. CT of the head revealed no acute intracranial abnormality. Patient indicates he has discomfort periumbilical. He denies shortness of breath and chest pain. He is extremely hard of hearing. [facility] Disclaimer: The information contained in this section may have been updated after the patient was seen, as this information can be updated by other users. Medical History (Updated 04/28/22 @ 17:30 by Javier Bains MD) Abnormal electrocardiography Acute esophageal obstruction CAD (coronary artery disease) Cardiomyopathy Esophageal diverticulum Failure to thrive in adult Gastrojejunostomy tube dislodgement Hearing deficit History of hip fracture History of pacemaker Hypertension Hypothyroidism Jejunostomy tube in situ Malnutrition Surgical History (Updated 04/28/22 @ 14:07 by Li Powers APRN) Hx of CABG Family History (Updated 04/28/22 @ 14:08 by Li Powers APRN) Coronary artery disease Hypertension Stroke Social History (Updated 04/28/22 @ 14:47 by Zakiya Sánchez RN) Smoking Status: Never smoker alcohol intake: never substance
--- NOTE | 2022-04-28 10:26 | PC.NURSE ---
arrived to floor by stretcher from ED
[2022-04-28 10:43] LABS: Troponin I 0.04 ng/ml (0.00-0.034)
[2022-04-28 11:41] LABS: Reflex Lactic Add Lactic Reflex
[2022-04-28 12:31] LABS: Lactic Acid Follow Up (RFLX 1) 1.1 mmol/L (0.7-2.1)
--- NOTE | 2022-04-28 15:20 | DIET.NUTRFU ---
Addendum entered by Suzanne Stacy RD, LD 04/28/22 16:29: Contacted [facility] to initiate TF, order in and nurse aware Addendum entered by Suzanne Stacy RD, LD 04/28/22 15:39: When medically feasible will start Jevity 1.2 at 20ml/hr ATC with goal rate of 40ml/hr providing 1152kcal/55.5gm protein and 807ml formula water at goal rate. At goal rate flush needs are 65ml [id number]/day. Currently receiving IVF, will start flush at 65ml Q4H and adjust depending on IVF and rate of TF. Original Note: This RD is familiar with patient had PEG placed 05/2021 secondary to esphageal diverticulum, when TF was placed had been grinding food and nectar thick liquids, recommended bolus feeding at that time. Spoke to social workers and they had sent home TF and completing teachinng that admit. But since then has been receiving most of his nutrition via food administered via tube. Spoke to son (not the one that does most of feeding) but was able to recall some of the FOOD that family administrate via tube. They regularly give scrambled eggs/peanut butter/potato chips/milk with minimal water flushes before and after food. He also takes minimal water orally at home. Would recommend NPO during stay unless able to complete speech eval. Patient was very lethargic upon visit. According to elementary school social worker family contacted [facility] post PEG placement and cancelled order, did not want supplies delivered. RD plans to review nutritional plan at home to determine if meeting needs, did explain to son that during hospital stay food would not be administered via tube. During stay will use formula and water flushes to meet 100% of nutritional needs. Based on current wt needs are 1150-1200kcal and 50-60gm protein (depending on wounds/skin condition) and 1200ml/day. Based on dietary recall and overall appearance with possible pressure are he triggers for severe PCM, will review with provider. When medically feasible will start Jevity 1.2 at 20ml/hr ATC with goal rate of 40ml/hr providing 1152kcal/55.5gm protein and 807ml formula water at goal rate. At goal rate flush needs are 65ml [id number]/day. Currently receiving IVF, will start flush at 65ml Q4H and adjust depending on IVF and rate of TF. He did have BM today. Labs reviewed Renal/potassium/liver function elevated and albumin depleted 3.0L and sodium on low side at 139. Nursing reported patient more alert after IVF provided. [ End ]
--- NOTE | 2022-04-28 16:16 | PC.NURSE ---
Addendum entered by Zakiya Sánchez RN 04/28/22 18:17: CHECKED FOR TUBE PLACEMEN, TUBE FEEDINGS STARTED PER DIETICIANS NOTE. 20ML/HR FEEDING, 65ML/HR FLUSH Q4H. G TUBE HAS SIGNIFICANT AMOUNT OF DARK, SEROUS DRAINAGE COMING FROM SITE. FREQUENT DSG CHANGES AROUND TUBE. EXCORIATION AT SITE. GABRIEL LAY ROUNDED ON PT ABOUT AN HR AGO. REQUESTED PT TO BE CODE DNR. BUTTERFLY DSG CDI TO BILAT BUTTOCKS AND RT ARM. Original Note: PT VERY [place]. ALERT TO SLEF, UNABLE TO VERBALIZE THE YEAR OR WHERE HE IS. G-TUBE IN PLACE. GAVE ORAL CARE. OPEN SCRAP ON RT ELBOW, STATED HE DOWN THAT WHEN HE FELL LAST WEEK. STATES SHES THE PRIMARY PROFESSOR OF COMMUNICATION FOR THE PT. STATES SHE FEEDS HIM COOKED MEALS AND BLENDS IT IN A BLINDER AND ADMIN THROUGH G-TUBE. PT INCONT OF BOWEL AND BLADDER. HEALING STAGE 2 TO BILAT SIDES OF LOWER BUTTOCKS. NO C/O PAIN N/V. BILAT LUNGS DIMINISHED. B/P HAVE BEEN SOFT, 1600 B/P 100/61. CB WITHIN REACH, FAMILY AT BEDSIDE.
--- NOTE | 2022-04-28 18:59 | PC.WOUNDNOTE ---
LT LOWER BUTTOCKS
--- NOTE | 2022-04-28 19:00 | PC.WOUNDNOTE ---
RT LOWER BUTTOCKS
[2022-04-29] VITALS (12 sets, daily range): BP systolic 117–135; BP diastolic 53–75; PULSE 87–107; RESP 16–20; TEMP 36.8–37.4; O2SAT 92–95; BMI 16.5
--- NOTE | 2022-04-29 03:36 | PC.NURSE ---
urine collected via purewick clean catch and set to lab for urinalysis as prescribed.
[2022-04-29 04:29] LABS: Microscopic, Urine URINE MICROSCOPIC (MICROSCOPIC)
[2022-04-29 04:54] LABS: Appearance,Urine CLEAR (Clear); Bilirubin,Urine Negative (Negative); Blood, Urine 2+ (Negative); Color,Urine YELLOW (Yellow); Glucose,Urine (UA) Negative (Negative); Ketones,Urine Negative (Negative); Leukocyte Esterase,Urine 2+ (Negative); Nitrate,Urine POSITIVE (Negative); Protein,Urine 1+ (Negative); Specific Gravity, Urine 1.015 (1.005-1.030); Urobilinogen,Urine 0.2 EU/dl (0.2)
[2022-04-29 05:19] LABS: Amorphous Sediment,Urine 1+ /lpf; Bacteria,Urine 2+ /lpf
--- NOTE | 2022-04-29 05:33 | PC.NURSE ---
no change from previous assessment, vss, pt incontinent of bowel and bladder, purewick in place with brief, pt turns self in bed, daughter remained at bedside through the night, pt was restless and asking to go home, pt is alert to name and bday but confused to place and time, lung sounds diminished, 02 sats 92-95% on room air, J-tube with jevity 1.2 infusing at 20ml, pt tolerating well at this time, j-tube insertion site with redness and excoriation note around, dressing changed around site, no acute distress.
[2022-04-29 06:49] LABS: Basophils % 0.2 % (0.1-2.0); Eosinophils % 0.1 % (0.1-12.0); Hematocrit 29.3 % (42.0-52.0); Hemoglobin 8.9 g/dL (14.1-18.0); Lymphocytes # 0.9 K/mm3 (0.7-4.5); Lymphocytes % 8.6 % (10-50); Mean Corpuscular HGB Conc 30.3 g/dL (31.8-35.4); Mean Corpuscular Hemoglobin 25.5 pg (27.0-31.2); Mean Corpuscular Volume 84.2 fl (80-94); Mean Platelet Volume 8.5 fl (7.4-10.4); Monocytes # 0.4 K/mm3 (0.1-1.0); Monocytes % 3.6 % (1.7-9.3); Neutrophils # 9.4 K/mm3 (1.8-7.8); Neutrophils % 87.5 % (37.0-80.0); Platelet Count 400 K/mm3 (142-424); Red Blood Count 3.48 M/mm3 (4.60-6.20); Red Cell Distribution Width 16.4 % (11.5-17.5); White Blood Count 10.7 K/mm3 (4.8-10.8)
[2022-04-29 06:53] LABS: MANUAL DIFFERENTIAL MANUAL DIFFERENTIAL (MANUAL DIFF)
[2022-04-29 06:58] LABS: Blood Urea Nitrogen 59 mg/dl (9-20); Carbon Dioxide 20 mmol/L (22.0-30.0); Chloride 114 mmol/L (98-107); Chol/HDL Ratio 4.1 (1-3.5); Cholesterol 53 mg/dl (140-200); Creatinine Clearance Estimated 17 mL/min (50-200); Estimated Glomerular Filt Rate 34 ml/min (>60); GFR (African American) 41 ML/MIN (>60); Glucose 114 mg/dl (74-100); HDL Cholesterol 13 mg/dl (40-60); Magnesium 2.3 mg/dl (1.6-2.3); Phosphorous 4.3 mg/dl (2.5-4.5); Sodium 142 mmol/L (136-145); Triglycerides 75 mg/dl (30-150); VLDL Cholesterol 15 mg/dL (0-40)
[2022-04-29 06:59] LABS: Anion Gap 12.3 mEq/L (5-15); Potassium 4.3 mmoL/L (3.5-5.1)
[2022-04-29 07:07] LABS: Anisocytosis 1+; Hypochromasia 2+; Lymphocytes % 8 % (10-50); Monocytes % 5 % (2-9); Neutrophils % 84 % (42-76); Platelet Estimate Slight Increase; Total Cells Counted 100
[2022-04-29 07:16] LABS: Direct LDL Cholesterol < 30.00 mg/dL (100-129)
--- NOTE | 2022-04-29 08:25 | EXP.ACUTE.PN ---
Subjective *Date: 04/29/22 *Time: 08:53 Interval history: Patient states he feels better this am. His daughter states he was unable to sleep most of the night. He denies any SOA or pain this am. Medical Exam Vital signs and Labs for Last 24 Hours: Vital Signs Temp Pulse Pulse Resp BP BP Pulse Ox 04/29/22 07:18 98.4 F 87 16 117/61 93 L 04/29/22 06:10 90 04/29/22 06:10 90 04/29/22 04:00 99.3 F 98 H 18 118/58 L 95 04/29/22 00:00 98.3 F 107 H 16 125/53 L 92 L 04/28/22 20:00 99 04/28/22 20:00 97.9 F 89 16 103/50 L 99 04/28/22 19:02 74 04/28/22 19:02 75 04/28/22 15:32 97.3 F L 69 12 91/40 L 99 04/28/22 14:47 76 04/28/22 14:47 78 04/28/22 10:56 97.9 F 75 14 100/57 L 96 04/28/22 10:25 98.9 F 75 22 100/57 L 04/28/22 09:30 77 22 101/50 L 95 04/28/22 09:00 76 20 99/55 L 94 L Intake and Output 04/28/22 04/29/22 04/29/22 19:59 03:59 11:59 Intake Total 1859 / 1859 Output Total 20 / 120 100 / 120 Balance -1738 175 / 173 Intake: Intake, Oral Amount 0 / 0 Intake, Tube Feeding Amount 243 / 243 Intake, Tube Irrigant Amount 130 / 130 Intake, Total IV Amount 1486 / 1486 0.9 % Sodium Chloride 1000ML 1, 1486 / 1486 000 ml @ 100 mls/hr IV .Q10H [facility] Rx#:[id number] Output: Output, Urine Amount 20 / 120 100 / 120 Other: Number of Unmeasured Voids 0 0 Number of Bowel Movements 1 Weight 90 lb 5.88 oz 93 lb 1.6 oz Patient Weight 04/29/22 11:59 Weight 93 lb 1.6 oz Laboratory Results - last 24 hr 04/28/22 07:26: Total Counted 100, Neutrophils % (Manual) 84 H, Lymphocytes % (Manual) 10, Monocytes % (Manual) 6, Platelet Estimate Slight increase, RBC Morphology Not Reportable, Hypochromasia 1+, Anisocytosis 1+, Ovalocytes 1+, ESR > 140 H 04/28/22 07:26: Procalcitonin 1.47 04/28/22 10:15: Troponin I 0.04 H 04/28/22 12:15: Lactate 1.1 04/29/22 03:29: Urine Color Yellow, Urine Appearance Clear, Urine pH 6.0, Ur Specific [place] 1.015, Urine Protein 1+, Urine Glucose (UA) Negative, Urine Ketones Negative, Urine Blood 2+, Urine Nitrate Positive, Urine Bilirubin Negative, Urine Urobilinogen 0.2, Ur Leukocyte Esterase 2+ A, Urine WBC 5-10, Amorphous Sediment 1+, Urine Bacteria 2+ 04/29/22 06:10: WBC 10.7, RBC 3.48 L, Hgb 8.9 L, Hct 29.3 L, MCV 84.2, MCH 25.5 L, MCHC 30.3 L, RDW 16.4, Plt Count 400, MPV 8.5, Neut % (Auto) 87.5 H, Lymph % (Auto) 8.6 L, [place] % (Auto) 3.6, Eos % (Auto) 0.1, Baso % (Auto) 0.2, Neut # (Auto) 9.4 H, Lymph # (Auto) 0.9, [place] # (Auto) 0.4, Eos # (Auto) 0.0, Baso # (Auto) 0.0, Total Counted 100, Neutrophils % (Manual) 84 H, Band Neutrophils % 3.0, Lymphocytes % (Manual) 8 L, Monocytes % (Manual) 5, Platelet Estimate Slight increase, Hypochromasia 2+, Anisocytosis 1+ 04/29/22 06:10: Sodium 142, Potassium 4.3 D, Chloride 114 H, Carbon Dioxide 20 L, Anion Gap 12.3, BUN 59 H, Creatinine 1.90 H D, Estimated Creat Clear 17, Estimated GFR 34 L, Est GFR ( Amer) 41 L D, Glucose 114 H, Calcium 8.0 L, Phosphorus 4.3, Magnesium 2.3, Triglycerides 75, Cholesterol 53 L, LDL Cholesterol Direct < 30.00 L, VLDL Cholesterol 15, HDL Cholesterol 13 L, Cholesterol/HDL Ratio 4.1 H I & O for Labs for Last 24 Hours: Intake & Output 04/26/22 04/27/22 04/28/22 04/29/22 11:59 11:59 11:59 11:59 Intake Total 1859 / 1859 Output Total 0 / 0 120 / 120 Balance 0 / 0 1739 / 1739 Weight 90 lb 6 oz 93 lb 1.6 oz Constitutional: Present thin and cachectic Respiratory: Present CTA bilaterally and diminished air movement (congested cough) Cardiac: Present Reg Rate and Rhythm GI: Present soft and tenderness (only around G-tube site); Absent distention or guarding Extremities: Absent edema Skin: Present pallor Neuro: Present alert and awake Assessment and Plan *Assessment and plan (1) Pneumonia: Status: Acute Category: Medical Code(
--- NOTE | 2022-04-29 08:28 | DIET.NUTRFU ---
Addendum entered by Suzanne Stacy RD, LD 04/29/22 13:12: During visit Dr Hayes came in to look at J-tube, its been having drainage and putting skin around the tube at risk. Patient skin was red and appeared painful when moved tube around patient provide painful expressions. Dr Hayes put fresh gauzes around tube and said he would back to try to tighten the tube to help with drainage Addendum entered by Suzanne Stacy RD, LD 04/29/22 12:49: Spoke to in great depth about meal plans for blended food via tube. This RD expressed concern about measuring food and getting the correct portion of the food to meet needs. She is willing to increase to 2 tbsp of peanut butter and 1/2 cup-1 cup of ice cream. She said at times she gives 2 boost/day and then she also has a meal replacement she ordered by mail but not sure what it is called and what nutritional facts are in the replacement. Encouraged her to bring in package to read info. RD expressed importance for protein intake with skin breakdown and fluid needs for hydration. Spoke to her about reading nutritional facts and correct portions. Provided her a handout on blenderized foods with his nutritional needs on it. According to patient will only allow to feed him 2/day, RD told patient he really need to eat 3 times/day to meet needs. Family does plan on continuing to use the blenderized food vs the formula believe it is due to cost and insurance. Currently tolerating TF at 20ml/hr, nursing reported loose bowels possibly d/t ABT tx. Hopeful to increase TF to meet needs. Original Note: Patient tolerated TF through night at 20ml/hr ATC with flush ordered at 65ml Q4H with goal rate of 40ml/hr. Will touch base with today she is his main caregiver who provides most of his nutrition. Would like to learn more about serving size for food. [place] yesterday patient gets 2 scrambled eggs/milk/water/banana/peanut butter/cereal and chips for breakfast and for dinner he gets boost/peanut butter/2 pieces of bread/2 scoops of ice cream and chips. pictures are on file for stage 2 to coccyx
--- NOTE | 2022-04-29 13:41 | HMH.PTWOUND ---
Rehab Inpt Wound Evaluation Rehab IP Wound Evaluation Start: 04/29/22 08:57 Freq: NEEDED Status: Active Protocol: Document 04/29/22 13:28 PETEY (Rec: 04/29/22 13:41 PHOLAURIE [id number]) Rehab PT Wound Assessment Subjective Subjective 87 yowm adm to [facility] with generalized weakness, sepsis, recent falls. Hx of PEG tube for all feeding with poor overal nutrition. His is his primary caregiver who reportrs she did not see any wounds on him prior to his admission to the hospital, however he did sit in a hard kitchen chair all night before we came here because I couldn't get him to the bed. He now presents with evolving pressure injury to both buttocks over the IT area, which is most likely a direct result of prolonged sitting upright in a chair without pressure relief prior to his admission. Wound Left Buttock Wound Type Pressure Ulcer Is This a Chronic Wound No Wound Staging Stage II Query Text:Stage I - Unbroken, red skin, no blanching. Stage II - Skin broken, superficial skin loss involving epidermis alone or also dermis. Partial loss of skin layers. Stage III - Pressure area involves epidermis, dermis and subcutaneous tissue, full thickness skin loss. Stage IV - Pressure area involves epidermis, subcutaneous tissue, bone and other supportive tissue. Full thickness skin loss with extensive destruction of underlying tissue and structures. Wound Length (cm) 4.0 Wound Width (cm) 2.0 Wound Depth (cm) 0.1 Wound Bed Appearance [place],Eschar Percentage Granulated (%) 25 Percentage of [place]char (Black) (%) 75 Wound Margins Description Indistinct Surrounding Tissue Appearance [place],Bright Red Wound Drainage Description Serous Drainage Amount Scant Dressing Change Patient Tolerance Tolerated Well Right Buttock Wound Type Pressure Ulcer Is This a Chronic Wound No Wound Staging Stage II Query Text:Stage I - Unbroken, red skin, no rica
--- NOTE | 2022-04-29 14:04 | EXP.SURG.CON ---
History of Present Illness *Admission Date: 04/28/22 *Reason for visit:: Leakage around gastric tube *History of present illness: This is an 87-year-old gentleman seen in consultation from his primary care provider for evaluation regarding leaking gastrostomy tube. A replacement gastrostomy tube was secured in position on April 19 during Emergency Department evaluation. Evaluation by his primary care provider during this admission revealed significant gastrostomy tube leakage and associated excoriation/rash. Forwarded from admission H&P: Mr. Singh is an 87-year-old male with past medical history to include coronary artery disease, arthritis, hypertension, esophageal diverticulum, hypothyroidism, and failure to thrive in adult who was last seen in the office of [facility] in September 2021.. He presented to [facility] emergency room with 1 day of coughing which was productive and episode of nausea and vomiting after this. He did not have any any fever. He also had some mild chest and abdominal pain. With evaluation in the emergency room white count was elevated at 11,000 with a hemoglobin of 9.7 hematocrit of 31.6. Potassium was elevated at 5.7 with a BUN of 67 and creatinine of 2.4. Lactate also was elevated at 2.9. Troponin I was elevated at 0.04. He was started on Rocephin and Zithromax and given a liter of IV fluids. At time of this exam son is in room and gives some information. who is his primary caregiver has gone home for a little while and will be back. She gives all his feedings per G tube. Apparently he is unable to swallow and usually spits up what ever he takes orally. Patient has previously been able to walk with a walker .He was also seen in the emergency room on 2022 after a fall. Feeding tube had also been accident gently pulled out by caregiver when adjusting his bed covering. After the fall he did complain of left hip pain. On this ER admission white blood cell count was 15,400. Potassium was 5.2. BUN was 47 and creatinine was 1.10. TSH was 9.34. Gastrostomy tube was replaced. Pelvic x-ray on this date showed newly visible right pubic Akil deformity suspicious for possible fracture. Cervical CT showed no definite cervical spinal fracture.. Chest x-ray revealed bilateral perihilar interstitial infiltrates. CT of the head revealed no acute intracranial abnormality. Patient indicates he has discomfort periumbilical. He denies shortness of breath and chest pain. He is extremely hard of hearing. PFSH PFSH Disclaimer: The information contained in this section may have been updated after the patient was seen, as this information can be updated by other users. Medical History (Updated 04/29/22 @ 14:10 by Devon Hayes MD) Abnormal electrocardiography Acute esophageal obstruction CAD (coronary artery disease) Cardiomyopathy Esophageal diverticulum Failure to thrive in adult Gastrojejunostomy tube dislodgement Hearing deficit History of hip fracture History of pacemaker Hypertension Hypothyroidism Malnutrition Surgical History (Updated 04/28/22 @ 14:07 by Li Powers APRN) Hx of CABG Family History (Updated 04/28/22 @ 14:08 by Li Powers APRN) Coronary artery disease Hypertension Stroke Social History (Updated 04/28/22 @ 14:47 by Zakiya Sánchez RN) Smoking Status: Never smoker alcohol intake: never substance use type: denies use current occupational status: retired Travel in the last 8 weeks: None household members: spouse housing: house caffeine: Yes Review of Systems Constitutional Constitutional: Denies headache(s) and Reports weakness ENT Ears, Nose, Mouth, and Throat: Denies headache(s) *Musculoskeletal Musculoskeletal: Reports a
--- NOTE | 2022-04-29 17:53 | PC.NURSE ---
PT HAS DONE WELL TODAY, MORE ALERT AND TALKATIVE THAT ON ADMISSION. PT STILL ONLY ALERT TO SELF, CONFUSED TO PLACE, TIME, AND SITUATION. LUNGS DIMINISHED. INCREASED TUBE FEEDING TO 30MLS/HR, TOLERATING WELL. REMOVED DSGS ON BUTTOCKS, PER SENTHIL APPLY BARRIER CREAM TO AREAS NEEDED. STATES THE PT SAT IN THE KITCHEN CHAIR ALL NIGHT BECAUSE HE COULDNT WALK TO BED AND THAT MUST OF BEEN HOW THE WOUNDS HAPPENED. MULTIPLE FAMILY MEMBERS HAVE BEEN AT BEDSIDE TODAY. NO CONCERNS AT THIS TIME.
[2022-04-30] VITALS (10 sets, daily range): BP systolic 102–141; BP diastolic 42–77; PULSE 63–113; RESP 16–22; TEMP 36.5–37.3; O2SAT 92–97; BMI 16.7
--- NOTE | 2022-04-30 04:24 | PC.NURSE ---
pt rested well through the night, no changes from previous assessment, pressure areas open to air per pt recommendation, pt is alert to self only, pt is incontinent of bowel and bladder, tube feeds jevity 1.2 infusing at 30ml/hr and pt is tolerating, peg tube patent with abd binder in place, no acute distress, low grade temp noted 99 degress, no other issues at this time, 02 sats remain 94-95% on room air, lung sounds diminished.
[2022-04-30 06:35] LABS: Basophils % 0.2 % (0.1-2.0); Eosinophils # 0.1 K/mm3 (0.0-0.4); Eosinophils % 1.1 % (0.1-12.0); Hematocrit 30.5 % (42.0-52.0); Hemoglobin 9.3 g/dL (14.1-18.0); Lymphocytes # 1.1 K/mm3 (0.7-4.5); Lymphocytes % 9.9 % (10-50); Mean Corpuscular HGB Conc 30.5 g/dL (31.8-35.4); Mean Corpuscular Volume 85.3 fl (80-94); Monocytes # 0.4 K/mm3 (0.1-1.0); Monocytes % 3.4 % (1.7-9.3); Neutrophils # 9.7 K/mm3 (1.8-7.8); Neutrophils % 85.4 % (37.0-80.0); Platelet Count 358 K/mm3 (142-424); Red Blood Count 3.57 M/mm3 (4.60-6.20); Red Cell Distribution Width 16.7 % (11.5-17.5); White Blood Count 11.4 K/mm3 (4.8-10.8)
[2022-04-30 06:36] LABS: MANUAL DIFFERENTIAL MANUAL DIFFERENTIAL (MANUAL DIFF)
[2022-04-30 06:43] LABS: Alanine Aminotransferase 56 U/L (12-78); Albumin Level 2.4 g/dl (3.5-5.0); Albumin/Globulin Ratio 0.6 (1.1-1.8); Alkaline Phosphatase 110 U/L (38-126); Anion Gap 7.7 mEq/L (5-15); Aspartate Amino Transferase 59 U/L (17-59); Bilirubin,Total 0.3 mg/dl (0.2-1.3); Blood Urea Nitrogen 45 mg/dl (9-20); Calcium 8.1 mg/dl (8.4-10.2); Carbon Dioxide 20 mmol/L (22.0-30.0); Chloride 120 mmol/L (98-107); Creatinine Clearance Estimated 23 mL/min (50-200); Estimated Glomerular Filt Rate 48 ml/min (>60); GFR (African American) 58 ML/MIN (>60); Globulin 3.7 g/dL (1.3-3.2); Glucose 123 mg/dl (74-100); Potassium 4.7 mmoL/L (3.5-5.1); Sodium 143 mmol/L (136-145); Total Protein,Serum 6.1 g/dl (6.3-8.2)
[2022-04-30 07:57] LABS: Eosinophils % 1 % (0-3); Hypochromasia 1+; Lymphocytes % 11 % (10-50); Monocytes % 4 % (2-9); Neutrophils % 84 % (42-76); Platelet Estimate Normal; Total Cells Counted 100
--- NOTE | 2022-04-30 08:19 | P.PN_ITS ---
Subjective Narrative: Per nursing, significant decrease in leakage around gastric tube noted. Exam Data for Last 24 hours Vital signs and Labs for Last 24 Hours: Temp Pulse Resp BP Pulse Ox 99.1 F 100 H 20 141/67 H 94 L 04/30/22 04:00 04/30/22 06:22 04/30/22 04:00 04/30/22 04:00 04/30/22 04:00 Laboratory Results - last 24 hr 04/30/22 06:20: WBC 11.4 H, RBC 3.57 L, Hgb 9.3 L, Hct 30.5 L, MCV 85.3, MCH 26.0 L, MCHC 30.5 L, RDW 16.7, Plt Count 358, MPV 8.0, Neut % (Auto) 85.4 H, Lymph % (Auto) 9.9 L, [place] % (Auto) 3.4, Eos % (Auto) 1.1, Baso % (Auto) 0.2, Neut # (Auto) 9.7 H, Lymph # (Auto) 1.1, [place] # (Auto) 0.4, Eos # (Auto) 0.1, Baso # (Auto) 0.0, Total Counted 100, Neutrophils % (Manual) 84 H, Lymphocytes % (Manual) 11, Monocytes % (Manual) 4, Eosinophils % (Manual) 1, Platelet Estimate Normal, Hypochromasia 1+ 04/30/22 06:20: Sodium 143, Potassium 4.7, Chloride 120 H, Carbon Dioxide 20 L, Anion Gap 7.7, BUN 45 H, Creatinine 1.40 H D, Estimated Creat Clear 23, Estimated GFR 48 L, Est GFR ( Amer) 58 L D, Glucose 123 H, Calcium 8.1 L, Total Bilirubin 0.3, AST 59 D, ALT 56 D, Alkaline Phosphatase 110, Total Protein 6.1 L, Albumin 2.4 L, Globulin 3.7 H, Albumin/Globulin Ratio 0.6 L I & O for Last 24 hours: Intake & Output 04/27/22 04/28/22 04/29/22 04/30/22 11:59 11:59 11:59 11:59 Intake Total 1859 / 1859 3391 / 3391 Output Total 0 / 0 120 / 120 0 / 0 Balance 0 / 0 1739 / 1739 3391 / 3391 Weight 90 lb 6 oz 93 lb 1.6 oz 94 lb 3.2 oz Microbiology Reports for the Last 24 Hours: Microbiology 04/28/22 07:30 Blood Blood Culture - Preliminary NO GROWTH AFTER 48 HOURS 04/28/22 07:26 Blood Blood Culture - Preliminary NO GROWTH AFTER 48 HOURS 04/29/22 03:29 Urine,Clean Catch Urine Culture - Preliminary NO GROWTH AFTER 24 HOURS Constitutional Constitutional: disheveled *Routine Abdominal Exam Comments: Gastric tube dressing without evidence of leakage. Gastric tube appears to be in good position. Progress Note: A&P Assessment and plan (1) Gastrostomy tube dysfunction: Problem details: Significant distal migration prior to tightening hub with silk ties Status: Acute Assessment and Plan Assessment and Plan for All Diagnoses:: Continue to closely monitor for signs of leakage or additional slippage with migration.
--- NOTE | 2022-04-30 08:22 | EXP.ACUTE.PN ---
Subjective *Date: 04/30/22 *Time: 09:01 Interval history: Patient states he feels about the same today. He denies any pain. He says he did sleep better tonight. He says he wants a pop to drink this am. Medical Exam Vital signs and Labs for Last 24 Hours: Vital Signs Temp Pulse Pulse Resp BP Pulse Ox 04/30/22 06:22 100 H 04/30/22 06:22 99 H 04/30/22 04:00 98 H 20 141/67 H 94 L 04/30/22 04:00 99.1 F 04/29/22 23:47 99.0 F 97 H 18 135/63 94 L 04/29/22 20:00 107 H 95 04/29/22 19:57 99.2 F 107 H 20 128/75 95 04/29/22 19:02 87 04/29/22 19:02 87 04/29/22 15:16 99.3 F 100 H 18 126/61 95 04/29/22 14:01 94 H 04/29/22 14:01 94 H 04/29/22 10:59 99.0 F 97 H 19 126/68 95 04/29/22 10:21 92 H 04/29/22 10:21 92 H Intake and Output 04/29/22 04/30/22 04/30/22 19:59 03:59 11:59 Intake Total 1224 / 3391 2167 / 3391 Output Total 0 / 0 0 / 0 Balance 1224 / 3391 2167 / 3391 Intake: Intake, Oral Amount 0 / 0 Intake, Tube Feeding Amount 593 / 593 Intake, Tube Irrigant Amount 325 / 325 Intake, Total IV Amount 1224 / 2473 1249 / 2473 0.9 % Sodium Chloride 1000ML 1, 1224 / 2473 1249 / 2473 000 ml @ 100 mls/hr IV .Q10H [facility] Rx#:[id number] Output: Output, Urine Amount 0 / 0 0 / 0 Other: Number of Unmeasured Voids 2 2 0 Number of Bowel Movements 1 1 Weight 94 lb 3.2 oz Patient Weight 04/30/22 11:59 Weight 94 lb 3.2 oz Laboratory Results - last 24 hr 04/30/22 06:20: WBC 11.4 H, RBC 3.57 L, Hgb 9.3 L, Hct 30.5 L, MCV 85.3, MCH 26.0 L, MCHC 30.5 L, RDW 16.7, Plt Count 358, MPV 8.0, Neut % (Auto) 85.4 H, Lymph % (Auto) 9.9 L, [place] % (Auto) 3.4, Eos % (Auto) 1.1, Baso % (Auto) 0.2, Neut # (Auto) 9.7 H, Lymph # (Auto) 1.1, [place] # (Auto) 0.4, Eos # (Auto) 0.1, Baso # (Auto) 0.0, Total Counted 100, Neutrophils % (Manual) 84 H, Lymphocytes % (Manual) 11, Monocytes % (Manual) 4, Eosinophils % (Manual) 1, Platelet Estimate Normal, Hypochromasia 1+ 04/30/22 06:20: Sodium 143, Potassium 4.7, Chloride 120 H, Carbon Dioxide 20 L, Anion Gap 7.7, BUN 45 H, Creatinine 1.40 H D, Estimated Creat Clear 23, Estimated GFR 48 L, Est GFR ( Amer) 58 L D, Glucose 123 H, Calcium 8.1 L, Total Bilirubin 0.3, AST 59 D, ALT 56 D, Alkaline Phosphatase 110, Total Protein 6.1 L, Albumin 2.4 L, Globulin 3.7 H, Albumin/Globulin Ratio 0.6 L I & O for Labs for Last 24 Hours: Intake & Output 04/27/22 04/28/22 04/29/22 04/30/22 11:59 11:59 11:59 11:59 Intake Total 1859 / 1859 3391 / 3391 Output Total 0 / 0 120 / 120 0 / 0 Balance 0 / 0 1739 / 1739 3391 / 3391 Weight 90 lb 6 oz 93 lb 1.6 oz 94 lb 3.2 oz Microbiology Reports for the Last 24 Hours: Microbiology 04/28/22 07:30 Blood Blood Culture - Preliminary NO GROWTH AFTER 48 HOURS 04/28/22 07:26 Blood Blood Culture - Preliminary NO GROWTH AFTER 48 HOURS 04/29/22 03:29 Urine,Clean Catch Urine Culture - Preliminary NO GROWTH AFTER 24 HOURS Constitutional: Present thin and cachectic Respiratory: Present CTA bilaterally and diminished air movement (congested cough) Cardiac: Present Reg Rate and Rhythm GI: Present soft and tenderness (only around G-tube site); Absent distention or guarding Extremities: Absent edema Skin: Present pallor Neuro: Present alert and awake Assessment and Plan *Assessment and plan (1) Pneumonia: Status: Acute Category: Medical Code(s): J18.9 - Pneumonia, unspecified organism (2) Severe sepsis: Status: Acute Category: Medical Code(s): A41.9 - Sepsis, unspecified organism; R65.20 - Severe sepsis without septic shock (3) Hypothyroidism: Status: Acute Category: Medical Code(s): E03.9 - Hypothyroidism, unspecified (4) Hypertension: Status: Chronic Qualifie
--- NOTE | 2022-04-30 12:21 | DIET.NUTRFU ---
continues to tolerate TF at 30ml/hr nursing plans to increase to 40ml/hr to meet his nutritional needs. IVF was decreasing today, once TF is at 100% depending on labs would recommending discontinuing IVF. 40ml/hr would provide 1152kcal/55.5gm protein and 807ml formula water at goal rate. At goal rate flush needs are 65ml H2e=319sf+158=3949ab/day. Spoke to today she brought in the meal replacement she had at the house, it is Jevity 1.5 250ml bottles she received when he had feeding tube placed back in May. This RD explained to her that he is receiving the Jevity 1.2 here, it is his complete nutrition. Suggested to used it up while he weak and then depending on cost/insurance reorder of switch over to the boost and food again. He would benefit from 4 bottles of the Jevity 1.5/day to provide 1420kcal/day, 60gm protein and 720ml formula water with 135ml 4x day flush. Patient typically gets fed 2x day, encouraged to do 3 times to help patient tolerate the entire amount needed. said she would try her best to feed him 3xday. Consulted social services technician to review how she may get more tubefeeding formula.
--- NOTE | 2022-04-30 15:02 | CARE MANAGER ---
Spoke with patient's family at bedside to discuss discharge planning needs. I discussed ordering tube feeding and supplies vs home preparation. Patient's stated that she would prefer to continue with the feeding tube meals she has been preparing prior to admission. She stated that our dietitian had given them some ideas on what foods could be added at home if family continues to prepare own tube feeds. has agreed to HH services and Patient Choice signed for [facility], which was placed in chart. CM will continue to follow for discharge planning needs.
[2022-05-01] VITALS (9 sets, daily range): BP systolic 110–142; BP diastolic 58–98; PULSE 55–114; RESP 18–22; TEMP 36.5–36.9; O2SAT 91–97; BMI 18.5
--- NOTE | 2022-05-01 04:13 | PC.NURSE ---
pt tolerating tube feed rate of 40 ml/hr with residuals <10. pt is A&O only to person, cooperative and follows commands. pt. has not complained of pain this shift. dressing around g tube was changed, dark drainage noted to old dressing, abdominal binder in place. turned q2hrs.
--- NOTE | 2022-05-01 08:48 | EXP.ACUTE.PN ---
Subjective *Date: 05/01/22 *Time: 08:48 Interval history: Patient with no new complaints today. Medical Exam Vital signs and Labs for Last 24 Hours: Vital Signs Temp Pulse Pulse Resp BP Pulse Ox 05/01/22 07:31 97.8 F 57 L 18 131/62 97 05/01/22 06:07 70 05/01/22 06:07 74 05/01/22 04:00 98.4 F 114 H 20 128/84 95 04/30/22 23:58 98.2 F 106 H 18 104/58 L 94 L 04/30/22 19:24 97.7 F 113 H 18 117/57 L 92 L 04/30/22 19:02 79 04/30/22 19:02 78 04/30/22 16:00 97.7 F 63 16 105/77 L 92 L 04/30/22 13:46 82 04/30/22 13:46 81 04/30/22 12:00 98.5 F 100 H 22 124/57 L 97 04/30/22 11:07 75 18 04/30/22 11:07 77 04/30/22 11:07 77 Intake and Output 04/30/22 05/01/22 05/01/22 23:59 07:59 15:59 Intake Total 1515 / 3682 1076 / 1076 Output Total 0 / 0 Balance 1515 / 3682 1076 / 1076 Intake: Intake, Tube Feeding Amount 402 / 995 424 / 424 Intake, Tube Irrigant Amount 130 / 130 Intake, Total IV Amount 522 / 522 0.9 % Sodium Chloride 1000ML 1, 522 / 522 000 ml @ 50 mls/hr IV .Q20H [facility] Rx#:[id number] Infusion Intake 1113 / 1113 0.9 % Sodium Chloride 1000ML 1, 1113 / 1113 000 ml @ 50 mls/hr IV .Q20H [facility] Rx#:[id number] Output: Output, Urine Amount 0 / 0 Other: Number of Unmeasured Voids 1 Number of Urine Attends/Diapers 1 Weight 104 lb 6.4 oz Patient Weight 05/01/22 23:59 Weight 104 lb 6.4 oz I & O for Labs for Last 24 Hours: Intake & Output 04/28/22 04/29/22 04/30/22 05/01/22 23:59 23:59 23:59 23:59 Intake Total 3083 / 5250 3682 / 3682 1076 / 1076 Output Total 0 / 20 120 / 120 0 / 0 Balance 0 / -20 2963 / 5130 3682 / 3682 1076 / 1076 Weight 90 lb 5.88 oz 93 lb 1.6 oz 94 lb 3.2 oz 104 lb 6.4 oz Microbiology Reports for the Last 24 Hours: Microbiology 04/29/22 03:29 Urine,Clean Catch Urine Culture - Final NO GROWTH AFTER 48 HOURS 04/28/22 07:30 Blood Blood Culture - Preliminary NO GROWTH AFTER 48 HOURS 04/28/22 07:26 Blood Blood Culture - Preliminary NO GROWTH AFTER 48 HOURS Constitutional: Present thin and cachectic Respiratory: Present CTA bilaterally and diminished air movement (congested cough) Cardiac: Present Reg Rate and Rhythm GI: Present soft and tenderness (only around G-tube site); Absent distention or guarding Extremities: Absent edema Skin: Present pallor Neuro: Present alert and awake Assessment and Plan *Assessment and plan (1) Pneumonia: Status: Acute Category: Medical Code(s): J18.9 - Pneumonia, unspecified organism (2) Severe sepsis: Status: Acute Category: Medical Code(s): A41.9 - Sepsis, unspecified organism; R65.20 - Severe sepsis without septic shock (3) Hypothyroidism: Status: Acute Category: Medical Code(s): E03.9 - Hypothyroidism, unspecified (4) Hypertension: Status: Chronic Qualifiers: Hypertension type: primary hypertension Qualified Code(s): I10 - Essential (primary) hypertension Category: Medical Code(s): I10 - Essential (primary) hypertension (5) Hearing deficit: Status: Chronic Qualifiers: Hearing loss type: unspecified Laterality: unspecified laterality Qualified Code(s): H91.90 - Unspecified hearing loss, unspecified ear Category: Medical Code(s): H91.90 - Unspecified hearing loss, unspecified ear (6) Malnutrition: Status: Acute Qualifiers: Malnutrition type: protein-calorie malnutrition Protein-calorie malnutrition severity: unspecified severity Qualified Code(s): E46 - Unspecified protein-calorie malnutrition Category: Medical Code(s): E46 - Unspecified protein-calorie malnutrition (7) Closed fracture of single pubic ramus of pelvis:
--- NOTE | 2022-05-01 10:08 | EXP.PHA.PN ---
Subjective *Date: 05/01/22 *Time: 10:08 Medical Exam Vital signs and Labs for Last 24 Hours: Vital Signs Temp Pulse Pulse Resp BP Pulse Ox 05/01/22 07:31 97.8 F 57 L 18 131/62 97 05/01/22 06:07 70 05/01/22 06:07 74 05/01/22 04:00 98.4 F 114 H 20 128/84 95 04/30/22 23:58 98.2 F 106 H 18 104/58 L 94 L 04/30/22 19:24 97.7 F 113 H 18 117/57 L 92 L 04/30/22 19:02 79 04/30/22 19:02 78 04/30/22 16:00 97.7 F 63 16 105/77 L 92 L 04/30/22 13:46 82 04/30/22 13:46 81 04/30/22 12:00 98.5 F 100 H 22 124/57 L 97 04/30/22 11:07 75 18 04/30/22 11:07 77 04/30/22 11:07 77 Intake and Output 04/30/22 05/01/22 05/01/22 23:59 07:59 15:59 Intake Total 1515 / 3682 1076 / 1076 Output Total 0 / 0 0 / 0 Balance 1515 / 3682 1076 / 1076 0 / 1076 Intake: Intake, Tube Feeding Amount 402 / 995 424 / 424 Intake, Tube Irrigant Amount 130 / 130 Intake, Total IV Amount 522 / 522 0.9 % Sodium Chloride 1000ML 1, 522 / 522 000 ml @ 50 mls/hr IV .Q20H [facility] Rx#:[id number] Infusion Intake 1113 / 1113 0.9 % Sodium Chloride 1000ML 1, 1113 / 1113 000 ml @ 50 mls/hr IV .Q20H [facility] Rx#:[id number] Output: Output, Urine Amount 0 / 0 0 / 0 Other: Number of Unmeasured Voids 1 1 Number of Urine Attends/Diapers 1 Weight 47.355 kg Patient Weight 05/01/22 23:59 Weight 47.355 kg I & O for Labs for Last 24 Hours: Intake & Output 04/28/22 04/29/22 04/30/22 05/01/22 23:59 23:59 23:59 23:59 Intake Total 3083 / 5250 3682 / 3682 1076 / 1076 Output Total 0 / 20 120 / 120 0 / 0 0 / 0 Balance 0 / -20 2963 / 5130 3682 / 3682 1076 / 1076 Weight 40.99 kg 42.229 kg 42.728 kg 47.355 kg Microbiology Reports for the Last 24 Hours: Microbiology 04/29/22 03:29 Urine,Clean Catch Urine Culture - Final NO GROWTH AFTER 48 HOURS 04/28/22 07:30 Blood Blood Culture - Preliminary NO GROWTH AFTER 48 HOURS 04/28/22 07:26 Blood Blood Culture - Preliminary NO GROWTH AFTER 48 HOURS The patient's infection will respond to the chosen ABx?: Yes Is the patient receiving the right drug, dose, and route?: Yes Could a more targeted ABx be ordered?: No (AFEBRILE, IMPROVED PER MD NOTE. CX NEGATIVE.)
--- NOTE | 2022-05-01 10:33 | EXP.SURG.PN ---
Subjective Narrative: No issues. Decreased leakage around gastrostomy tube since repositioned. At goal on tube feeds. Exam Data for Last 24 hours Vital signs and Labs for Last 24 Hours: Temp Pulse Resp BP Pulse Ox 97.8 F 97 H 18 131/62 97 05/01/22 07:31 05/01/22 10:10 05/01/22 07:31 05/01/22 07:31 05/01/22 07:31 I & O for Last 24 hours: Intake & Output 04/28/22 04/29/22 04/30/22 05/01/22 11:59 11:59 11:59 11:59 Intake Total 1859 / 1859 3391 / 3391 2591 / 2591 Output Total 0 / 0 120 / 120 0 / 0 0 / 0 Balance 0 / 0 1739 / 1739 3391 / 3391 2591 / 2591 Weight 90 lb 6 oz 93 lb 1.6 oz 94 lb 3.2 oz 104 lb 6.4 oz Microbiology Reports for the Last 24 Hours: Microbiology 04/29/22 03:29 Urine,Clean Catch Urine Culture - Final NO GROWTH AFTER 48 HOURS 04/28/22 07:30 Blood Blood Culture - Preliminary NO GROWTH AFTER 48 HOURS 04/28/22 07:26 Blood Blood Culture - Preliminary NO GROWTH AFTER 48 HOURS *Routine Abdominal Exam Abdominal: Present soft Comments: Gastrostomy tube site intact with minimal drainage. 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
--- NOTE | 2022-05-01 17:57 | PC.NURSE ---
PT TOLERATING TUBE FEEDS WELL. RESIDUALS CHECKED THIS SHIFT WERE ALL LESS THAN 10, FAMILY HAS BEEN AT BEDSIDE FOR MOST OF SHIFT. TURN Q2HR, HE IS NOT REQUIRING O2 SUPPORT. 579 ML FEEDING AND 195 ML FLUSH CLEARED FROM PUMP.
[2022-05-02] VITALS (10 sets, daily range): BP systolic 101–130; BP diastolic 45–81; PULSE 52–113; RESP 16–22; TEMP 36.4–37.5; O2SAT 71–97; BMI 17.1
[2022-05-02 08:12] LABS: Basophils # 0.1 K/mm3 (0-0.2); Basophils % 0.4 % (0.1-2.0); Eosinophils # 0.2 K/mm3 (0.0-0.4); Eosinophils % 1.4 % (0.1-12.0); Hematocrit 31.1 % (42.0-52.0); Hemoglobin 9.5 g/dL (14.1-18.0); Lymphocytes # 2.3 K/mm3 (0.7-4.5); Lymphocytes % 14.8 % (10-50); MANUAL DIFFERENTIAL MANUAL DIFFERENTIAL (MANUAL DIFF); Mean Corpuscular HGB Conc 30.5 g/dL (31.8-35.4); Mean Corpuscular Hemoglobin 25.1 pg (27.0-31.2); Mean Corpuscular Volume 82.3 fl (80-94); Mean Platelet Volume 8.6 fl (7.4-10.4); Monocytes # 0.8 K/mm3 (0.1-1.0); Neutrophils # 11.9 K/mm3 (1.8-7.8); Neutrophils % 78.4 % (37.0-80.0); Platelet Count 344 K/mm3 (142-424); Red Blood Count 3.77 M/mm3 (4.60-6.20); Red Cell Distribution Width 16.8 % (11.5-17.5); White Blood Count 15.2 K/mm3 (4.8-10.8)
[2022-05-02 08:20] LABS: Eosinophils % 2 % (0-3); Lymphocytes % 10 % (10-50); Monocytes % 5 % (2-9); Neutrophils % 83 % (42-76); Platelet Estimate Normal; RBC Morphology Normal; Total Cells Counted 100
[2022-05-02 08:33] LABS: Alanine Aminotransferase 38 U/L (12-78); Albumin Level 2.1 g/dl (3.5-5.0); Albumin/Globulin Ratio 0.7 (1.1-1.8); Alkaline Phosphatase 147 U/L (38-126); Aspartate Amino Transferase 42 U/L (17-59); Bilirubin,Total 0.4 mg/dl (0.2-1.3); Blood Urea Nitrogen 28 mg/dl (9-20); Calcium 7.9 mg/dl (8.4-10.2); Carbon Dioxide 21 mmol/L (22.0-30.0); Chloride 118 mmol/L (98-107); Creatinine Clearance Estimated 30 mL/min (50-200); Estimated Glomerular Filt Rate 63 ml/min (>60); GFR (African American) 77 ML/MIN (>60); Globulin 3.2 g/dL (1.3-3.2); Glucose 128 mg/dl (74-100); Sodium 145 mmol/L (136-145); Total Protein,Serum 5.3 g/dl (6.3-8.2)
--- NOTE | 2022-05-02 08:50 | EXP.ACUTE.PN ---
Subjective *Date: 05/02/22 *Time: 08:50 Interval history: Family states patient didn't feel well yesterday afternoon. Medical Exam Vital signs and Labs for Last 24 Hours: Vital Signs Temp Pulse Pulse Resp BP Pulse Ox 05/02/22 08:00 93 L 05/02/22 06:56 68 05/02/22 06:56 71 05/02/22 04:00 97.6 F 88 18 130/72 91 L 05/02/22 00:00 98.9 F 58 L 20 130/68 92 L 05/01/22 20:00 91 L 05/01/22 20:00 98.3 F 55 L 20 142/98 H 91 L 05/01/22 20:27 73 05/01/22 20:27 77 05/01/22 15:52 97.7 F 104 H 20 121/60 97 05/01/22 14:15 78 05/01/22 14:15 78 05/01/22 11:44 97.7 F 100 H 22 110/58 L 95 05/01/22 10:10 97 H 05/01/22 10:10 91 H Intake and Output 05/01/22 05/02/22 05/02/22 23:59 07:59 15:59 Intake Total 774 / 1850 755 / 755 Output Total 0 / 0 0 / 0 Balance 774 / 1850 755 / 755 Intake: Intake, Tube Feeding Amount 579 / 1003 469 / 469 Intake, Tube Irrigant Amount 195 / 325 196 / 196 Intake, Other Amount 90 / 90 Output: Output, Urine Amount 0 / 0 0 / 0 Other: Intake, Other Source Saline Solution Number of Unmeasured Voids 0 1 Number of Bowel Movements 1 Weight 96 lb 7 oz Patient Weight 05/02/22 23:59 Weight 96 lb 7 oz Laboratory Results - last 24 hr 05/02/22 08:00: WBC 15.2 H D, RBC 3.77 L, Hgb 9.5 L, Hct 31.1 L, MCV 82.3, MCH 25.1 L, MCHC 30.5 L, RDW 16.8, Plt Count 344, MPV 8.6, Neut % (Auto) 78.4, Lymph % (Auto) 14.8, [place] % (Auto) 5.0, Eos % (Auto) 1.4, Baso % (Auto) 0.4, Neut # (Auto) 11.9 H, Lymph # (Auto) 2.3, [place] # (Auto) 0.8, Eos # (Auto) 0.2, Baso # (Auto) 0.1, Total Counted 100, Neutrophils % (Manual) 83 H, Lymphocytes % (Manual) 10, Monocytes % (Manual) 5, Eosinophils % (Manual) 2, Platelet Estimate Normal, RBC Morphology Normal 05/02/22 08:00: Sodium 145, Potassium 4.0, Chloride 118 H, Carbon Dioxide 21 L, Anion Gap 10.0, BUN 28 H D, Creatinine 1.10 D, Estimated Creat Clear 30, Estimated GFR 63, Est GFR ( Amer) 77 D, Glucose 128 H, Calcium 7.9 L, Total Bilirubin 0.4, AST 42 D, ALT 38 D, Alkaline Phosphatase 147 H, Total Protein 5.3 L, Albumin 2.1 L, Globulin 3.2, Albumin/Globulin Ratio 0.7 L I & O for Labs for Last 24 Hours: Intake & Output 04/29/22 04/30/22 05/01/22 05/02/22 23:59 23:59 23:59 23:59 Intake Total 3083 / 5250 3682 / 3682 1850 / 1850 755 / 755 Output Total 120 / 120 0 / 0 0 / 0 0 / 0 Balance 2963 / 5130 3682 / 3682 1850 / 1850 755 / 755 Weight 93 lb 1.6 oz 94 lb 3.2 oz 104 lb 6.4 oz 96 lb 7 oz Constitutional: Present thin and cachectic Respiratory: Present CTA bilaterally and diminished air movement Cardiac: Present Reg Rate and Rhythm GI: Present soft and tenderness (only around G-tube site); Absent distention or guarding Extremities: Absent edema Skin: Present pallor Neuro: Present alert and awake Assessment and Plan *Assessment and plan (1) Pneumonia: Status: Acute Category: Medical Code(s): J18.9 - Pneumonia, unspecified organism (2) Severe sepsis: Status: Acute Category: Medical Code(s): A41.9 - Sepsis, unspecified organism; R65.20 - Severe sepsis without septic shock (3) Hypothyroidism: Status: Acute Category: Medical Code(s): E03.9 - Hypothyroidism, unspecified (4) Hypertension: Status: Chronic Qualifiers: Hypertension type: primary hypertension Qualified Code(s): I10 - Essential (primary) hypertension Category: Medical Code(s): I10 - Essential (primary) hypertension (5) Hearing deficit: Status: Chronic Qualifiers: Hearing loss type: unspecified Laterality: unspecified laterality Qualified Code(s): H91.90 - Unspecified hearing loss, unspecified ear Category: Medical Code(s): H91.90 - Unspecified hearing loss, unspecified ear (6) Malnutrition: Status: Acute Qualifiers: Malnutritio
--- NOTE | 2022-05-02 10:47 | P.PN_ITS ---
Subjective Patient reports: no new complaints Exam Data for Last 24 hours Vital signs and Labs for Last 24 Hours: Temp Pulse Resp BP Pulse Ox 98.7 F 78 16 123/74 96 05/02/22 08:00 05/02/22 10:27 05/02/22 08:00 05/02/22 08:00 05/02/22 08:00 Laboratory Results - last 24 hr 05/02/22 08:00: WBC 15.2 H D, RBC 3.77 L, Hgb 9.5 L, Hct 31.1 L, MCV 82.3, MCH 25.1 L, MCHC 30.5 L, RDW 16.8, Plt Count 344, MPV 8.6, Neut % (Auto) 78.4, Lymph % (Auto) 14.8, [place] % (Auto) 5.0, Eos % (Auto) 1.4, Baso % (Auto) 0.4, Neut # (Auto) 11.9 H, Lymph # (Auto) 2.3, [place] # (Auto) 0.8, Eos # (Auto) 0.2, Baso # (Auto) 0.1, Total Counted 100, Neutrophils % (Manual) 83 H, Lymphocytes % (Manual) 10, Monocytes % (Manual) 5, Eosinophils % (Manual) 2, Platelet Estimate Normal, RBC Morphology Normal 05/02/22 08:00: Sodium 145, Potassium 4.0, Chloride 118 H, Carbon Dioxide 21 L, Anion Gap 10.0, BUN 28 H D, Creatinine 1.10 D, Estimated Creat Clear 30, Estimated GFR 63, Est GFR ( Amer) 77 D, Glucose 128 H, Calcium 7.9 L, Total Bilirubin 0.4, AST 42 D, ALT 38 D, Alkaline Phosphatase 147 H, Total Protein 5.3 L, Albumin 2.1 L, Globulin 3.2, Albumin/Globulin Ratio 0.7 L I & O for Last 24 hours: Intake & Output 04/29/22 04/30/22 05/01/22 05/02/22 11:59 11:59 11:59 11:59 Intake Total 1859 / 1859 3391 / 3391 2591 / 2591 1529 / 1529 Output Total 120 / 120 0 / 0 0 / 0 0 / 0 Balance 1739 / 1739 3391 / 3391 2591 / 2591 1529 / 1529 Weight 93 lb 1.6 oz 94 lb 3.2 oz 104 lb 6.4 oz 96 lb 7 oz *Routine Abdominal Exam Comments: PEG tube site itself appears to be intact. There is leakage from connection of tube feeds. 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 Tube flushes without difficulty. (19) Gastrostomy tube in place: Status: Acute
--- NOTE | 2022-05-02 16:52 | DIET.NUTRFU ---
Patient continues to tolerate TF at goal rate of 40ml/hr providing 100% of nutritional needs. IVF was discontinued. Daily BM noted. Renal improving. Na slighty increasing to 145, will incrase flush to 80m Q4H= 480ml+219=3570tl/day which is 29ml/kg.
--- NOTE | 2022-05-02 23:04 | PC.NURSE ---
Courtesy Round Patient sleeping at this time on right side . Trash and linens emptied. Call light within reach of patient.
[2022-05-03] VITALS (8 sets, daily range): BP systolic 116–145; BP diastolic 61–78; PULSE 78–115; RESP 16–22; TEMP 36.6–36.9; O2SAT 90–96
--- NOTE | 2022-05-03 04:04 | PC.NURSE ---
Pt. tolerating tube feed rate of 40 ml/hr with 0 residuals. Pt. is A&O only to person, cooperative and follows commands. Abdominal binder in place. turned q2hrs.
[2022-05-03 07:27] LABS: Basophils % 0.3 % (0.1-2.0); Eosinophils # 0.3 K/mm3 (0.0-0.4); Eosinophils % 2.6 % (0.1-12.0); Hemoglobin 9.1 g/dL (14.1-18.0); Lymphocytes % 16.6 % (10-50); Mean Corpuscular HGB Conc 30.3 g/dL (31.8-35.4); Mean Corpuscular Hemoglobin 25.1 pg (27.0-31.2); Mean Corpuscular Volume 82.6 fl (80-94); Mean Platelet Volume 8.6 fl (7.4-10.4); Monocytes # 0.5 K/mm3 (0.1-1.0); Monocytes % 4.3 % (1.7-9.3); Neutrophils # 8.9 K/mm3 (1.8-7.8); Neutrophils % 76.1 % (37.0-80.0); Platelet Count 317 K/mm3 (142-424); Red Blood Count 3.63 M/mm3 (4.60-6.20); Red Cell Distribution Width 16.9 % (11.5-17.5); White Blood Count 11.7 K/mm3 (4.8-10.8)
[2022-05-03 07:36] LABS: Anion Gap 10.7 mEq/L (5-15); Blood Urea Nitrogen 27 mg/dl (9-20); Calcium 8.1 mg/dl (8.4-10.2); Carbon Dioxide 24 mmol/L (22.0-30.0); Chloride 114 mmol/L (98-107); Creatinine Clearance Estimated 30 mL/min (50-200); Estimated Glomerular Filt Rate 63 ml/min (>60); GFR (African American) 77 ML/MIN (>60); Glucose 119 mg/dl (74-100); Potassium 3.7 mmoL/L (3.5-5.1); Sodium 145 mmol/L (136-145)
--- NOTE | 2022-05-03 07:51 | EXP.ACUTE.PN ---
Subjective *Date: 05/03/22 *Time: 07:51 Interval history: Tolerating tube feedings and is at goal. Patient denies any pain and shortness of breath. He is voiding and bowels have moved. He has not been out of bed. He ask when he can go home. White blood cell count is better today with a stable H&H at 9.1 and 30. Renal function is stable with a normal creatinine. Urine and blood cultures are negative. Medical Exam Vital signs and Labs for Last 24 Hours: Vital Signs Temp Pulse Pulse Resp BP Pulse Ox 05/03/22 06:06 100 H 05/03/22 06:06 102 H 05/03/22 03:51 97.9 F 115 H 22 127/68 94 L 05/02/22 23:57 107 H 22 101/62 L 93 L 05/02/22 20:00 97 05/02/22 19:25 98.0 F 103 H 20 115/81 92 L 05/02/22 16:00 99.5 F 101 H 18 108/45 L 90 L 05/02/22 11:24 98.2 F 52 L 18 118/60 71 L 05/02/22 10:27 78 05/02/22 10:27 84 05/02/22 08:00 98.7 F 113 H 16 123/74 96 05/02/22 08:00 93 L Intake and Output 05/02/22 05/03/22 05/03/22 19:59 03:59 11:59 Intake Total 493 / 493 450 / 943 Output Total 0 / 0 0 / 0 0 / 0 Balance 493 / 493 450 / 943 0 / 943 Intake: Intake, Tube Feeding Amount 363 / 363 320 / 683 Intake, Tube Irrigant Amount 130 / 130 130 / 260 Output: Output, Urine Amount 0 / 0 0 / 0 0 / 0 Other: Number of Unmeasured Voids 1 1 1 Number of Bowel Movements 1 Laboratory Results - last 24 hr 05/02/22 08:00: WBC 15.2 H D, RBC 3.77 L, Hgb 9.5 L, Hct 31.1 L, MCV 82.3, MCH 25.1 L, MCHC 30.5 L, RDW 16.8, Plt Count 344, MPV 8.6, Neut % (Auto) 78.4, Lymph % (Auto) 14.8, [place] % (Auto) 5.0, Eos % (Auto) 1.4, Baso % (Auto) 0.4, Neut # (Auto) 11.9 H, Lymph # (Auto) 2.3, [place] # (Auto) 0.8, Eos # (Auto) 0.2, Baso # (Auto) 0.1, Total Counted 100, Neutrophils % (Manual) 83 H, Lymphocytes % (Manual) 10, Monocytes % (Manual) 5, Eosinophils % (Manual) 2, Platelet Estimate Normal, RBC Morphology Normal 05/02/22 08:00: Sodium 145, Potassium 4.0, Chloride 118 H, Carbon Dioxide 21 L, Anion Gap 10.0, BUN 28 H D, Creatinine 1.10 D, Estimated Creat Clear 30, Estimated GFR 63, Est GFR ( Amer) 77 D, Glucose 128 H, Calcium 7.9 L, Total Bilirubin 0.4, AST 42 D, ALT 38 D, Alkaline Phosphatase 147 H, Total Protein 5.3 L, Albumin 2.1 L, Globulin 3.2, Albumin/Globulin Ratio 0.7 L 05/03/22 06:53: WBC 11.7 H, RBC 3.63 L, Hgb 9.1 L, Hct 30.0 L, MCV 82.6, MCH 25.1 L, MCHC 30.3 L, RDW 16.9, Plt Count 317, MPV 8.6, Neut % (Auto) 76.1, Lymph % (Auto) 16.6, [place] % (Auto) 4.3, Eos % (Auto) 2.6, Baso % (Auto) 0.3, Neut # (Auto) 8.9 H, Lymph # (Auto) 2.0, [place] # (Auto) 0.5, Eos # (Auto) 0.3, Baso # (Auto) 0.0 05/03/22 06:53: Sodium 145, Potassium 3.7, Chloride 114 H, Carbon Dioxide 24, Anion Gap 10.7, BUN 27 H, Creatinine 1.10, Estimated Creat Clear 30, Estimated GFR 63, Est GFR ( Amer) 77, Glucose 119 H, Calcium 8.1 L I & O for Labs for Last 24 Hours: Intake & Output 04/30/22 05/01/22 05/02/22 05/03/22 11:59 11:59 11:59 11:59 Intake Total 3391 / 3391 2591 / 2591 1529 / 1529 943 / 943 Output Total 0 / 0 0 / 0 0 / 0 0 / 0 Balance 3391 / 3391 2591 / 2591 1529 / 1529 943 / 943 Weight 94 lb 3.2 oz 104 lb 6.4 oz 96 lb 7 oz Microbiology Reports for the Last 24 Hours: Microbiology 04/28/22 07:30 Blood Blood Culture - Final NO GROWTH AFTER 5 DAYS 04/28/22 07:26 Blood Blood Culture - Final NO GROWTH AFTER 5 DAYS Respiratory: Present rhonchi (Few scattered rhonchi with good air exchange posteriorly) Cardiac: Present Irregularly Regular GI: Present soft; Absent distention or tenderness Extremities: Absent edema or calf tenderness Skin: Present dry and rash (Erythemic papular crusty rash around G-tube site) Neuro: Present alert Comment:: Speech is slurred and sometimes difficult to understand Assessment and Plan *Assessment and plan (1) Pneumonia: Status: Acute Category: Medical
--- NOTE | 2022-05-03 10:32 | ECG_ITS ---
APPROVED REPORT Exam: Resting ECG HR:103 bpm ECG Measurements Heart Rate 103 AXES OH 218 P 64 QRSd 135 QRS -56 QT 369 T 83 QTc 428 Conclusion SINUS TACHYCARDIA WITH FIRST DEGREE AV BLOCK RIGHT BUNDLE BRANCH BLOCK [120+ ms QRS DURATION, UPRIGHT V1, 40+ ms S IN I/aVL/V4/V5/V6] LEFT ANTERIOR FASCICULAR BLOCK [QRS AXIS <= -45, QR IN I, RS IN II] LEFT VENTRICULAR HYPERTROPHY AND ST-T CHANGE [VOLTAGE CRITERIA PLUS ST/T ABNORMALITY] POSSIBLE SEPTAL MYOCARDIAL INFARCTION , OF INDETERMINATE AGE [30 ms Q WAVE IN V1/V2] ABNORMAL ECG UNCONFIRMED REPORT Electronically signed by : Booker Santiago MD 05/04/2022 03:01:03
--- NOTE | 2022-05-03 11:53 | HMH.OTEV ---
OT Inpatient Evaluation Rehab OT IP Evaluation Start: 05/03/22 10:32 Freq: ONCE Status: Active Protocol: Document 05/03/22 11:47 JESUS (Rec: 05/03/22 11:52 JESUS [id number]) Rehab OT IP Assessment Subjective History Mr. Singh is an 87-year- old male with past medical history to include coronary artery disease, arthritis, hypertension, esophageal diverticulum, hypothyroidism, and failure to thrive in adult who was last seen in the office of [facility] in September 2021.. He presented to [facility] emergency room with 1 day of coughing which was productive and episode of nausea and vomiting after this. He did not have any any fever. He also had some mild chest and abdominal pain. Patient lives in 1 story home with 2-3 MARTA with . Patient uses RW to ambulate within home. participates in all ADLs. verbalize that patient is incontinet of bowel and bladder mgt tr. However Patient is able to complete bed mobility and transfers independently with RW. Subjective I can try. Instructed Patient on proper hand and foot placement to complete supine->sit @ EOB requiring Mod A. Patient sat up at EOB SBA. No LOB noted up to 5 mins . Patient able to maneuver B UE WFL. Patient requested to lay back in bed requiring Mod A. Patient required Max A x2 to reposition self. Objective Patient Orientation Person,Name Upper Extremity Gross ROM WFL Bed Mobility bed mobility - supine/sit Assist Level Moderate x 1 (50% assist) Rehab OT IP prob,goals,plan Problems Date of Evaluation: 05/03/22 OT IP Problems
--- NOTE | 2022-05-03 14:26 | HMH.PTEV ---
Physical Therapy Evaluation Rehab PT IP Evaluation Start: 05/03/22 10:32 Freq: .once Status: Active Protocol: Document 05/03/22 14:17 PHORNE (Rec: 05/03/22 14:26 PHORNE [id number]) Subjective/History History History 87 yowm adm to [facility] with sepsis and possible PNA and likely dehydration. B buttock IT pressure wounds noted upon admission and continue to evolve. He lives with spouse with significant family support, PEG tube for all feeding and fluids, and he requires assist with all ADLs. reports he stays in bed most of the time, and requires assist with transfers . Subjective Subjective Currently pt has no c/o pain, agrees to stand at mobility assessment. Rehab PT IP Eval Objective Appearance Patient Behavior Appropriate Patient Orientation Person Difficulty following instructions mild Speech Pattern Garbled,Patient Baseline Ambulation Patient Able to Ambulate No Balance Ability to Arise Able, uses arms to help Sitting Balance Steady, safe Standing Balance Unsteady Dynamic Sitting Balance Ability Fair Dynamic Standing Balance Ability Poor Transfers Bed Transfer Ability Minimal x 1 (25% assist) Chair Transfer Ability Moderate x 1 (50% assist) Sit to Stand Bed Transfer Ability Moderate x 1 (50% assist) Sit to Stand Chair Transfer Ability Moderate x 1 (50% assist) Rehab PT IP prob,goals,plan Problems Date of Evaluation: 05/03/22 PT IP Problems Bed Mobility,Transfers,Gait Rehab Potential Rehab Potential Fair Plan PT Intervention Plan Bed Mobility,Transfers,Gait, Therapeutic Exercise PT Plan Frequency BID Discharge Goals Bed Transfer Ability Contact Guard/Hand Hold Sit to Stand Chair Transfer Ability Minimal x 2 (25% assist) Ambulation Assistive Device Rolling Walker Ambulation Distance (feet) 3 Discharge Plan PT Discharge Plan Pt is most appropriate for rehab placement at this time. If pt/family refuse rehab placement he will require 24 hr assistance at home and will be at increased risk for
--- NOTE | 2022-05-03 15:50 | PC.NURSE ---
Resting well in bed. Tolerating tube feeding well. Lung sounds clear with minimal, scattered rhonchi. Bowel sounds active. Verbally interactive with staff. Denies pain.
--- NOTE | 2022-05-03 19:25 | PC.NURSE ---
PT LEFT FLOOR WITH EMS AT THIS TIME
--- NOTE | 2022-05-04 14:24 | CARE MANAGER ---
Contacted patient's related to hospital discharge. Patient is doing better. They are aware home health will be following up. They have picked up his medications and are aware of follow up appointment. YOU Yuan
--- NOTE | 2022-05-09 15:11 | EXP.DC.SUM ---
General Admission date:: 04/28/22 Discharge date: 05/03/22 HPI HPI HPI: Mr. Singh is an 87-year-old male with past medical history to include coronary artery disease, arthritis, hypertension, esophageal diverticulum, hypothyroidism, and failure to thrive in adult who was last seen in the office of [facility] in September 2021..? He presented to [facility] emergency room with 1 day of coughing which was productive and episode of nausea and vomiting after this.? He did not have any any fever. He also had some mild chest and abdominal pain.? With evaluation in the emergency room white count was elevated at 11,000 with a hemoglobin of 9.7 hematocrit of 31.6.? Potassium was elevated at 5.7 with a BUN of 67 and creatinine of 2.4.? Lactate also was elevated at 2.9.? Troponin I was elevated at 0.04. He was started on Rocephin and Zithromax and given a liter of IV fluids. Chest x-ray showed chronic appearing findings.? Abdominal/pelvis CT revealed the following: FINDINGS: ABDOMEN:? There is scarring at the lung bases.? Note is made of moderate bronchiectasis in the right lower lobe.? The liver parenchyma is homogeneous.? The heart size is normal.? The gallbladder is present.? Gastrostomy feeding tube is seen in the stomach.? The spleen is normal.? No adrenal mass is identified. The aorta is normal in caliber.? There is no significant free fluid or adenopathy.? There is no nephrolithiasis.? There is no hydronephrosis.? PELVIS: The appendix is not identified.? There is marked gaseous distension of the rectum measuring 9.6 cm in diameter.? The urinary bladder is incompletely distended. Streak artifact is seen from orthopedic hardware in the right femur.? There is no significant free fluid or adenopathy. IMPRESSION: Moderate bronchiectasis in the right lower lobe.? ? Marked gaseous distension of the rectum. At time of this exam son is in room and gives some information.? who is his primary caregiver has gone home for a little while and will be back.? She gives all his feedings per G tube.? Apparently he is unable to swallow and usually spits up what ever he takes orally. Patient has previously been able to walk with a walker? .He was also seen in the emergency room on 2022 after a fall.? Feeding tube had also been accident gently pulled out by caregiver when adjusting his bed covering.? After the fall he did complain of left hip pain.? On this ER admission white blood cell count was 15,400.? Potassium was 5.2.? BUN was 47 and creatinine was 1.10.? TSH was 9.34.? Gastrostomy tube was replaced. Pelvic x-ray on this date showed newly visible right pubic Akil deformity suspicious for possible fracture.? Cervical CT showed no definite cervical spinal fracture..? Chest x-ray revealed bilateral perihilar interstitial infiltrates.? CT of the head revealed no acute intracranial abnormality. Patient indicates he has discomfort periumbilical.? He denies shortness of breath and chest pain.? He is extremely hard of hearing. Hospital Course Hospital Course Hospital Course: The patient was started on gentle IV hydration and DuoNebs. Oral suction was ordered as needed. Zithromax and Rocephin were initiated for probable pneumonia. It was felt the patient would need PT and OT evaluation as well as a care management consult. Tube feedings were restarted and dietary was consulted. His TSH was elevated and his levothyroxine was increased to 75 mg daily. His white blood cell count normalized and his H&H decreased with hydration. His renal function improved. His UA showed a possible UTI but his urine and blood cultures were still pending. Dr. Hayes was consulted to evaluate his G-tube site. Dr. Hayes saw the patient and pulled the gastrostomy tube back into the appropriate position and the surrounding hub was secured more tightly to the tube utilizing silk ties. After this, there was significant decrease in leakage around the G-tube site.
== END 2022-05-03 19:25 | disposition home health service (06) | DRG 871 ==
LOC: ER 08:48 → 2ND 10:32
PROVIDERS: Emergency Medicine; Family Medicine; Admitting Provider Family Medicine; Emergency Provider Emergency Medicine; PCP Family Medicine; Visit Provider Family Medicine
DX: A41.9 Sepsis, unspecified organism (principal); J18.9 Pneumonia, unspecified organism; R65.21 Severe sepsis with septic shock; E46 Unspecified protein-calorie malnutrition; I42.9 Cardiomyopathy, unspecified; N17.9 Acute kidney failure, unspecified; N39.0 Urinary tract infection, site not specified; Z20.822 Contact with and (suspected) exposure to COVID-19; E03.9 Hypothyroidism, unspecified; I25.10 Atherosclerotic heart disease of native coronary artery without angina pectoris; Z95.0 Presence of cardiac pacemaker; Z43.4 Encounter for attention to other artificial openings of digestive tract; L89.152 Pressure ulcer of sacral region, stage 2; Z95.1 Presence of aortocoronary bypass graft; K94.29 Other complications of gastrostomy; Y83.3 Surgical operation with formation of external stoma as the cause of abnormal reaction of the patient, or of later complication, without mention of misadventure at the time of the procedure; I48.91 Unspecified atrial fibrillation; L30.3 Infective dermatitis; I11.0 Hypertensive heart disease with heart failure; I50.9 Heart failure, unspecified
CPT/HCPCS: 36415; 71045; 74176; 80048; 80053; 80061; 81001; 83605; 83735; 84100; 84145; 84484; 85007; 85025; 85651; 86140; 87040; 87086; 93005; 94640; 97110; 97163; 97165; 99285; C9803; J0131; J0456; J0696; J1956; U0003; U0005

== ENCOUNTER 2022-08-14 19:58 | Observation (INO) | payer MEDICARE, SELFPAY ==
[2022-08-14] VITALS (8 sets, daily range): BP systolic 99–140; BP diastolic 60–78; PULSE 66–104; RESP 22; TEMP 36.6; O2SAT 95–100; BMI 14.4
--- NOTE | 2022-08-14 20:28 | CT_ITS ---
PROCEDURE INFORMATION: Exam: CT Abdomen And Pelvis With Contrast Exam date and time: 08/14/2022 9:22 PM Age: 87 years old Clinical indication: Other: Gi bleed TECHNIQUE: Imaging protocol: Computed tomography of the abdomen and pelvis with contrast. Radiation optimization: All CT scans at this facility use at least one of these dose optimization techniques: automated exposure control; mA and/or kV adjustment per patient size (includes targeted exams where dose is matched to clinical indication); or iterative reconstruction. Contrast material: ISOVUE; Contrast volume: 75 ml; Contrast route: IV; REPORTING DATA: Count of CT and Cardiac NM exams in prior 12 months: This patient has received 3 known CTs and 0 known cardiac nuclear medicine studies in the 12 months prior to the current study. COMPARISON: CT ABDOMEN PELVIS WO CON 04/28/2022 8:13 AM FINDINGS: Tubes, catheters and devices: Pacer leads in the right atrium and right ventricle. G-tube in position. Pleural spaces: Trace right pleural effusion. Heart: Heart is large in size. Mediastinal space: Thickened distal esophagus. Liver: Normal. No mass. Gallbladder and bile ducts: Normal. No calcified stones. No ductal dilation. Pancreas: Normal. No ductal dilation. Spleen: Normal. No splenomegaly. Adrenal glands: Normal. No mass. Kidneys and ureters: Left kidney scarring. Stomach and bowel: Stomach moderately distended by fluid. Large amount of inspissated stool in the rectum which is distended measuring 9 cm transverse. [id number] amount of stool in the colon. Fluid-filled nondistended small bowel loops. Diverticulosis. Appendix: Appendix not seen. Intraperitoneal space: Unremarkable. No free air. No significant fluid collection. Vasculature: Atherosclerosis. Lymph nodes: Unremarkable. No enlarged lymph nodes. Urinary bladder: Unremarkable as visualized. Reproductive: Unremarkable as visualized. Bones/joints: DJD. Soft tissues: Unremarkable. IMPRESSION: 1. Rectum impacted and distended by inspissated stool. Constipation pattern. No obvious signs of active bleeding. 2. There is thickened appearance of the esophagus which could be due to esophagitis or infiltrating tumor. Recommend follow-up.
--- NOTE | 2022-08-14 20:36 | HMH.EDABDPAI ---
Discharge Plan Disposition Patient Disposition: Admitted Chief Complaint: Abdominal Pain Prescriptions Prescriptions: No Action aspirin [Marylou Low Dose Aspirin] 81 mg tablet,delayed release (DR/EC) 81 mg PO DAILY amlodipine 2.5 mg tablet 2.5 mg PO DAILY Patient Comments: TAKE ONE TABLET BY MOUTH EVERY DAY atorvastatin 20 MG tablet 20 mg PO HS metoprolol succinate 25 MG tablet extended release 24 hr 25 mg PO DAILY levothyroxine 50 MCG tablet 50 mcg PO DAILYDM sertraline 25 MG tablet 25 mg PO DAILY levofloxacin 500 mg tablet 500 mg PO DAILY 7 Days Qty: 7 0RF Referrals Follow up/Referrals: Javier Bains MD [Primary Care Provider] - See instructions Clinical Impressions Clinical Impression: Acute upper gastrointestinal bleeding, Esophagitis, Acute UTI (urinary tract infection), Severe sepsis with acute organ dysfunction Instructions Patient Instructions: DI for Acute Abdominal Pain Discharge ED Provider: Lyric (ED),Tayo Weaver Abdominal Pain HPI General Chief Complaint: Abdominal Pain Stated Complaint: feeding tube is discharging dark liquid Time Seen by Provider: 08/14/22 20:36 Mode of Arrival: Wheelchair Source of Information: Patient, Relative and Medical Record Limitations: [facility] Description of Symptoms (Recalled from ER Triage Doc. by RN): Family states they fed pt through his peg tube around 1730 and an hour later he had coffee ground emesis. Pt is complaining of pain around peg site that was placed one yr ago. History of Present Illness HPI narrative: pt with peg tube and is having coffee grd emesis - no sig abd pain - peg x 1 yr - no fever or other c/o complaint: other (emesis ) Onset (ago): hour(s) Consistency: intermittent Severity: moderate Associated symptoms: denies other symptoms Related Data Home Medications Medication Instructions Recorded Confirmed atorvastatin 20 mg tablet 20 mg PO HS Cholesterol 02/28/21 08/14/22 metoprolol succinate 25 mg 25 mg PO DAILY High blood pressure 02/28/21 08/14/22 tablet,extended release 24 hr aspirin 81 mg tablet,delayed 81 mg PO DAILY heart health 04/14/21 08/14/22 release (Marylou Low Dose Aspirin) levothyroxine 50 mcg tablet 50 mcg PO DAILYDM thyroid 05/20/21 08/14/22 sertraline 25 mg tablet 25 mg PO DAILY Depression 05/20/21 08/14/22 amlodipine 2.5 mg tablet 2.5 mg PO DAILY afib 08/14/22 08/14/22 Previous Rx's Medication Instructions Recorded levofloxacin 500 mg tablet 500 mg PO DAILY infection 7 days 05/03/22 #7 tabs Allergies Allergy/AdvReac Type Severity Reaction Status Date / Time Penicillins Allergy Unknown Verified 07/29/21 14:19 [facility] Disclaimer: The information contained in this section may have been updated after the patient was seen, as this information can be updated by other users. Medical History (Updated 08/14/22 @ 23:13 by Tayo Gunter (ED)MD) Abnormal electrocardiography Acute esophageal obstruction CAD (coronary artery disease) Cardiomyopathy Esophageal diverticulum Failure to thrive in adult Gastrojejunostomy tube dislodgement Gastrostomy tube in place Hearing deficit History of hip fracture History of pacemaker Hypertension Hypothyroidism Malnutrition Surgical History (Updated 04/28/22 @ 14:07 by Li Powers APRN) Hx of CABG Family History (Updated 04/28/22 @ 14:08 by Li Powers APRN) Other Coronary artery disease Hypertension Stroke Social History (Updated 04/28/22 @ 14:47 by Zakiya Sánchez RN) Smoking Status: Never smoker alcohol intake: never substance use type: denies use current occupational status: retired Travel in the last 8 weeks: None household members: spouse housing: house caffeine: Yes ROS Obtained: Yes All systems reviewed & no additional complaints except as documented Physical Exam General General appearance: alert Head Head exam: normocephalic Eye Eye exam: Present
[2022-08-14 20:51] LABS: Occult Blood,Gastric Fluid Positive (Negative)
[2022-08-14 20:51] LABS: Coronavirus 19, PCR Not Detected (NotDetected); Influenza A, PCR Not Detected (NotDetected); Influenza B, PCR Not Detected (NotDetected)
[2022-08-14 20:52] LABS: Alanine Aminotransferase 30 U/L (12-78); Albumin Level 3.9 g/dl (3.5-5.0); Albumin/Globulin Ratio 0.8 (1.1-1.8); Alkaline Phosphatase 134 U/L (38-126); Anion Gap 17.2 mEq/L (5-15); Aspartate Amino Transferase 39 U/L (17-59); Basophils # 0.1 K/mm3 (0-0.2); Basophils % 0.4 % (0.1-2.0); Bilirubin,Total 0.3 mg/dl (0.2-1.3); Blood Urea Nitrogen 46 mg/dl (9-20); Calcium 9.6 mg/dl (8.4-10.2); Carbon Dioxide 26 mmol/L (22.0-30.0); Chloride 94 mmol/L (98-107); Creatinine Clearance Estimated 32 mL/min (50-200); Eosinophils % 0.3 % (0.1-12.0); Estimated Glomerular Filt Rate 80 ml/min (>60); GFR (African American) 97 ML/MIN (>60); Globulin 5.2 g/dL (1.3-3.2); Glucose 173 mg/dl (74-100); Hematocrit 41.6 % (42.0-52.0); Hemoglobin 12.5 g/dL (14.1-18.0); Lymphocytes # 1.6 K/mm3 (0.7-4.5); Lymphocytes % 13.1 % (10-50); Mean Corpuscular HGB Conc 30.1 g/dL (31.8-35.4); Mean Corpuscular Volume 86.5 fl (80-94); Mean Platelet Volume 7.6 fl (7.4-10.4); Monocytes # 0.7 K/mm3 (0.1-1.0); Neutrophils # 9.9 K/mm3 (1.8-7.8); Neutrophils % 80.2 % (37.0-80.0); Platelet Count 378 K/mm3 (142-424); Potassium 4.2 mmoL/L (3.5-5.1); Red Blood Count 4.81 M/mm3 (4.60-6.20); Red Cell Distribution Width 17.4 % (11.5-17.5); Sodium 133 mmol/L (136-145); Total Protein,Serum 9.1 g/dl (6.3-8.2); White Blood Count 12.3 K/mm3 (4.8-10.8)
[2022-08-14 21:01] LABS: Microscopic, Urine URINE MICROSCOPIC (MICROSCOPIC)
--- NOTE | 2022-08-14 21:02 | PC.NURSE ---
PT RESTING IN BED NOTHING NEEDED AT THIS TIME, FAMILY AT BS
[2022-08-14 21:03] LABS: Appearance,Urine SL CLOUDY (Clear); Bilirubin,Urine Negative (Negative); Blood, Urine 1+ (Negative); Color,Urine YELLOW (Yellow); Glucose,Urine (UA) Negative (Negative); Ketones,Urine Negative (Negative); Leukocyte Esterase,Urine 3+ (Negative); Nitrate,Urine Negative (Negative); PH,Urine 5.5 (5.0-8.5); Protein,Urine Negative (Negative); Specific Gravity, Urine 1.015 (1.005-1.030); Urobilinogen,Urine 0.2 EU/dl (0.2)
[2022-08-14 21:14] LABS: Bacteria,Urine 3+ /lpf; RBC,Urine Occasional #/hpf (0-3); Squamous Epithelial Cell,Urine Occasional #/hpf (0-5); WBC,Urine 20-50 #/hpf (0-3)
--- NOTE | 2022-08-14 22:22 | XR_ITS ---
PROCEDURE INFORMATION: Exam: XR Chest Exam date and time: 08/14/2022 10:23 PM Age: 87 years old Clinical indication: Pain; Chest pressure TECHNIQUE: Imaging protocol: Radiologic exam of the chest. Views: 1 view. COMPARISON: CR XR CHEST PORTABLE 04/28/2022 8:41 AM FINDINGS: Tubes, catheters and devices: Pacer leads in the right atrium and right ventricle. Lungs: Unremarkable. No consolidation. Pleural spaces: Unremarkable. No pleural effusion. No pneumothorax. Heart/Mediastinum: Heart is large in size. Bones/joints: There are median sternotomy wires. Other findings: Bilateral scarring and fibrotic like changes. IMPRESSION: No acute findings.
--- NOTE | 2022-08-14 22:27 | PC.NURSE ---
s/w Dr. Santiago for admission
[2022-08-14 22:32] LABS: Amylase 96 U/L (30-110); Lipase 131 U/L (23-300)
--- NOTE | 2022-08-14 22:52 | PC.NURSE ---
KARL AND RN LIZET AT DOING A BED CHANGE AND CLEANING PT UP
--- NOTE | 2022-08-14 23:52 | PC.NURSE ---
updated pt on pending room assignment
[2022-08-15] VITALS (11 sets, daily range): BP systolic 88–120; BP diastolic 51–76; PULSE 62–94; RESP 16–20; TEMP 35.6–37.3; O2SAT 91–100; BMI 16.0
--- NOTE | 2022-08-15 00:01 | PC.NURSE ---
Registration notified of admission. Pt assigned to room 206 for Urosepsis and GI bleed. Jack Bains. OBS
[2022-08-15 00:04] LABS: Reflex Lactic Add Lactic Reflex
--- NOTE | 2022-08-15 00:35 | PC.NURSE ---
called report to Marbella ORTA on 2nd floor
[2022-08-15 00:36] LABS: Lactic Acid Follow Up (RFLX 1) 1.5 mmol/L (0.7-2.1)
--- NOTE | 2022-08-15 00:43 | PC.NURSE ---
Pt arrived to the floor via stretcher @ 0423
--- NOTE | 2022-08-15 01:31 | PC.NURSE ---
spoke with lizett dias, she confirm DNR/DNI status and gave photo consent. verfied with Zakiya Hung RN. family will bring in pt home meds in AM.
--- NOTE | 2022-08-15 02:14 | PC.WOUNDNOTE ---
Addendum entered by Naman Wiggins RN 08/15/22 02:15: RIGHT LOWER BACK Original Note:
--- NOTE | 2022-08-15 07:32 | EXP.SURG.CON ---
History of Present Illness *Admission Date: 08/14/22 *Reason for visit:: Upper GI bleed *History of present illness: Patient is an 87-year-old male with history of arrhythmia, coronary artery disease, GERD, hyperlipidemia, hypertension, pacemaker, cardiomyopathy. He has a history of significant dysphagia and known large esophageal diverticulum noted after Dr. Hayes had performed previous upper endoscopies. Due to progressive dysphagia he had a PEG tube placed by Dr. Hayes on 05/20/2021 which was anchored at 1 cm. Patient did have dislodgment of the PEG tube on 04/19/2021 at which time it was replaced by the emergency department physician. Apparently patient was being fed through PEG tube yesterday evening and subsequently had some coffee-ground emesis. He has been having some pain around the PEG tube site. He was brought to the emergency department for evaluation. He was admitted to [facility] for inpatient for management of this problem as well as urinary tract infection treatment. CT scan was performed in the emergency department which revealed rectum impacted and distended within septated stool, no obvious signs of active bleeding, thickened appearance of the esophagus which could be due to esophagitis. Surgical consultation was ordered by the ER physician for upper GI bleed. [facility] Disclaimer: The information contained in this section may have been updated after the patient was seen, as this information can be updated by other users. Medical History Abnormal electrocardiography Acute esophageal obstruction CAD (coronary artery disease) Cardiomyopathy Esophageal diverticulum Failure to thrive in adult Gastrojejunostomy tube dislodgement Gastrostomy tube in place Hearing deficit History of hip fracture History of pacemaker Hypertension Hypothyroidism Malnutrition Surgical History Hx of CABG Family History Coronary artery disease Hypertension Stroke Social History (Updated 08/15/22 @ 01:40 by Naman Wiggins RN) Smoking Status: Never smoker alcohol intake: never substance use type: denies use current occupational status: retired Travel in the last 8 weeks: None household members: spouse housing: house caffeine: Yes Meds Home Medications and Allergies Home Medications Medication Instructions Recorded Confirmed Type atorvastatin 20 mg tablet 20 mg PO HS Cholesterol 02/28/21 08/14/22 History metoprolol succinate 25 mg 25 mg PO DAILY High blood pressure 02/28/21 08/14/22 History tablet,extended release 24 hr aspirin 81 mg tablet,delayed 81 mg PO DAILY heart health 04/14/21 08/14/22 History release (Marylou Low Dose Aspirin) levothyroxine 50 mcg tablet 50 mcg PO DAILYDM thyroid 05/20/21 08/14/22 History sertraline 25 mg tablet 25 mg PO DAILY Depression 05/20/21 08/14/22 History levofloxacin 500 mg tablet 500 mg PO DAILY infection 7 days 05/03/22 08/14/22 Rx #7 tabs amlodipine 2.5 mg tablet 2.5 mg PO DAILY afib 08/14/22 08/14/22 History New Prescriptions to Start Prescriptions: Allergies Allergy/AdvReac Type Severity Reaction Status Date / Time Penicillins Allergy Unknown Verified 07/29/21 14:19 Exam (Inpt) Vital signs and Labs for Last 24 Hours: Temp Pulse Resp BP Pulse Ox O2 Del Method 97.9 F 75 16 103/51 L 91 L Room Air 08/15/22 04:00 08/15/22 04:00 08/15/22 04:00 08/15/22 04:00 08/15/22 04:00 08/15/22 06:28 Laboratory Results - last 24 hr 08/14/22 20:20: WBC 12.3 H, RBC 4.81, Hgb 12.5 L, Hct 41.6 L, MCV 86.5, MCH 26.0 L, MCHC 30.1 L, RDW 17.4, Plt Count 378, MPV 7.6, Neut % (Auto) 80.2 H, Lymph % (Auto) 13.1, [place] % (Auto) 6.0, Eos % (Auto) 0.3, Baso % (Auto) 0.4, Neut # (Auto) 9.9 H, Lymph # (Auto) 1.6, [place] # (Auto) 0.7, Eos # (Auto) 0.0, Baso # (Auto) 0.1, Sodium 133 L, Potassium
[2022-08-15 07:46] LABS: Basophils % 0.3 % (0.1-2.0); Eosinophils # 0.1 K/mm3 (0.0-0.4); Eosinophils % 1.1 % (0.1-12.0); Hematocrit 35.3 % (42.0-52.0); Lymphocytes # 2.1 K/mm3 (0.7-4.5); Mean Corpuscular HGB Conc 30.9 g/dL (31.8-35.4); Mean Corpuscular Hemoglobin 26.4 pg (27.0-31.2); Mean Corpuscular Volume 85.6 fl (80-94); Mean Platelet Volume 7.6 fl (7.4-10.4); Monocytes # 0.8 K/mm3 (0.1-1.0); Monocytes % 6.6 % (1.7-9.3); Neutrophils # 8.8 K/mm3 (1.8-7.8); Neutrophils % 74.1 % (37.0-80.0); Platelet Count 330 K/mm3 (142-424); Red Blood Count 4.13 M/mm3 (4.60-6.20); Red Cell Distribution Width 17.6 % (11.5-17.5); White Blood Count 11.9 K/mm3 (4.8-10.8)
--- NOTE | 2022-08-15 08:13 | PC.NURSE ---
Addendum entered by Zakiya Sánchez RN 08/15/22 08:13: kenneth smart on at 0745. Original Note: rectal temp 96.1F
[2022-08-15 08:14] LABS: Anion Gap 13.7 mEq/L (5-15); Blood Urea Nitrogen 38 mg/dl (9-20); Calcium 8.8 mg/dl (8.4-10.2); Carbon Dioxide 24 mmol/L (22.0-30.0); Chloride 102 mmol/L (98-107); Creatinine Clearance Estimated 36 mL/min (50-200); Estimated Glomerular Filt Rate 107 ml/min (>60); GFR (African American) 129 ML/MIN (>60); Glucose 82 mg/dl (74-100); Potassium 5.7 mmoL/L (3.5-5.1); Sodium 134 mmol/L (136-145)
--- NOTE | 2022-08-15 08:26 | EXP.HP ---
History of Present Illness *Admission Date: 08/14/22 *History of present illness: Patient is an 87 year old patient of [facility], who is typically followed by Dr. Sr, with an extensive medical history. He is feed through a G-tube that has been managed by Freddy Madison. Evidently last night, about an hour after being fed, he had some dark, almost black emesis. Patient was brought to the ER for further evaluation. General surgery was consulted by the ER doctor. This history is obtain from the ER record as patient is unable to answer questions and no family members are currently at the bedside. [facility] Disclaimer: The information contained in this section may have been updated after the patient was seen, as this information can be updated by other users. Medical History (Updated 08/15/22 @ 08:38 by Javier Bains MD) Abnormal electrocardiography Acute esophageal obstruction CAD (coronary artery disease) Cardiomyopathy Decubitus ulcer of sacral region, stage 2 Esophageal diverticulum Failure to thrive in adult Gastrojejunostomy tube dislodgement Gastrostomy tube in place Hearing deficit History of hip fracture History of pacemaker Hypertension Hypothyroidism Malnutrition Surgical History Hx of CABG Family History Coronary artery disease Hypertension Stroke Social History (Updated 08/15/22 @ 01:40 by Naman Wiggins RN) Smoking Status: Never smoker alcohol intake: never substance use type: denies use current occupational status: retired Travel in the last 8 weeks: None household members: spouse housing: house caffeine: Yes Review of Systems Review of Systems Review of systems:: unable to obtain Meds Home Medications and Allergies Home Medications Medication Instructions Recorded Confirmed Type atorvastatin 20 mg tablet 20 mg PO HS Cholesterol 02/28/21 08/14/22 History metoprolol succinate 25 mg 25 mg PO DAILY High blood pressure 02/28/21 08/14/22 History tablet,extended release 24 hr aspirin 81 mg tablet,delayed 81 mg PO DAILY heart health 04/14/21 08/14/22 History release (Marylou Low Dose Aspirin) levothyroxine 50 mcg tablet 50 mcg PO DAILYDM thyroid 05/20/21 08/14/22 History sertraline 25 mg tablet 25 mg PO DAILY Depression 05/20/21 08/14/22 History levofloxacin 500 mg tablet 500 mg PO DAILY infection 7 days 05/03/22 08/14/22 Rx #7 tabs amlodipine 2.5 mg tablet 2.5 mg PO DAILY afib 08/14/22 08/14/22 History New Prescriptions to Start Prescriptions: Allergies Allergy/AdvReac Type Severity Reaction Status Date / Time Penicillins Allergy Unknown Verified 07/29/21 14:19 Exam Data for Last 24 hours Vital signs and Labs for Last 24 Hours: Temp Pulse Resp BP Pulse Ox O2 Del Method 97.9 F 75 16 103/51 L 91 L Room Air 08/15/22 04:00 08/15/22 04:00 08/15/22 04:00 08/15/22 04:00 08/15/22 04:00 08/15/22 06:28 Laboratory Results - last 24 hr 08/14/22 20:20: WBC 12.3 H, RBC 4.81, Hgb 12.5 L, Hct 41.6 L, MCV 86.5, MCH 26.0 L, MCHC 30.1 L, RDW 17.4, Plt Count 378, MPV 7.6, Neut % (Auto) 80.2 H, Lymph % (Auto) 13.1, [place] % (Auto) 6.0, Eos % (Auto) 0.3, Baso % (Auto) 0.4, Neut # (Auto) 9.9 H, Lymph # (Auto) 1.6, [place] # (Auto) 0.7, Eos # (Auto) 0.0, Baso # (Auto) 0.1, Sodium 133 L, Potassium 4.2, Chloride 94 L, Carbon Dioxide 26, Anion Gap 17.2 H, BUN 46 H, Creatinine 0.90, Estimated Creat Clear 32, Estimated GFR 80, Est GFR ( Amer) 97, Glucose 173 H, Lactate 3.0 H, Calcium 9.6, Total Bilirubin 0.3, AST 39, ALT 30, Alkaline Phosphatase 134 H, Total Protein 9.1 H D, Albumin 3.9, Globulin 5.2 H, Albumin/Globulin Ratio 0.8 L, Amylase 96, Lipase 131 08/14/22 20:28: Gastric Occult Blood Positive 08/14/22 20:45: Urine Color Yellow, Urine Appearance Sl cloudy, Urine pH 5.5, Ur Specific [place] 1.015, Urine Protein Negative, Urine Glucose (UA) Negat
--- NOTE | 2022-08-15 08:54 | DIET.NUTRFU ---
Addendum entered by Suzanne Stacy RD, LD 08/15/22 09:57: Spoke to nursing and provider is ready to start TF, also increased IVF therefore will start minimal flush of 50ml TID until IVF discontinued. Total fluid need at CBW of 48kg is 1200-1500ml/day. So once IVF is discontinued with increase flush to 90ml [id number] for total fluid of 1314ml/day Original Note: Consulted to marcus; for malnutrition and tubefeeding recommendations. Patient was admitted for GI bleed, coffee ground emesis coming out PEG tube. Was seen by Sx this AM and repositioned PEG and said he would need non emergent endoscopic eval. This RD is familiar with this patient, he was admitted in April. Weight has been stable since April CBW is 48kg, BMI 16. On April admit he had skin breakdown to lower buttock and elbow, now intact. Labs reviewed, hydration WNL, NaCl was started. Nursing helped with TF information, family continues to give food via tube consistently of scrambled eggs/chips/peanut butter and milk. This RD spent a extensive amount of time last admit going over nutritional needs and food items that would appropriate. TF at the house is not fully covered under insurance and they cannot afford to continue the TF formula. Here at hospital he will receive Jevity 1.2 at a goal rate of 40ml/hr ATC providing 960ml/1152kcal/53gm protein and 774ml/day. When medically feasible to start TF initiate it at 20ml/hr and increase Q4H until goal rate reached. Base on his nutritional status he does not actively trigger for malnutrition at this time. He does continues to be at high risk for malnutrition and skin breakdown.
--- NOTE | 2022-08-15 17:13 | PC.NURSE ---
family notified this nurse of pts elbow. family stated pts lt elbow was a little swollen yesterday but today it is very swollen. warm to touch, pain, limited mobility at lt elbow. paged HERMANN cavanaugh from [facility]: elbow xray and warm compress.
--- NOTE | 2022-08-15 17:16 | XR_ITS ---
PROCEDURE INFORMATION: Exam: XR Left Elbow Exam date and time: 08/15/2022 5:48 PM Age: 87 years old Clinical indication: Pain; Elbow; Left; Additional info: Lt elbow swelling, warmth, pain TECHNIQUE: Imaging protocol: Radiologic exam of the left elbow. Views: 1 or 2 views. COMPARISON: No relevant prior studies available. FINDINGS: Bones/joints: Small joint effusion noted. No visible acute fracture or dislocation. Soft tissues: There is soft tissue stranding about the elbow. IMPRESSION: 1. There is soft tissue stranding about the elbow. 2. No visible acute fracture or dislocation.
--- NOTE | 2022-08-15 18:48 | PC.NURSE ---
Tube feeds started on patient at home rate of 40 ml/hr. Patient tolerating feeds throughout shift.
--- NOTE | 2022-08-15 19:14 | PC.NURSE ---
PER PT REPORT: pt stated he request a bath today, but didn't receive one. Informed day shift and welder 2nd shift aides during handoff report, welder 2nd shift aides stated they would give pt a bath tonight.
--- NOTE | 2022-08-15 19:45 | PC.NURSE ---
pt had a bath gave by day shift aides.
--- NOTE | 2022-08-15 20:23 | PC.NURSE ---
assess elbow, minor swelling noted, pink color. pt stated no pain present. peg site dsg c/d/i with perforated gauze. placement verified with auscultation, 40ml/hr jevity 1.2 full strength with flush 50ml q8h. meds gave through peg tube. pt seems more alert compared to this morning.
[2022-08-16] VITALS: BP 107/65; PULSE 78; RESP 18; TEMP 36.6; O2SAT 88
[2022-08-16 03:58] VITALS: BP 110/62; PULSE 69; RESP 16; TEMP 36.4; O2SAT 97; BMI 15.3
--- NOTE | 2022-08-16 04:19 | PC.NURSE ---
residual volumes at 08/16 2019 were 0ml; 08/16 0020 0ml; and 0400 0ml changed dressing and applied non-adherent gauze, site was pink under tube
--- NOTE | 2022-08-16 06:03 | PC.NURSE ---
changed out new graduate cup and piston syringe, with label and date. verified patency prior to meds via auscultation. HOB 60degrees
[2022-08-16 06:27] LABS: Basophils % 0.2 % (0.1-2.0); Eosinophils # 0.3 K/mm3 (0.0-0.4); Eosinophils % 2.8 % (0.1-12.0); Hematocrit 31.8 % (42.0-52.0); Lymphocytes # 1.8 K/mm3 (0.7-4.5); Lymphocytes % 18.5 % (10-50); Mean Corpuscular HGB Conc 30.5 g/dL (31.8-35.4); Mean Corpuscular Hemoglobin 26.5 pg (27.0-31.2); Mean Corpuscular Volume 86.9 fl (80-94); Mean Platelet Volume 7.5 fl (7.4-10.4); Monocytes # 0.5 K/mm3 (0.1-1.0); Monocytes % 5.5 % (1.7-9.3); Neutrophils # 7.2 K/mm3 (1.8-7.8); Platelet Count 292 K/mm3 (142-424); Red Blood Count 3.66 M/mm3 (4.60-6.20); Red Cell Distribution Width 17.6 % (11.5-17.5); White Blood Count 9.8 K/mm3 (4.8-10.8)
[2022-08-16 06:35] LABS: Anion Gap 9.4 mEq/L (5-15); Blood Urea Nitrogen 23 mg/dl (9-20); Calcium 8.3 mg/dl (8.4-10.2); Carbon Dioxide 24 mmol/L (22.0-30.0); Chloride 109 mmol/L (98-107); Creatinine Clearance Estimated 35 mL/min (50-200); Estimated Glomerular Filt Rate 107 ml/min (>60); GFR (African American) 129 ML/MIN (>60); Glucose 146 mg/dl (74-100); Potassium 4.4 mmoL/L (3.5-5.1); Sodium 138 mmol/L (136-145)
[2022-08-16 06:45] LABS: Hemoglobin 9.8 g/dL (14.1-18.0)
--- NOTE | 2022-08-16 06:50 | EXP.SURG.PN ---
Subjective Narrative: After readjustment of migrated gastrostomy tube no significant leakage noted and tube feeds initiated without difficulty. Tolerating well. Exam Data for Last 24 hours Vital signs and Labs for Last 24 Hours: Temp Pulse Resp BP Pulse Ox O2 Del Method 97.6 F 69 16 110/62 97 Room Air 08/16/22 03:58 08/16/22 03:58 08/16/22 03:58 08/16/22 03:58 08/16/22 03:58 08/16/22 06:21 Laboratory Results - last 24 hr 08/15/22 07:23: WBC 11.9 H, RBC 4.13 L, Hgb 11.0 L D, Hct 35.3 L, MCV 85.6, MCH 26.4 L, MCHC 30.9 L, RDW 17.6 H, Plt Count 330, MPV 7.6, Neut % (Auto) 74.1, Lymph % (Auto) 18.0, [place] % (Auto) 6.6, Eos % (Auto) 1.1, Baso % (Auto) 0.3, Neut # (Auto) 8.8 H, Lymph # (Auto) 2.1, [place] # (Auto) 0.8, Eos # (Auto) 0.1, Baso # (Auto) 0.0, Sodium 134 L, Potassium 5.7 H D, Chloride 102, Carbon Dioxide 24, Anion Gap 13.7, BUN 38 H, Creatinine 0.70 D, Estimated Creat Clear 36, Estimated GFR 107, Est GFR ( Amer) 129 D, Glucose 82 D, Calcium 8.8 08/16/22 06:15: WBC 9.8, RBC 3.66 L, Hgb 9.8 L D, Hct 31.8 L, MCV 86.9, MCH 26.5 L, MCHC 30.5 L, RDW 17.6 H, Plt Count 292, MPV 7.5, Neut % (Auto) 73.0, Lymph % (Auto) 18.5, [place] % (Auto) 5.5, Eos % (Auto) 2.8, Baso % (Auto) 0.2, Neut # (Auto) 7.2, Lymph # (Auto) 1.8, [place] # (Auto) 0.5, Eos # (Auto) 0.3, Baso # (Auto) 0.0, Sodium 138, Potassium 4.4 D, Chloride 109 H, Carbon Dioxide 24, Anion Gap 9.4, BUN 23 H D, Creatinine 0.70, Estimated Creat Clear 35, Estimated GFR 107, Est GFR ( Amer) 129, Glucose 146 H D, Calcium 8.3 L I & O for Last 24 hours: Intake & Output 08/13/22 08/14/22 08/15/22 08/16/22 11:59 11:59 11:59 11:59 Intake Total 1580 / 1580 1610 / 1610 Output Total 0 / 0 700 / 700 Balance 1580 / 1580 910 / 910 Weight 105 lb 13.15 oz 101 lb 8 oz Microbiology Reports for the Last 24 Hours: Microbiology 08/14/22 20:45 Urine,Catheterized Urine Culture - Final Escherichia coli *Routine Abdominal Exam Comments: Once again slight migration of gastrostomy tube. Readjusted Progress Note: A&P Assessment and plan (1) Acute upper gastrointestinal bleeding: Status: Acute Assessment and plan: Gastroccult was positive. Possible due to migration of gastrostomy tube balloon creating gastric outlet obstruction. Continue to monitor for now. Tolerating tube feeds at this time. Labs pending (2) Acute UTI (urinary tract infection): Status: Acute (3) Severe sepsis with acute organ dysfunction: Status: Acute (4) Cardiomyopathy: Status: Chronic (5) Cardiac pacemaker recipient: Status: Chronic (6) Esophageal abnormality: Status: Acute (7) Hyperlipidemia: Status: Chronic (8) History of coronary artery bypass graft: Status: Chronic (9) Coronary artery disease: Status: Chronic (10) Hypothyroidism: Status: Acute (11) Failure to thrive in adult: Status: Acute (12) Hearing deficit: Status: Chronic (13) Hypertension: Status: Chronic (14) Gastrostomy tube in place: Status: Acute (15) Fecal impaction in rectum: Status: Acute
[2022-08-16 07:41] VITALS: BP 135/54; PULSE 72; RESP 20; TEMP 36.5; O2SAT 98
--- NOTE | 2022-08-16 08:17 | EXP.ACUTE.PN ---
Subjective *Date: 08/16/22 *Time: 08:17 Interval history: Patient with no new complaints, wants to go home. Medical Exam Vital signs and Labs for Last 24 Hours: Vital Signs Temp Pulse Resp BP Pulse Ox O2 Del Method 08/16/22 07:41 97.7 F 72 20 135/54 L 98 Room Air 08/16/22 06:21 Room Air 08/16/22 03:58 97.6 F 69 16 110/62 97 Room Air 08/16/22 04:30 Room Air 08/16/22 02:52 Room Air 08/16/22 00:00 97.8 F 78 18 107/65 L 88 L Room Air 08/16/22 00:43 Room Air 08/15/22 23:00 Room Air 08/15/22 20:49 Room Air 08/15/22 20:00 Room Air 08/15/22 20:00 97.8 F 85 17 110/51 L 95 Room Air 08/15/22 18:44 Room Air 08/15/22 17:00 Room Air 08/15/22 16:00 98.4 F 94 H 20 107/58 L 96 Room Air 08/15/22 15:00 Room Air 08/15/22 12:00 98.0 F 62 16 116/63 98 Room Air 08/15/22 10:53 Room Air 08/15/22 10:16 99.2 F 08/15/22 09:00 Room Air 08/15/22 09:37 98.2 F Intake and Output 08/15/22 08/16/22 08/16/22 23:59 07:59 15:59 Intake Total 482 / 2062 1128 / 1128 Output Total 700 / 700 Balance 482 / 1462 428 / 428 Intake: Intake, Tube Feeding Amount 115 / 115 278 / 278 Intake, Tube Irrigant Amount 30 / 30 50 / 50 Intake, Total IV Amount 337 / 767 800 / 800 0.9 % Sodium Chloride 1000ML 1, 244 / 610 737 / 737 000 ml @ 125 mls/hr IV .Q8H [facility] Rx#:[id number] Ceftriaxone 1 gm 1 gm In 0.9 % 55 / 55 Sodium Chloride 50 ml @ 100 mls /hr IV 2100 [facility] Rx#:[id number] Pantoprazole Sodium 80 mg In 0. 38 / 102 63 / 63 9 % Sodium Chloride 100 ml @ 10 mls/hr IV .Q10H [facility] Rx#: [id number] Output: Output, Urine Amount 700 / 700 Other: Number of Unmeasured Voids 1 1 Number of Bowel Movements 1 Weight 101 lb 8 oz Patient Weight 08/16/22 23:59 Weight 101 lb 8 oz Laboratory Results - last 24 hr 08/16/22 06:15: WBC 9.8, RBC 3.66 L, Hgb 9.8 L D, Hct 31.8 L, MCV 86.9, MCH 26.5 L, MCHC 30.5 L, RDW 17.6 H, Plt Count 292, MPV 7.5, Neut % (Auto) 73.0, Lymph % (Auto) 18.5, [place] % (Auto) 5.5, Eos % (Auto) 2.8, Baso % (Auto) 0.2, Neut # (Auto) 7.2, Lymph # (Auto) 1.8, [place] # (Auto) 0.5, Eos # (Auto) 0.3, Baso # (Auto) 0.0, Sodium 138, Potassium 4.4 D, Chloride 109 H, Carbon Dioxide 24, Anion Gap 9.4, BUN 23 H D, Creatinine 0.70, Estimated Creat Clear 35, Estimated GFR 107, Est GFR ( Amer) 129, Glucose 146 H D, Calcium 8.3 L I & O for Labs for Last 24 Hours: Intake & Output 08/13/22 08/14/22 08/15/22 08/16/22 23:59 23:59 23:59 23:59 Intake Total 2061 1128 / 1128 Output Total 0 / 600 700 / 700 Balance 2061 428 / 428 Weight 95 lb 105 lb 13.15 oz 101 lb 8 oz Microbiology Reports for the Last 24 Hours: Microbiology 08/14/22 20:45 Urine,Catheterized Urine Culture - Final Escherichia coli Constitutional: Present thin and chronically ill appearing Respiratory: Present CTA bilaterally Cardiac: Present Reg Rate and Rhythm GI: Present soft and normal bowel sounds; Absent tenderness Assessment and Plan *Assessment and plan (1) Acute upper gastrointestinal bleeding: Status: Acute Category: Medical Code(s): K92.2 - Gastrointestinal hemorrhage, unspecified (2) Acute UTI (urinary tract infection): Status: Acute Category: Medical Code(s): N39.0 - Urinary tract infection, site not specified (3) Severe sepsis with acute organ dysfunction: Status: Acute Category: Medical Code(s): A41.9 - Sepsis, unspecified organism; R65.20 - Severe sepsis without septic shock (4) Cardiomyopathy: Status: Chronic Qualifiers: Cardiomyopathy type: unspecified Qualified Code(s): I42.9 - Cardiomyopathy, unspecified Category: Medical Code(s): I42.9 - Cardiomyopathy, unspecified (5) Cardiac pacemaker recipient: Status: Chr
--- NOTE | 2022-08-16 12:10 | PC.NURSE ---
PET CARE WORKER Note: pt has been turned every 2h. pt has been given a bath.
[2022-08-16 15:04] VITALS: BP 145/59; PULSE 70; RESP 18; TEMP 36.5; O2SAT 99
--- NOTE | 2022-08-16 18:28 | PC.NURSE ---
decreased urine output today, scanned bladder, greater than 518 recorded. Per Nara, it is okay to use a purewick. At bladder rescan, it is okay to place hooks catheter if urine recorded is greater than 900. Purewick placed per laboratory animal caretaker.
[2022-08-16 20:00] VITALS: BP 158/62; PULSE 73; RESP 16; TEMP 36.4; O2SAT 100
[2022-08-17] VITALS (12 sets, daily range): BP systolic 92–127; BP diastolic 46–64; PULSE 70–97; RESP 14–18; TEMP 36.3–36.9; O2SAT 95–98; BMI 17.4
--- NOTE | 2022-08-17 00:20 | PC.NURSE ---
TF TURNED OFF BY THIS RN @ 0020 PER MD JINNY NOTE FOR PT TO BE NPO @ 0000 FOR POSSIBLE EGD.
[2022-08-17 06:32] LABS: Basophils % 0.1 % (0.1-2.0); Eosinophils # 0.3 K/mm3 (0.0-0.4); Eosinophils % 3.6 % (0.1-12.0); Hematocrit 31.9 % (42.0-52.0); Hemoglobin 9.7 g/dL (14.1-18.0); Lymphocytes # 1.5 K/mm3 (0.7-4.5); Lymphocytes % 18.5 % (10-50); Mean Corpuscular HGB Conc 30.4 g/dL (31.8-35.4); Mean Corpuscular Hemoglobin 26.4 pg (27.0-31.2); Monocytes # 0.4 K/mm3 (0.1-1.0); Monocytes % 4.8 % (1.7-9.3); Neutrophils # 5.8 K/mm3 (1.8-7.8); Platelet Count 294 K/mm3 (142-424); Red Blood Count 3.67 M/mm3 (4.60-6.20); Red Cell Distribution Width 17.6 % (11.5-17.5); White Blood Count 7.9 K/mm3 (4.8-10.8)
--- NOTE | 2022-08-17 07:43 | EXP.SURG.PN ---
Subjective Narrative: No new issues. No obvious bleeding. Hgb 9.7 Exam Data for Last 24 hours Vital signs and Labs for Last 24 Hours: Temp Pulse Resp BP Pulse Ox O2 Del Method 98.5 F 74 16 117/56 L 98 Room Air 08/17/22 07:29 08/17/22 07:29 08/17/22 07:29 08/17/22 07:29 08/17/22 07:29 08/17/22 07:29 Laboratory Results - last 24 hr 08/17/22 05:49: WBC 7.9, RBC 3.67 L, Hgb 9.7 L, Hct 31.9 L, MCV 87.0, MCH 26.4 L, MCHC 30.4 L, RDW 17.6 H, Plt Count 294, MPV 8.0, Neut % (Auto) 73.0, Lymph % (Auto) 18.5, [place] % (Auto) 4.8, Eos % (Auto) 3.6, Baso % (Auto) 0.1, Neut # (Auto) 5.8, Lymph # (Auto) 1.5, [place] # (Auto) 0.4, Eos # (Auto) 0.3, Baso # (Auto) 0.0 I & O for Last 24 hours: Intake & Output 08/14/22 08/15/22 08/16/22 08/17/22 11:59 11:59 11:59 11:59 Intake Total 1580 / 1580 1610 / 1610 3175 / 3175 Output Total 0 / 0 700 / 700 500 / 500 Balance 1580 / 1580 910 / 910 2675 / 2675 Weight 105 lb 13.15 oz 101 lb 8 oz 115 lb 1 oz Microbiology Reports for the Last 24 Hours: Microbiology 08/14/22 22:25 Blood Blood Culture - Preliminary NO GROWTH AFTER 48 HOURS 08/14/22 20:45 Blood Blood Culture - Preliminary 08/14/22 20:45 Urine,Catheterized Urine Culture - Final Escherichia coli *Routine Abdominal Exam Comments: Gastrostomy tube in good position. Progress Note: A&P Assessment and plan (1) Acute upper gastrointestinal bleeding: Status: Acute Assessment and plan: Tentatively plan for EGD later today. (2) Acute UTI (urinary tract infection): Status: Acute (3) Severe sepsis with acute organ dysfunction: Status: Acute (4) Cardiomyopathy: Status: Chronic (5) Cardiac pacemaker recipient: Status: Chronic (6) Esophageal abnormality: Status: Acute (7) Hyperlipidemia: Status: Chronic (8) History of coronary artery bypass graft: Status: Chronic (9) Coronary artery disease: Status: Chronic (10) Hypothyroidism: Status: Acute (11) Failure to thrive in adult: Status: Acute (12) Hearing deficit: Status: Chronic (13) Hypertension: Status: Chronic (14) Gastrostomy tube in place: Status: Acute (15) Fecal impaction in rectum: Status: Acute (16) Anemia: Status: Acute
[2022-08-17 07:52] LABS: Anion Gap 8.2 mEq/L (5-15); Blood Urea Nitrogen 16 mg/dl (9-20); Calcium 8.2 mg/dl (8.4-10.2); Carbon Dioxide 23 mmol/L (22.0-30.0); Chloride 111 mmol/L (98-107); Creatinine Clearance Estimated 39 mL/min (50-200); Estimated Glomerular Filt Rate 128 ml/min (>60); GFR (African American) 155 ML/MIN (>60); Glucose 88 mg/dl (74-100); Potassium 4.2 mmoL/L (3.5-5.1); Sodium 138 mmol/L (136-145)
--- NOTE | 2022-08-17 08:17 | EXP.ACUTE.PN ---
Subjective *Date: 08/17/22 *Time: 08:39 Interval history: Patient denies chest pain and shortness of breath. He apparently is tolerating tube feedings. Dr. Langston has seen the patient this morning and feels the G-tube is in good position. He has had no active bleeding. Hemoglobin is stable. Patient wants to go home. Patient remains n.p.o.?? EGD Medical Exam Vital signs and Labs for Last 24 Hours: Vital Signs Temp Pulse Resp BP Pulse Ox O2 Del Method 08/17/22 07:29 98.5 F 74 16 117/56 L 98 Room Air 08/17/22 04:00 97.4 F L 71 18 115/54 L 96 Room Air 08/17/22 06:58 Room Air 08/17/22 05:00 Room Air 08/17/22 03:00 Room Air 08/17/22 01:00 Room Air 08/16/22 23:00 Room Air 08/16/22 21:00 Room Air 08/16/22 20:00 Room Air 08/16/22 20:00 97.5 F L 73 16 158/62 H 100 Room Air 08/16/22 18:26 Room Air 08/16/22 17:00 Room Air 08/16/22 15:04 97.7 F 70 18 145/59 H 99 Room Air 08/16/22 14:59 Room Air 08/16/22 13:00 Room Air 08/16/22 11:00 Room Air 08/16/22 09:00 Room Air Intake and Output 08/16/22 08/17/22 08/17/22 19:59 03:59 11:59 Intake Total 1200 / 1200 1975 / 3175 0 / 3175 Output Total 0 / 0 250 / 250 250 / 500 Balance 1200 / 1200 1725 / 2925 -250 / 2675 Intake: Intake, Oral Amount 0 / 0 Intake, Tube Feeding Amount 411 / 411 Intake, Tube Irrigant Amount 50 / 50 Intake, Other Amount 1200 / 1200 1514 / 2714 Output: Output, Urine Amount 0 / 0 250 / 250 250 / 500 Other: Intake, Other Source Saline Solution Number of Unmeasured Voids 1 0 Number of Bowel Movements 1 Weight 115 lb 1 oz Patient Weight 08/17/22 11:59 Weight 115 lb 1 oz Laboratory Results - last 24 hr 08/17/22 05:49: WBC 7.9, RBC 3.67 L, Hgb 9.7 L, Hct 31.9 L, MCV 87.0, MCH 26.4 L, MCHC 30.4 L, RDW 17.6 H, Plt Count 294, MPV 8.0, Neut % (Auto) 73.0, Lymph % (Auto) 18.5, [place] % (Auto) 4.8, Eos % (Auto) 3.6, Baso % (Auto) 0.1, Neut # (Auto) 5.8, Lymph # (Auto) 1.5, [place] # (Auto) 0.4, Eos # (Auto) 0.3, Baso # (Auto) 0.0, Sodium 138, Potassium 4.2, Chloride 111 H, Carbon Dioxide 23, Anion Gap 8.2, BUN 16 D, Creatinine 0.60 L, Estimated Creat Clear 39, Estimated GFR 128, Est GFR ( Amer) 155 D, Glucose 88 D, Calcium 8.2 L I & O for Labs for Last 24 Hours: Intake & Output 08/14/22 08/15/22 08/16/22 08/17/22 11:59 11:59 11:59 11:59 Intake Total 1580 / 1580 1610 / 1610 3175 / 3175 Output Total 0 / 0 700 / 700 500 / 500 Balance 1580 / 1580 910 / 910 2675 / 2675 Weight 105 lb 13.15 oz 101 lb 8 oz 115 lb 1 oz Microbiology Reports for the Last 24 Hours: Microbiology 08/14/22 22:25 Blood Blood Culture - Preliminary NO GROWTH AFTER 48 HOURS 08/14/22 20:45 Blood Blood Culture - Preliminary 08/14/22 20:45 Urine,Catheterized Urine Culture - Final Escherichia coli Constitutional: Present no acute distress, thin and cachectic Respiratory: Present CTA bilaterally Cardiac: Present Reg Rate and Rhythm GI: Present soft and normal bowel sounds; Absent tenderness Neuro: Present alert Assessment and Plan *Assessment and plan (1) Acute upper gastrointestinal bleeding: Status: Acute Category: Medical Code(s): K92.2 - Gastrointestinal hemorrhage, unspecified (2) Acute UTI (urinary tract infection): Status: Acute Category: Medical Code(s): N39.0 - Urinary tract infection, site not specified (3) Severe sepsis with acute organ dysfunction: Status: Acute Category: Medical Code(s): A41.9 - Sepsis, unspecified organism; R65.20 - Severe sepsis without septic shock (4) Cardiomyopathy: Status: Chronic Qualifiers: Cardiomyopathy type: unspecified Qualified Code(s): I42.9 - Cardiomyopathy, unspecified Category: Medical Code(s): I42.9 - Cardiomyopathy, unspecified
--- NOTE | 2022-08-17 09:38 | DIET.NUTRFU ---
Patient tolerated TF yesterday and was at goal rate of 40ml/hr meeting 100% nutritional needs. Currently on hold possible EGD today. Patient wants to go home, no further emesis noted and HBG is stable from 9.8 (08/16) and 9.7 today. Spoke to patient today, he has no concerns about his TF, his prepares his tubefeeding at home, uses blenderized foods to best meet needs. This RD reviewed nutritional plan in great depth last admit
--- NOTE | 2022-08-17 11:41 | PC.NURSE ---
Courtesy Round Patient laying in bed asleep. Trash and linens emptied . Call samayoa within reach
--- NOTE | 2022-08-17 12:38 | [facility].SCOPE ---
Procedure: Date: 08/17/22 Patient Date of :: 1935 Procedure Performed:: Esophagogastroduodenoscopy Indications:: Patient is an 87-year-old male who has been seen extensively in the past with Dr. Hayes for symptoms of dysphagia. In February 2021 he had an inpatient EGD performed which revealed large diverticulum with inflammation. Patient had presented to the emergency department on 05/16/2021 and he underwent repeat EGD for possible food impaction and there was noted to be some food particles but no obstruction. Due to progressive dysphagia noted to following this he underwent PEG tube placement on 05/20/2021. In April 2022 the PEG tube had become dislodged and was replaced with balloon gastrostomy by the ER physician. Patient ended up being admitted from 04/28/2022 until 05/03/2022 with pneumonia and leakage around the balloon gastrostomy tube. Dr. Hayes had manipulated and position this to help reduce leakage around the tube. Patient was admitted on 08/14/2022 after he presented to the emergency department with coffee-ground emesis after given tube feeding. He was admitted for inpatient management for treatment of urinary tract infection possible upper GI blood loss. His gastric aspirate was positive for occult blood. General surgery consultation was obtained. His CT scan was reviewed which appeared as though the gastrostomy balloon was at the pylorus. This was confirmed on physical examination and the tube was positioned appropriately. Initially his hemoglobin was 12.5 upon admission which was actually higher than recent inpatient admission. However a couple of days after admission it had diminished to 9.8 and the following day was 9.7. He had elevated BUN on admission which did show some normalization. Given the drop in his hemoglobin plan was made for EGD to evaluate for diagnostic purposes and intervention if needed. Performing Provider:: Amanuel Langston MD Referring Provider:: Javier Bains MD Sedation:: MAC sedation Procedure:: Patient history was obtained and appropriate physical examination was performed. Patient's medications and allergies were reviewed. Informed consent was obtained after explaining the benefits, alternatives, and risks of the procedure including, but not limited to, bleeding, perforation, missed lesions, and adverse reaction to anesthesia medications. Patient was transported to endoscopy procedure room. Patient was connected to monitoring devices. Throughout the procedure the patient's blood pressure, pulse, and oxygen saturations were monitored continuously. Patient identification and planned procedure were verified by the staff. Patient was positioned in lateral decubitus position. Olympus endoscope was inserted via the oropharynx. Esophagus was cannulated. There appeared to be some cricopharyngeal spasm. Throughout the esophagus there were findings consistent with some significant esophageal dysmotility with tortuosity of the esophagus. There were changes at approximately 30 cm from the incisors consistent with esophageal diverticulum versus possible surgical changes. No known history of previous surgery. There is no evidence of mass or significant inflammation or retained food matter. Gastroesophageal junction was encountered at 45 cm. Stomach was cannulated and insufflated. Retroflexion revealed a moderate sliding hiatal hernia. The balloon from the gastrostomy tube was in a good position. In the antrum in the prepyloric location there was a shallow exudative healing ulcer. This may be secondary to now relieved transient impaction of gastrostomy balloon in the pylorus as a pressure ulceration . No stigmata of recent bleeding. Pylorus was traversed. Duodenum appeared normal. The endoscope was drawn into the gastric lumen and this was desufflated. Endoscope was withdrawn. Findings:: Cricopharyngeal spasm/narrowing Findings consistent with esophageal dysmotility Esophageal diverticulum mari
--- NOTE | 2022-08-17 16:55 | P.PN_ITS ---
[facility] Disclaimer: The information contained in this section may have been updated after the patient was seen, as this information can be updated by other users. Medical History (Updated 08/16/22 @ 08:19 by Javier Bains MD) Abnormal electrocardiography Acute esophageal obstruction CAD (coronary artery disease) Cardiomyopathy Decubitus ulcer of sacral region, stage 2 Esophageal diverticulum Failure to thrive in adult Gastrojejunostomy tube dislodgement Gastrostomy tube in place Hearing deficit History of hip fracture History of pacemaker Hypertension Hypothyroidism Malnutrition Surgical History Hx of CABG Family History Other Coronary artery disease Hypertension Stroke Social History (Updated 08/15/22 @ 01:40 by Naman Wiggins RN) Smoking Status: Never smoker alcohol intake: never substance use type: denies use current occupational status: retired Travel in the last 8 weeks: None household members: spouse housing: house caffeine: Yes [facility] Anesthesia Checklist Patient Identification Patient Identification: Arm Band and Family Structural Data Admitted From: Home Planned Operative Procedure/s: colonoscopy Consent for Planned Operative Procedure(s) Verified: Yes Verified Documents: Surgical Consent and History and Physical NPO Status Verified Time NPO: 00:00 Additional verifications Patient : No Anesthesia Reactions: No Hx Blood Transfusions: No Blood Transfusion Reaction: No Cephalosporin Allergy: No Previous Colonoscopy: No Airway Assessment C-Spine Mobility Assessed: Yes Dentition: Good Dentition Neurological Assessment Level of Consciousness: Awake, Alert, Appropriate and Follows Commands Hx Seizures: No Numbness or tingling in extremities: No Anesthesia Plan Anesthesia Risk discussed: Yes ASA Class: III Anesthesia Type: MAC
--- NOTE | 2022-08-17 18:25 | PC.NURSE ---
patient refused 1515, 1615 and 1715 vital signs
[2022-08-18] VITALS: BP 147/96; PULSE 71; RESP 20; TEMP 36.6; O2SAT 98
[2022-08-18 04:00] VITALS: BP 149/65; PULSE 74; RESP 20; TEMP 36.6; O2SAT 98; BMI 16.5
--- NOTE | 2022-08-18 04:24 | PC.NURSE ---
changed peg tube dsg, scant yellow drainage present. edema 1+ noted in RUE & LUE.
[2022-08-18 07:45] VITALS: BP 136/57; PULSE 70; RESP 16; TEMP 36.5; O2SAT 99
[2022-08-18 08:15] LABS: Hematocrit 32.8 % (42.0-52.0); Hemoglobin 9.7 g/dL (14.1-18.0)
--- NOTE | 2022-08-18 08:19 | P.PN_ITS ---
Subjective *Date: 08/18/22 *Time: 08:19 Medical Exam Vital signs and Labs for Last 24 Hours: Vital Signs Temp Pulse Resp BP Pulse Ox O2 Del Method O2 Flow Rate 08/18/22 07:45 97.7 F 70 16 136/57 L 99 Room Air 08/18/22 04:00 97.8 F 74 20 149/65 H 98 Room Air 08/18/22 06:34 Room Air 08/18/22 05:00 Room Air 08/18/22 02:48 Room Air 08/18/22 00:00 97.8 F 71 20 147/96 H 98 Room Air 08/18/22 01:00 Room Air 08/17/22 23:00 Room Air 08/17/22 20:00 Room Air 08/17/22 21:00 Room Air 08/17/22 14:45 70 14 122/56 L 08/17/22 14:15 70 15 114/56 L 08/17/22 14:00 71 16 119/59 L 08/17/22 13:45 71 15 117/58 L 08/17/22 13:30 71 17 119/49 L 08/17/22 15:00 Room Air 08/17/22 13:15 72 16 119/59 L 97 Room Air 08/17/22 13:05 98.5 F 97 H 18 127/64 97 Room Air 08/17/22 12:55 98.5 F 70 18 109/54 L 96 Room Air 08/17/22 12:45 98.5 F 70 18 92/46 L 95 Room Air 08/17/22 12:25 Nasal Cannula 5 Intake and Output 08/17/22 08/18/22 08/18/22 23:59 07:59 15:59 Intake Total 813 / 2788 1230 / 1230 Output Total 350 / 850 150 / 150 Balance 463 / 1938 1080 / 1080 Intake: Intake, Oral Amount 0 / 0 Intake, Tube Feeding Amount 252 / 663 274 / 274 Intake, Tube Irrigant Amount 50 / 100 120 / 120 Intake, Total IV Amount 511 / 511 836 / 836 0.9 % Sodium Chloride 1000ML 1, 435 / 435 836 / 836 000 ml @ 125 mls/hr IV .Q8H [facility] Rx#:[id number] Ceftriaxone 1 gm 1 gm In 0.9 % 52 / 52 Sodium Chloride 50 ml @ 100 mls /hr IV 2100 [facility] Rx#:[id number] Pantoprazole Sodium 80 mg In 0. 24 / 24 9 % Sodium Chloride 100 ml @ 10 mls/hr IV .Q10H [facility] Rx#: [id number] Output: Output, Urine Amount 350 / 850 150 / 150 Other: Number of Unmeasured Voids 1 0 Number of Bowel Movements 1 1 Weight 49.487 kg Patient Weight 08/18/22 23:59 Weight 49.487 kg I & O for Labs for Last 24 Hours: Intake & Output 08/15/22 08/16/22 08/17/22 08/18/22 23:59 23:59 23:59 23:59 Intake Total 2061 2328 / 4303 2788 / 2788 1230 / 1230 Output Total 0 / 600 700 / 950 850 / 850 150 / 150 Balance 2061 1628 / 3353 1938 / 1938 1080 / 1080 Weight 48 kg 46.04 kg 52.191 kg 49.487 kg Microbiology Reports for the Last 24 Hours: Microbiology 08/14/22 20:45 Blood Blood Culture - Preliminary Gram Positive Cocci The patient's infection will respond to the chosen ABx?: Yes (URINE CX = E COLI, SENSITIVE. WBC NORMAL, AFEBRILE.) Is the patient receiving the right drug, dose, and route?: Yes Could a more targeted ABx be ordered?: No How long ABx needed (days)?: 7
--- NOTE | 2022-08-18 08:28 | EXP.SURG.PN ---
Subjective Patient reports: no new complaints Exam Data for Last 24 hours Vital signs and Labs for Last 24 Hours: Temp Pulse Resp BP Pulse Ox O2 Del Method O2 Flow Rate 97.7 F 70 16 136/57 L 99 Room Air 5 08/18/22 07:45 08/18/22 07:45 08/18/22 07:45 08/18/22 07:45 08/18/22 07:45 08/18/22 07:45 08/17/22 12:25 Laboratory Results - last 24 hr 08/18/22 08:04: Hgb 9.7 L, Hct 32.8 L I & O for Last 24 hours: Intake & Output 08/15/22 08/16/22 08/17/22 08/18/22 11:59 11:59 11:59 11:59 Intake Total 1580 / 1580 1610 / 1610 3175 / 3175 2043 / 2043 Output Total 0 / 0 700 / 700 500 / 500 500 / 500 Balance 1580 / 1580 910 / 910 2675 / 2675 1543 / 1543 Weight 105 lb 13.15 oz 101 lb 8 oz 115 lb 1 oz 109 lb 1.6 oz Microbiology Reports for the Last 24 Hours: Microbiology 08/14/22 20:45 Blood Blood Culture - Preliminary Gram Positive Cocci Constitutional Constitutional: no acute distress *Routine Respiratory Exam Respiratory: Absent respiratory distress *Routine Cardiovascular Exam Cardiovascular: Absent tachycardia *Routine Abdominal Exam Comments: 4 cm of gastric tube slippage noted. Tube re-anchored and 1 small piece of silk tape added. Progress Note: A&P Assessment and plan (1) Acute upper gastrointestinal bleeding: Status: Acute Assessment and plan: Likely secondary to prepyloric ulceration. Continue proton pump inhibition Gastric tube being maintained in the appropriate position essential to decrease likelihood of migration leading to possible gastric outlet obstruction and also possible prepyloric region erosion (2) Gastrostomy tube in place: Status: Acute Assessment and plan: Gastric tube re-anchored with 1 small piece of silk tape added to help decrease likelihood of migration. Continued close monitoring by family and any caregivers necessary to ensure appropriate positioning. (3) Anemia: Status: Acute Assessment and plan: Hemoglobin 9.7 (stable) this AM. Most likely sources prepyloric ulceration (possibly secondary to gastric tube migration/erosion)
--- NOTE | 2022-08-18 08:30 | EXP.ACUTE.PN ---
Subjective *Date: 08/18/22 *Time: 08:30 Interval history: Patient states he is feeling better today and wants to go home. He denies any pain. Had EGD yesterday. States he slept well last night. Medical Exam Vital signs and Labs for Last 24 Hours: Vital Signs Temp Pulse Resp BP Pulse Ox O2 Del Method O2 Flow Rate 08/18/22 07:45 97.7 F 70 16 136/57 L 99 Room Air 08/18/22 04:00 97.8 F 74 20 149/65 H 98 Room Air 08/18/22 06:34 Room Air 08/18/22 05:00 Room Air 08/18/22 02:48 Room Air 08/18/22 00:00 97.8 F 71 20 147/96 H 98 Room Air 08/18/22 01:00 Room Air 08/17/22 23:00 Room Air 08/17/22 20:00 Room Air 08/17/22 21:00 Room Air 08/17/22 14:45 70 14 122/56 L 08/17/22 14:15 70 15 114/56 L 08/17/22 14:00 71 16 119/59 L 08/17/22 13:45 71 15 117/58 L 08/17/22 13:30 71 17 119/49 L 08/17/22 15:00 Room Air 08/17/22 13:15 72 16 119/59 L 97 Room Air 08/17/22 13:05 98.5 F 97 H 18 127/64 97 Room Air 08/17/22 12:55 98.5 F 70 18 109/54 L 96 Room Air 08/17/22 12:45 98.5 F 70 18 92/46 L 95 Room Air 08/17/22 12:25 Nasal Cannula 5 Intake and Output 08/17/22 08/18/22 08/18/22 19:59 03:59 11:59 Intake Total 813 / 2043 1230 / 2043 Output Total 350 / 500 0 / 500 150 / 500 Balance -350 / 1543 813 / 1543 1080 / 1543 Intake: Intake, Oral Amount 0 / 0 Intake, Tube Feeding Amount 252 / 526 274 / 526 Intake, Tube Irrigant Amount 50 / 170 120 / 170 Intake, Total IV Amount 511 / 1347 836 / 1347 0.9 % Sodium Chloride 1000ML 1, 435 / 1271 836 / 1271 000 ml @ 125 mls/hr IV .Q8H [facility] Rx#:[id number] Ceftriaxone 1 gm 1 gm In 0.9 % 52 / 52 Sodium Chloride 50 ml @ 100 mls /hr IV 2100 [facility] Rx#:[id number] Pantoprazole Sodium 80 mg In 0. 24 / 24 9 % Sodium Chloride 100 ml @ 10 mls/hr IV .Q10H [facility] Rx#: [id number] Output: Output, Urine Amount 350 / 500 0 / 500 150 / 500 Other: Number of Unmeasured Voids 1 1 0 Number of Bowel Movements 1 1 Weight 109 lb 1.6 oz Patient Weight 08/18/22 11:59 Weight 109 lb 1.6 oz Laboratory Results - last 24 hr 08/18/22 08:04: Hgb 9.7 L, Hct 32.8 L I & O for Labs for Last 24 Hours: Intake & Output 08/15/22 08/16/22 08/17/22 08/18/22 11:59 11:59 11:59 11:59 Intake Total 1580 / 1580 1610 / 1610 3175 / 3175 2043 / 2043 Output Total 0 / 0 700 / 700 500 / 500 500 / 500 Balance 1580 / 1580 910 / 910 2675 / 2675 1543 / 1543 Weight 105 lb 13.15 oz 101 lb 8 oz 115 lb 1 oz 109 lb 1.6 oz Microbiology Reports for the Last 24 Hours: Microbiology 08/14/22 20:45 Blood Blood Culture - Preliminary Gram Positive Cocci Constitutional: Present no acute distress, thin and cachectic Respiratory: Present CTA bilaterally Cardiac: Present Reg Rate and Rhythm GI: Present soft and normal bowel sounds; Absent tenderness Extremities: Absent edema Neuro: Present alert, awake and oriented x 3 Assessment and Plan *Assessment and plan (1) Acute upper gastrointestinal bleeding: Status: Acute Category: Medical Code(s): K92.2 - Gastrointestinal hemorrhage, unspecified (2) Acute UTI (urinary tract infection): Status: Acute Category: Medical Code(s): N39.0 - Urinary tract infection, site not specified (3) Severe sepsis with acute organ dysfunction: Status: Acute Category: Medical Code(s): A41.9 - Sepsis, unspecified organism; R65.20 - Severe sepsis without septic shock (4) Cardiomyopathy: Status: Chronic Qualifiers: Cardiomyopathy type: unspecified Qualified Code(s): I42.9 - Cardiomyopathy, unspecified Category: Medical Code(s): I42.9 - Cardiomyopathy, unspecified (5) Cardiac pacemaker recipient: Status: Chronic Category: Medical Code(s): Z95.0 - Pr
--- NOTE | 2022-08-18 12:48 | PC.NURSE ---
contacted pt daughter about an ETA. daughter stated after lunch when she gets someone to pickup the grandkids. pt in room awake, resting. pt states he is okay and no needs at this time, pt asking about and daughter stating he wants to go home. pt pleasant. pt face appeared flush, oral temp 97.8 oral. pt stated he also wanted a bath before going home. cb within reach
--- NOTE | 2022-08-19 13:28 | CARE MANAGER ---
Spoke with patient's who states patient is doing very well. They picked up his medication and deny any questions or concerns. Aware of appointment with Dr. Sr. YOU Yuan
--- NOTE | 2022-08-27 08:44 | EXP.DC.SUM ---
General Admission date:: 08/15/22 Discharge date: 08/18/22 HPI HPI HPI: Patient is an 87 year old patient of [facility], who is typically followed by Dr. Sr, with an extensive medical history. He is feed through a G-tube that has been managed by Freddy Madison. Evidently last night, about an hour after being fed, he had some dark, almost black emesis. Patient was brought to the ER for further evaluation. General surgery was consulted by the ER doctor. This history is obtain from the ER record as patient is unable to answer questions and no family members are currently at the bedside. Hospital Course Hospital Course Hospital Course: The patient was admitted and his emesis tested positive for blood. He was started on antibiotics and IV fluids for UTI/sepsis and surgery was consulted. He was seen by Dr. Langston who felt his Gastroccult was positive likely due to migration of his gastrostomy tube balloon creating gastric outlet obstruction. He was tolerating tube feedings and he wanted to continue to monitor the patient. The patient's urine did grow E. coli. He was continued on antibiotics. The patient was taken for an EGD on 08/17/2022 and was found to have cricopharyngeal spasm/narrowing, findings consistent with esophageal dysmotility, and esophageal diverticulum, a small to moderate sliding hiatal hernia, diffuse nonerosive gastritis, a prepyloric antral healing shallow ulcer, but no stigmata of recent bleeding. Dr. Langston felt he may have developed a prepyloric antral pressure ulceration secondary to gastrostomy tube which now appeared to be healing without stigmata of recent bleeding. His tube feedings were reinitiated and he recommended medical management for his ulcer. He felt he would need a repeat EGD in 2 to 3 months. By 08/18/2022, the patient was feeling better and wanted to go home. Surgery wanted him continued on proton pump inhibitors and felt his gastric tube needed to be maintained in the appropriate position. Dr. Hayes did anchor the gastric tube with 1 small piece of silk tape to help decrease the likelihood of migration. It was felt the patient could be discharged home with follow-up with surgery and with Dr. Sr. Of note, his blood cultures did return showing Staphylococcus capitis which was likely contaminant. Exam Data for Last 24 hours Vital signs and Labs for Last 24 Hours: Temp Pulse Resp BP Pulse Ox O2 Del Method O2 Flow Rate 97.7 F 70 16 136/57 L 99 Room Air 5 08/18/22 07:45 08/18/22 07:45 08/18/22 07:45 08/18/22 07:45 08/18/22 07:45 08/18/22 11:00 08/17/22 12:25 Narrative: Constitutional Constitutional: no acute distress, cachectic, chronically ill appearing and cooperative *Routine HEENT Exam Head: Present normocephalic and atraumatic Eye: Present PERRL; Absent conjunctival icterus, scleral injection or conjunctivae pink ENT: Present mucous membranes moist Comments: Clear oropharyngeal exudate *Routine Neck Exam Neck: Absent carotid bruit, lymphadenopathy or thyromegaly *Routine Respiratory Exam Respiratory: Present CTA bilaterally, diminished air movement (Posteriorly) and normal respiratory effort *Routine Cardiovascular Exam Cardiovascular: Present RRR *Routine Abdominal Exam Abdominal: Present soft and normoactive bowel sounds; Absent distended *Routine Rectal Exam Rectal:: deferred *Routine Genitalia Exam Genitalia:: deferred *Routine Extremities Exam Extremities: Absent edema or calf tenderness *Routine Skin Exam Skin: Present dry *Routine Neurological Exam Neurological: Present alert and moving all extremities DS: Diagnosis Discharge Diagnosis (1) Acute upper gastrointestinal bleeding: Status: Resolved Code(s): K92.2 - Gastrointestinal hemorrhage, unspecified (2) Acute UTI (urinary tract infection): Status: Resolved Code(s): N39.0 - Urinary tract infection, site not specified (3) Severe sepsis with acute organ dysfunction
== END 2022-08-18 14:26 | disposition home or self-care (01) ==
LOC: ER 23:13 → 2ND 08-15 00:10
PROVIDERS: Family Medicine; Surgery; Admitting Provider Internal Medicine Adolescent Medicine; Emergency Provider Emergency Medicine; PCP Family Medicine; Visit Provider Family Medicine
PROC: 0DJ08ZZ Inspection of Upper Intestinal Tract, Via Natural or Artificial Opening Endoscopic (ICD-10-PCS; CPT 43235; principal; 2022-08-17 12:00)
DX: K92.2 Gastrointestinal hemorrhage, unspecified (principal); N39.0 Urinary tract infection, site not specified; A41.9 Sepsis, unspecified organism; R65.20 Severe sepsis without septic shock; I42.9 Cardiomyopathy, unspecified; Z95.0 Presence of cardiac pacemaker; K22.9 Disease of esophagus, unspecified; E78.2 Mixed hyperlipidemia; Z95.1 Presence of aortocoronary bypass graft; I25.810 Atherosclerosis of coronary artery bypass graft(s) without angina pectoris; E03.9 Hypothyroidism, unspecified; R62.7 Adult failure to thrive; H91.90 Unspecified hearing loss, unspecified ear; I10 Essential (primary) hypertension; Z93.1 Gastrostomy status; K56.41 Fecal impaction; D64.9 Anemia, unspecified; K44.9 Diaphragmatic hernia without obstruction or gangrene
CPT/HCPCS: 43235; G0378; 36415; 71045; 73070; 74177; 80048; 80053; 81001; 82150; 82272; 83605; 83690; 85014; 85018; 85025; 87040; 87077; 87086; 87088; 87186; 87636; 99285; G0328; J0696; J2405; Q9967

== ENCOUNTER 2023-02-15 16:44 | Emergency (ER) | payer MEDICARE, SELFPAY ==
[2023-02-15 16:45] VITALS: BP 119/64; PULSE 74; RESP 18; TEMP 36.8; O2SAT 100; BMI 13.1
--- NOTE | 2023-02-15 16:54 | ED_ITS ---
Discharge Plan Disposition Patient Disposition: Home, Self-Care Prescriptions Prescriptions: No Action aspirin [Marylou Low Dose Aspirin] 81 mg tablet,delayed release (DR/EC) 81 mg PO DAILY amlodipine 2.5 mg tablet 2.5 mg PO DAILY Patient Comments: TAKE ONE TABLET BY MOUTH EVERY DAY pantoprazole 40 mg tablet,delayed release (DR/EC) 40 mg PO DAILY Qty: 30 3RF atorvastatin 20 MG tablet 20 mg PO HS metoprolol succinate 25 MG tablet extended release 24 hr 25 mg PO DAILY levothyroxine 50 MCG tablet 50 mcg PO DAILYDM sertraline 25 MG tablet 25 mg PO DAILY Referrals Follow up/Referrals: Javier Bains MD [Primary Care Provider] - See instructions Clinical Impressions Clinical Impression: Problem with gastrostomy tube Instructions Patient Instructions: DI for Skin Abscess Discharge ED Provider: Yandel Linares General Adult HPI General Chief complaint: Skin/Abscess/Foreign Body Stated complaint: feeding tube accidentally cut Time Seen by Provider: 02/15/23 16:49 History of Present Illness HPI narrative: Patient is this patient is an 88-year-old gentleman who is dependent upon G-tube from a feeding standpoint is followed by Dr. Quezada for this. His today accidentally cut the feeding tube in half. This is an 18 Romanian 20 cc tube but no other complications associated with this but are here for replacement. Related Data Home Medications Medication Instructions Recorded Confirmed atorvastatin 20 mg tablet 20 mg PO HS Cholesterol 02/28/21 09/01/22 metoprolol succinate 25 mg 25 mg PO DAILY High Blood Pressure 02/28/21 09/01/22 tablet,extended release 24 hr aspirin 81 mg tablet,delayed 81 mg PO DAILY Heart Disease 04/14/21 09/01/22 release (Marylou Low Dose Aspirin) levothyroxine 50 mcg tablet 50 mcg PO DAILYDM hypothyroidism 05/20/21 09/01/22 sertraline 25 mg tablet 25 mg PO DAILY Depression 05/20/21 09/01/22 amlodipine 2.5 mg tablet 2.5 mg PO DAILY High Blood Pressure 08/14/22 09/01/22 Previous Rx's Medication Instructions Recorded pantoprazole 40 mg tablet,delayed 40 mg PO DAILY gastritis #30 tabs 08/18/22 release Allergies Allergy/AdvReac Type Severity Reaction Status Date / Time Penicillins Allergy Unknown Verified 09/01/22 12:33 [facility] Disclaimer: The information contained in this section may have been updated after the patient was seen, as this information can be updated by other users. Medical History Abnormal electrocardiography Acute esophageal obstruction CAD (coronary artery disease) Cardiomyopathy Decubitus ulcer of sacral region, stage 2 Esophageal diverticulum Esophagitis Failure to thrive in adult Fecal impaction in rectum Gastrojejunostomy tube dislodgement Gastrostomy tube in place Hearing deficit History of hip fracture History of pacemaker Hypertension Hypothyroidism Malnutrition Severe sepsis with acute organ dysfunction Surgical History Hx of CABG Family History Other Coronary artery disease Hypertension Stroke Social History Smoking Status: Never smoker alcohol intake: never substance use type: denies use current occupational status: retired Travel in the last 8 weeks: None household members: spouse housing: house caffeine: Yes ROS Obtained: Yes All systems reviewed & no additional complaints except as documented Physical Exam General General appearance: alert Respiratory Respiratory exam: Present normal lung sounds bilaterally Cardiovascular Cardiovascular exam: Present regular rate and tachycardia Abdominal Exam Abdominal exam: Present other (G-tube in place actively draining through the gastrostomy tube which has been cut in half sutures are no longer in place) Neurological Exam Neurological exam: Present alert Medical Decision Making [place] Inquiry Pt receiving controlled substance: No Vital Signs: 02/15/23 16:45 Temperature 98.2 F Temperature Source Oral Pulse Rate [Right Brachial] 74 Respiratory Rate 18 Blood Pressure [Right Arm] 119/64 Blood Pressure Mean [Right Arm] 82 Blood Pressure Source [Right Arm] Automatic Cuff Blood Pressure Position [Right Arm] Supine 02 Sat by Pulse Oximetry 100 Oxygen Delivery Method Room Air Orders (Tests/Meds): ED MEDICATIONS Discontinued Medications Generic Name Dose Route Start Last Admin Trade Name Freq PRN Reason Stop Dose Admin Diatrizoate Meglum/Diatrizoate Sod 30 ml 02/15/23 17:19 02/15/23 17:30 Diatrizoate Claudine 66% & Diatrizoate Na 10% 30ml Udc PO 02/15/23 17:20 30 ml ONCE ONE Administration ORDERS Category Date Time Status XR KUB Stat Exams 02/15/23 17:17 Ordered Medical Decision Narrative: 88-year-old gentleman here with a G-tube complication where his accidental ly cut the G-tube in half which will need to be replaced. It an 18 Romanian 20 cc tube will see if we have a replacement and I will perform a replacement. G-tube was successfully replaced KUB with Gastrografin was performed which did not show any extravasation G-tube was in appropriate position patient was discharged in stable condition Procedures Feeding Tube Replacement Type of Tube: gastrostomy Insertion Site Prior to Procedure: clean Tube Used for Reinsertion: other Romanian Tube Size (F): 18 Balloon size (mL): 20 Verification of Placement: KUB and gastrografin injection Tube Secured by: suturing Patient Tolerated Procedure: well Critical Care Critical Care Time Critical Care Time: No
--- NOTE | 2023-02-15 17:16 | PC.NURSE ---
Dr. Linares at for tube replacement
--- NOTE | 2023-02-15 17:17 | XR_ITS ---
PROCEDURE INFORMATION: Exam: XR Abdomen Exam date and time: 02/15/2023 5:24 PM Age: 88 years old Clinical indication: Device placement; Gi device; Gastrostomy, other; Additional info: G tube confirmation c/w contrast TECHNIQUE: Imaging protocol: Radiologic exam of the abdomen. Views: Frontal supine view of the abdomen. 1 View. COMPARISON: CT ABDOMEN PELVIS W CON 08/14/2022 9:22 PM FINDINGS: Tubes, catheters and devices: Contrast opacifies the stomach, no evidence for extraluminal contrast to suggest malpositioning of gastrostomy tube. Gastrointestinal tract: There is large volume stool throughout the colon with significant distention of the rectum. Bones/joints: See Soft tissues finding. The patient is status post median sternotomy. Soft tissues: Partially visualized right femoral nail. IMPRESSION: Contrast opacifies the stomach, no evidence for extraluminal contrast to suggest malpositioning of gastrostomy tube.
[2023-02-15] MEDS: DIATRIZOATE MEG 66% & DIATRIZOATE NA 10% 30ML UDC 30 ML PO (17:30)
[2023-02-15 17:37] VITALS: BP 115/60; PULSE 70; RESP 20; TEMP 36.7; O2SAT 97
== END 2023-02-15 17:53 | disposition home or self-care (01) ==
PROVIDERS: Emergency Provider Student in an Organized Health Care Education/Training Program; PCP Family Medicine
DX: K94.20 Gastrostomy complication, unspecified (principal); I25.10 Atherosclerotic heart disease of native coronary artery without angina pectoris; I42.9 Cardiomyopathy, unspecified; I10 Essential (primary) hypertension; E03.9 Hypothyroidism, unspecified
CPT/HCPCS: 43762; 74018; 99283

== ENCOUNTER 2023-03-19 11:22 | Observation (INO) | payer MEDICARE, SELFPAY ==
[2023-03-19 12:00] VITALS: BP 135/79; PULSE 83; RESP 18; TEMP 36.5; O2SAT 94; BMI 13.9
--- NOTE | 2023-03-19 12:07 | PC.NURSE ---
pt is confused. poor historian
--- NOTE | 2023-03-19 12:21 | PC.NURSE ---
DR ROSALES AT BEDSIDE
--- NOTE | 2023-03-19 12:22 | ED_ITS ---
Discharge Plan Disposition Patient Disposition: Admitted Prescriptions Prescriptions: No Action aspirin [Marylou Low Dose Aspirin] 81 mg tablet,delayed release (DR/EC) 81 mg PO DAILY amlodipine 2.5 mg tablet 2.5 mg PO DAILY Patient Comments: TAKE ONE TABLET BY MOUTH EVERY DAY pantoprazole 40 mg tablet,delayed release (DR/EC) 40 mg PO DAILY Qty: 30 3RF atorvastatin 20 MG tablet 20 mg PO HS metoprolol succinate 25 MG tablet extended release 24 hr 25 mg PO DAILY levothyroxine 50 MCG tablet 50 mcg PO DAILYDM sertraline 25 MG tablet 25 mg PO DAILY Referrals Follow up/Referrals: Javier Bains MD [Primary Care Provider] - See instructions Clinical Impressions Clinical Impression: Nausea & vomiting, NAM (acute kidney injury), Acute hyperkalemia, Dehydration, moderate, Fecal impaction Instructions Patient Instructions: DI for Diarrhea and Traveler's Diarrhea -- Adult, DI for Diarrhea and Traveler's Diarrhea -- Child, DI for Nausea -- Adult, DI for Nausea -- Child Discharge ED Provider: Yandel Linares General Adult HPI General Chief complaint: Nausea/Vomiting/Diarrhea Stated complaint: dark vomit feeding tube Time Seen by Provider: 03/19/23 12:17 Mode of Arrival: Wheelchair Source of Information: Relative Limitations: Altered Mental Status Description of Symptoms (Recalled from ER Triage Doc. by RN): throwing up tube feed. reddened around site. History of Present Illness HPI narrative: Patient is an 88-year-old cachectic male with a history of gastrostomy tube secondary to feeding intolerance presents today with nausea and vomiting and dark-colored emesis. No diarrhea. Has similar presentation within the last several years and was admitted for concern for possible gastric outlet obstruction ultimately was able to be discharged. No fevers chills chest pain shortness of breath or other symptoms today. Related Data Home Medications Medication Instructions Recorded Confirmed atorvastatin 20 mg tablet 20 mg PO HS Cholesterol 02/28/21 09/01/22 metoprolol succinate 25 mg 25 mg PO DAILY High Blood Pressure 02/28/21 09/01/22 tablet,extended release 24 hr aspirin 81 mg tablet,delayed 81 mg PO DAILY Heart Disease 04/14/21 09/01/22 release (Marylou Low Dose Aspirin) levothyroxine 50 mcg tablet 50 mcg PO DAILYDM hypothyroidism 05/20/21 09/01/22 sertraline 25 mg tablet 25 mg PO DAILY Depression 05/20/21 09/01/22 amlodipine 2.5 mg tablet 2.5 mg PO DAILY High Blood Pressure 08/14/22 09/01/22 Previous Rx's Medication Instructions Recorded pantoprazole 40 mg tablet,delayed 40 mg PO DAILY gastritis #30 tabs 08/18/22 release Allergies Allergy/AdvReac Type Severity Reaction Status Date / Time Penicillins Allergy Unknown Verified 09/01/22 12:33 [facility] Disclaimer: The information contained in this section may have been updated after the patient was seen, as this information can be updated by other users. Medical History Abnormal electrocardiography Acute esophageal obstruction CAD (coronary artery disease) Cardiomyopathy Decubitus ulcer of sacral region, stage 2 Esophageal diverticulum Esophagitis Failure to thrive in adult Fecal impaction in rectum Gastrojejunostomy tube dislodgement Gastrostomy tube in place Hearing deficit History of hip fracture History of pacemaker Hypertension Hypothyroidism Malnutrition Severe sepsis with acute organ dysfunction Surgical History Hx of CABG Family History Other Coronary artery disease Hypertension Stroke Social History Smoking Status: Never smoker alcohol intake: never substance use type: denies use current occupational status: retired Travel in the last 8 weeks: None household members: spouse housing: house caffeine: Yes ROS Obtained: Yes All systems reviewed & no additional complaints except as documented Physical Exam General General appearance: cachectic Respiratory Respiratory exam: Present normal lung sounds bilaterally Cardiovascular Cardiovascular exam: Present regular rate Abdominal Exam Abdominal exam: Present soft and other (Gastrostomy tube is in place no significant purulence or pathologic erythema surrounding the tube); Absent distention or tenderness Neurological Exam Neurological exam: Present alert Medical Decision Making [place] Inquiry Pt receiving controlled substance: No Vital Signs: 03/19/23 12:00 03/19/23 13:56 Temperature 97.7 F Temperature Source Oral Pulse Rate 82 Pulse Rate [Right Radial] 83 Respiratory Rate 18 Blood Pressure 131/69 Blood Pressure [Right Arm] 135/79 Blood Pressure Mean [Right Arm] 97 02 Sat by Pulse Oximetry 94 L 96 Oxygen Delivery Method Room Air Room Air Lab Data Lab results reviewed: Yes I reviewed the patient's lab results. Lab Results 03/19/23 12:20: WBC 11.4 H, RBC 4.43 L, Hgb 13.0 L, Hct 40.6 L, MCV 91.4, MCH 29.4, MCHC 32.1, RDW 15.8, Plt Count 428 H, MPV 8.3, Neut % (Auto) 81.3 H, Lymph % (Auto) 13.9, [place] % (Auto) 4.7, Eos % (Auto) 0.1, Baso % (Auto) 0.2, Neut # (Auto) 9.3 H, Lymph # (Auto) 1.6, [place] # (Auto) 0.5, Eos # (Auto) 0.0, Baso # (Auto) 0.0, Sodium 140, Potassium 5.4 H, Chloride 110 H, Carbon Dioxide 18 L, Anion Gap 17.4 H, BUN 57 H, Creatinine 1.30 H, Estimated Creat Clear 24, Estimated GFR 52 L, Est GFR ( Amer) 63, Glucose 127 H, Calcium 9.1, Total Bilirubin 0.9, AST 43, ALT 28, Alkaline Phosphatase 101, Total Protein 8.6 H, Albumin 3.7, Globulin 4.9 H, Albumin/Globulin Ratio 0.8 L, Lipase 61 03/19/23 12:20 03/19/23 12:20 Orders (Tests/Meds): ED MEDICATIONS Discontinued Medications Generic Name Dose Route Start Last Admin Trade Name Freq PRN Reason Stop Dose Admin Lactated Ringer's 1,000 mls @ 999 mls/hr 03/19/23 12:30 03/19/23 12:26 Lactated Ringer's 1000 Ml Bag IV 03/19/23 13:30 999 mls/hr .Q1H1M CHI Administration Iopamidol 75 ml 03/19/23 14:45 03/19/23 14:46 Iopamidol-370 (76%);100ml Bottle IV 03/19/23 14:46 75 ml ONCE ONE Administration Ondansetron HCl 4 mg 03/19/23 12:19 03/19/23 12:25 Ondansetron 4mg/2ml Vial IV 03/19/23 12:20 4 mg ONCE ONE Administration Sodium Chloride 10 ml 03/19/23 14:45 03/19/23 14:46 Sodium Chloride 0.9% 10ml Syr (Rad Only) IV 03/19/23 14:46 10 ml ONCE ONE Administration ORDERS Category Date Time Status CT abdomen pelvis w con Stat Cat Scan 03/19/23 14:31 Completed CBC w/Auto Diff [Complete Blood Count Auto Diff] Stat Lab 03/19/23 12:20 Completed CMP [Comprehensive Metabolic Panel] Stat Lab 03/19/23 12:20 Completed Lactic Acid Stat Lab 03/19/23 12:20 Ordered Lipase Stat Lab 03/19/23 12:20 Completed Medical Decision Narrative: 88-year-old presented with nausea and vomiting with gastrostomy tube. Differential includes gastric outlet obstruction from gastrostomy tube, mass/malignancy, bowel obstruction, hernia, etc. Will get a CT scan with co ntrast to further evaluate this. CT scan performed I personally interpreted which shows no acute emergency. There is a large stool ball consistent with fecal impaction will place an enema to try to loosen this up setting of a bowel movement. Patient is cachectic appears clinically dehydrated has acute kidney injury baseline creatinine 0.6 today is 1.3 has a depressed bicarb also mild hyperkalemia although is consistent with moderate dehydration in the setting of nausea and vomiting. IV fluids have been administered I discussed with him post outpatient follow-up versus admission IV fluids and they opted for admission will discuss the case with Dr. Whitehead who is on-call for Dr. Bains. Dr. Whitehead agreed to admit the patient for further evaluation and treatment. Critical Care Critical Care Time Critical Care Time: No
[2023-03-19] MEDS: ONDANSETRON 4MG/2ML VIAL 4 MG IV (12:25)
[2023-03-19] MEDS: LACTATED RINGERS 1000ML 1,000 ML 999 ML IV (12:26)
[2023-03-19 12:35] LABS: Chloride 110 mmol/L (98-107); Potassium 5.4 mmoL/L (3.5-5.1); Sodium 140 mmol/L (136-145)
[2023-03-19 12:38] LABS: Alanine Aminotransferase 28 U/L (12-78); Albumin Level 3.7 g/dl (3.5-5.0); Albumin/Globulin Ratio 0.8 (1.1-1.8); Alkaline Phosphatase 101 U/L (38-126); Anion Gap 17.4 mEq/L (5-15); Aspartate Amino Transferase 43 U/L (17-59); Bilirubin,Total 0.9 mg/dl (0.2-1.3); Blood Urea Nitrogen 57 mg/dl (9-20); Calcium 9.1 mg/dl (8.4-10.2); Carbon Dioxide 18 mmol/L (22.0-30.0); Creatinine Clearance Estimated 24 mL/min (50-200); Estimated Glomerular Filt Rate 52 ml/min (>60); GFR (African American) 63 ML/MIN (>60); Globulin 4.9 g/dL (1.3-3.2); Glucose 127 mg/dl (74-100); Lipase 61 U/L (23-300); Total Protein,Serum 8.6 g/dl (6.3-8.2)
[2023-03-19 12:39] LABS: Basophils % 0.2 % (0.1-2.0); Eosinophils % 0.1 % (0.1-12.0); Hematocrit 40.6 % (42.0-52.0); Lymphocytes # 1.6 K/mm3 (0.7-4.5); Lymphocytes % 13.9 % (10-50); Mean Corpuscular HGB Conc 32.1 g/dL (31.8-35.4); Mean Corpuscular Hemoglobin 29.4 pg (27.0-31.2); Mean Corpuscular Volume 91.4 fl (80-94); Mean Platelet Volume 8.3 fl (7.4-10.4); Monocytes # 0.5 K/mm3 (0.1-1.0); Monocytes % 4.7 % (1.7-9.3); Neutrophils # 9.3 K/mm3 (1.8-7.8); Neutrophils % 81.3 % (37.0-80.0); Platelet Count 428 K/mm3 (142-424); Red Blood Count 4.43 M/mm3 (4.60-6.20); Red Cell Distribution Width 15.8 % (11.5-17.5); White Blood Count 11.4 K/mm3 (4.8-10.8)
[2023-03-19 13:56] VITALS: BP 131/69; PULSE 82; O2SAT 96
[2023-03-19 14:00] VITALS: BP 147/78; PULSE 96; O2SAT 96
--- NOTE | 2023-03-19 14:31 | CT_ITS ---
PROCEDURE INFORMATION: Exam: CT Abdomen And Pelvis With Contrast Exam date and time: 03/19/2023 2:42 PM Age: 88 years old Clinical indication: Abdominal pain; Generalized; Additional info: Diffuse abd pain, n/v TECHNIQUE: Imaging protocol: Computed tomography of the abdomen and pelvis with contrast. Radiation optimization: All CT scans at this facility use at least one of these dose optimization techniques: automated exposure control; mA and/or kV adjustment per patient size (includes targeted exams where dose is matched to clinical indication); or iterative reconstruction. Contrast material: ISOVUE; Contrast volume: 75 ml; Contrast route: IV; COMPARISON: CT ABDOMEN PELVIS W CON 08/14/2022 9:22 PM FINDINGS: Tubes, catheters and devices: Gastrostomy tube again demonstrated Lungs: Bibasilar bronchiectasis with mucous plugging and subsegmental atelectasis. Findings have progressed. Pleural spaces: Small right greater than left bilateral pleural effusions. Findings have increased since the previous study. Diaphragm: Small-moderate hiatal hernia. Associated wall thickening suggested Liver: Low lying right lobe of the liver unchanged Gallbladder and bile ducts: Gallbladder unremarkable Pancreas: Pancreas unremarkable Spleen: The spleen is unremarkable. Adrenal glands: Adrenal glands unremarkable. Kidneys and ureters: No hydronephrosis. Renal scarring unchanged Stomach and bowel: Moderate to large amount of retained stool within the colon. Rectum markedly distended to 9.8 cm. Persistent mild fluid distension of small bowel loops Appendix: Appendix not visualized Intraperitoneal space: Unremarkable. No free air. No significant fluid collection. Vasculature: Scattered regions of atherosclerotic vascular calcification within the abdominal aorta and common iliac arteries. Lymph nodes: Unremarkable. No enlarged lymph nodes. Urinary bladder: Mild distension of the bladder Reproductive: Unremarkable as visualized. Bones/joints: Lumbar spondylosis with multilevel disc degeneration. Soft tissues: Unremarkable. IMPRESSION: 1. Moderate to marked stool burden with persistent impaction of the rectum. 2. Persistent mild thickening of the esophagus. Clinically correlate regarding inflammatory versus infiltrative process. 3. Small right greater than left bilateral pleural effusions. Findings increased since 08/14/2022.
--- NOTE | 2023-03-19 14:38 | PC.NURSE ---
PT TO CT
[2023-03-19] MEDS: SODIUM CHLORIDE 0.9% 10ML SYR (RAD ONLY) 10 ML IV (14:46)
[2023-03-19] MEDS: IOPAMIDOL-370 (76%);100ML BOTTLE 75 ML IV (14:46)
[2023-03-19 15:00] VITALS: BP 131/65; PULSE 89; O2SAT 95
--- NOTE | 2023-03-19 15:40 | PC.NURSE ---
DR ROSALES AT BEDSIDE
--- NOTE | 2023-03-19 15:47 | PC.NURSE ---
DR JAMAAL CONN FOR DR RIOS
--- NOTE | 2023-03-19 15:50 | PC.NURSE ---
Dr. Linares speaking with Dr. Santiago
[2023-03-19 16:01] VITALS: BP 118/56; PULSE 81; O2SAT 94
--- NOTE | 2023-03-19 16:45 | PC.NURSE ---
report called to 2nd floor Cornelia Irwin RN
--- NOTE | 2023-03-19 17:30 | PC.NURSE ---
soap suds emena administered. pt tolerated well. lg BM noted
[2023-03-19 17:45] VITALS: BP 104/54; PULSE 82; RESP 18; TEMP 36.3; O2SAT 95
--- NOTE | 2023-03-19 18:33 | PC.NURSE ---
Pt admitted with octavio and dehydration to [address] Bains, obs
[2023-03-19] MEDS: 0.9 % SODIUM CHLORIDE 1000ML 1,000 ML 75 ML IV (21:22)
[2023-03-20] VITALS: BP 110/71; PULSE 71; RESP 18; TEMP 36.9; O2SAT 95
[2023-03-20 04:00] VITALS: BP 121/64; PULSE 74; RESP 18; TEMP 36.9; O2SAT 98; BMI 14.1
[2023-03-20 08:00] VITALS: BP 99/49; PULSE 68; RESP 20; TEMP 37; O2SAT 95
--- NOTE | 2023-03-20 09:41 | P.HP_ITS ---
History of Present Illness *Admission Date: 03/19/23 *Reason for visit:: N/V *History of present illness: Mr. Singh is an 88 year old patient of [facility] who sees Dr. Sr for his primary care. Patient is G-tube dependent and reportedly had some nausea and vomiting associated with decreased stool output. [facility] Disclaimer: The information contained in this section may have been updated after the patient was seen, as this information can be updated by other users. Medical History (Updated 03/20/23 @ 09:48 by Javier Bains MD) Abnormal electrocardiography Acute esophageal obstruction CAD (coronary artery disease) Cardiomyopathy Decubitus ulcer of sacral region, stage 2 Esophageal diverticulum Esophagitis Failure to thrive in adult Fecal impaction in rectum Gastrojejunostomy tube dislodgement Gastrostomy tube in place Hearing deficit History of gastrostomy tube placement History of hip fracture History of pacemaker Hypertension Hypothyroidism Malnutrition Severe sepsis with acute organ dysfunction Surgical History Hx of CABG Family History Other Coronary artery disease Hypertension Stroke Social History (Updated 03/19/23 @ 16:45 by Tammie Arellano, YOU) Smoking Status: Never smoker alcohol intake: never substance use type: denies use current occupational status: retired Travel in the last 8 weeks: None household members: spouse housing: house caffeine: Yes Review of Systems Constitutional Constitutional: Denies chills and Denies fever(s) ENT Ears, Nose, Mouth, and Throat: Denies dizziness *Cardiovascular Cardiovascular: Denies chest pain *Respiratory Respiratory: Denies cough *Gastrointestinal Gastrointestinal: Denies hematemesis and Denies hematochezia *Genitourinary Genitourinary: Denies difficulty urinating *Musculoskeletal Musculoskeletal: Denies arthralgias *Neurologic Neurologic: Denies dizziness Meds Home Medications and Allergies Home Medications Medication Instructions Recorded Confirmed Type atorvastatin 20 mg tablet 20 mg PO HS Cholesterol 02/28/21 03/19/23 History metoprolol succinate 25 mg 25 mg PO DAILY High Blood Pressure 02/28/21 03/19/23 History tablet,extended release 24 hr aspirin 81 mg tablet,delayed 81 mg PO DAILY Heart Disease 04/14/21 03/19/23 History release (Marylou Low Dose Aspirin) levothyroxine 50 mcg tablet 50 mcg PO DAILYDM hypothyroidism 05/20/21 03/19/23 History sertraline 25 mg tablet 25 mg PO DAILY Depression 05/20/21 03/19/23 History amlodipine 2.5 mg tablet 2.5 mg PO DAILY High Blood Pressure 08/14/22 03/19/23 History pantoprazole 40 mg tablet,delayed 40 mg PO DAILY gastritis #30 tabs 08/18/22 03/19/23 Rx release New Prescriptions to Start Prescriptions: Allergies Allergy/AdvReac Type Severity Reaction Status Date / Time Penicillins Allergy Unknown Verified 09/01/22 12:33 Exam Data for Last 24 hours Vital signs and Labs for Last 24 Hours: Temp Pulse Resp BP Pulse Ox O2 Del Method 98.6 F 68 20 99/49 L 95 Room Air 03/20/23 08:00 03/20/23 08:00 03/20/23 08:00 03/20/23 08:00 03/20/23 08:00 03/20/23 08:00 Laboratory Results - last 24 hr 03/19/23 12:20: WBC 11.4 H, RBC 4.43 L, Hgb 13.0 L, Hct 40.6 L, MCV 91.4, MCH 29.4, MCHC 32.1, RDW 15.8, Plt Count 428 H, MPV 8.3, Neut % (Auto) 81.3 H, Lymph % (Auto) 13.9, [place] % (Auto) 4.7, Eos % (Auto) 0.1, Baso % (Auto) 0.2, Neut # ( Auto) 9.3 H, Lymph # (Auto) 1.6, [place] # (Auto) 0.5, Eos # (Auto) 0.0, Baso # (Auto) 0.0, Sodium 140, Potassium 5.4 H, Chloride 110 H, Carbon Dioxide 18 L, Anion Gap 17.4 H, BUN 57 H, Creatinine 1.30 H, Estimated Creat Clear 24, Estimated GFR 52 L, Est GFR ( Amer) 63, Glucose 127 H, Calcium 9.1, Total Bilirubin 0.9, AST 43, ALT 28, Alkaline Phosphatase 101, Total Protein 8.6 H, Albumin 3.7, Globulin 4.9 H, Albumin/Globulin Ratio 0.8 L, Lipase 61 I & O for Last 24 hours: Intake & Output 03/17/23 03/18/23 03/19/23 03/20/23 23:59 23:59 23:59 23:59 Intake Total 0 / 0 813 / 813 Output Total 0 / 0 0 / 0 Balance 0 / 0 813 / 813 Weight 92 lb 93 lb 7 oz Constitutional Constitutional: no acute distress Comments: frail appearing, hard of hearing *Routine HEENT Exam Head: Present normocephalic Eye: Present EOMI and PERRL ENT: Present mucous membranes moist *Routine Neck Exam Neck: Present supple; Absent lymphadenopathy *Routine Respiratory Exam Respiratory: Present CTA bilaterally *Routine Cardiovascular Exam Cardiovascular: Present RRR *Routine Abdominal Exam Abdominal: Present soft and normoactive bowel sounds; Absent tenderness Comments: G-tube in place *Routine Rectal Exam Rectal:: deferred *Routine Genitalia Exam Genitalia:: deferred *Routine Extremities Exam Extremities: Absent cyanosis, clubbing or edema *Routine Skin Exam Skin: Present warm; Absent rash *Routine Neurological Exam Neurological: Present alert and oriented X3 H&P: Result Imaging and Cardiology CT scan - abdomen: Status: final report (fecal impaction noted) Assessment and Plan *Assessment and plan (1) Nausea & vomiting: Status: Acute Category: Medical Code(s): R11.2 - Nausea with vomiting, unspecified (2) Fecal impaction: Status: Acute Category: Medical Code(s): K56.41 - Fecal impaction (3) NAM (acute kidney injury): Status: Acute Category: Medical Code(s): N17.9 - Acute kidney failure, unspecified (4) Acute hyperkalemia: Status: Acute Category: Medical Code(s): E87.5 - Hyperkalemia (5) Dehydration, moderate: Status: Acute Category: Medical Code(s): E86.0 - Dehydration Plan Patient admitted for further evaluation and management. He was given an enema in the ER, will give another today and continue IV fluid resuscitation.
--- NOTE | 2023-03-20 10:23 | HMH.PHAINT1 ---
Pharmacy Intervention Comments: MEDICATION RECONCILIATION COMPLETE USING EXTERNAL PHARMACY FILL HISTORY.
[2023-03-20 10:27] LABS: Chloride 115 mmol/L (98-107); Potassium 4.4 mmoL/L (3.5-5.1); Sodium 144 mmol/L (136-145)
[2023-03-20 10:30] LABS: Anion Gap 11.4 mEq/L (5-15); Blood Urea Nitrogen 38 mg/dl (9-20); Calcium 8.5 mg/dl (8.4-10.2); Carbon Dioxide 22 mmol/L (22.0-30.0); Creatinine Clearance Estimated 31 mL/min (50-200); Estimated Glomerular Filt Rate 80 ml/min (>60); GFR (African American) 97 ML/MIN (>60); Glucose 83 mg/dl (74-100)
[2023-03-20] MEDS: 0.9 % SODIUM CHLORIDE 1000ML 1,000 ML 75 ML IV (10:58)
[2023-03-20] MEDS: PANTOPRAZOLE 40MG TABLET 40 MG PO (13:39)
[2023-03-20] MEDS: ASPIRIN EC 81MG TABLET 81 MG PO (13:39)
[2023-03-20] MEDS: SERTRALINE 50MG TABLET 25 MG PO (13:39)
[2023-03-20] MEDS: SODIUM PHOS/BIPHOSPHATE FLEET 133ML ENEMA 133 ML RC (13:40)
[2023-03-20] MEDS: LEVOTHYROXINE 50MCG (0.05MG) TAB 50 MCG PO (13:40)
[2023-03-20 16:00] VITALS: BP 98/54; PULSE 73; RESP 18; TEMP 36.6; O2SAT 97
--- NOTE | 2023-03-20 17:20 | PC.NURSE ---
Pt is resting in bed. Received enema this shift. Had medium stool via brief. Pt is incontinent of urine and stool. He has GTube to abdomen. Erythema noted. DSG was changed around Gtube site. Drainage noted. Pt denies any discomfort. VSS. Pt is on RA with periods of O2 1L NC. Oral car performed. Pt turned/repositioned. Call light within reach.
[2023-03-20] MEDS: ATORVASTATIN 20MG TABLET 20 MG PO (20:12)
[2023-03-21] VITALS: BP 109/55; PULSE 74; RESP 18; TEMP 36.5; O2SAT 97
[2023-03-21] MEDS: 0.9 % SODIUM CHLORIDE 1000ML 1,000 ML 75 ML IV (02:44)
[2023-03-21 04:00] VITALS: BP 135/65; PULSE 81; RESP 18; TEMP 36.6; O2SAT 99; BMI 14.1
[2023-03-21] MEDS: LEVOTHYROXINE 50MCG (0.05MG) TAB 50 MCG PO (06:48)
--- NOTE | 2023-03-21 07:54 | EXP.ACUTE.PN ---
Subjective *Date: 03/21/23 *Time: 08:59 Interval history: Patient smiles and states he is okay today. Nurses report 1 stool yesterday. Patient remains NPO. Medical Exam Vital signs and Labs for Last 24 Hours: Vital Signs Temp Pulse Resp BP Pulse Ox O2 Del Method O2 Flow Rate 03/21/23 07:00 Nasal Cannula 1 03/21/23 04:00 97.8 F 81 18 135/65 99 Nasal Cannula 1 03/21/23 05:00 Nasal Cannula 1 03/21/23 03:00 Nasal Cannula 1 03/21/23 01:00 Nasal Cannula 1 03/21/23 00:00 97.7 F 74 18 109/55 L 97 Nasal Cannula 1 03/20/23 23:00 Nasal Cannula 1 03/20/23 21:00 Nasal Cannula 1 03/20/23 20:00 Room Air 03/20/23 19:00 Nasal Cannula 1 03/20/23 17:00 Nasal Cannula 1 03/20/23 16:00 97.8 F 73 18 98/54 L 97 Room Air 03/20/23 15:00 Nasal Cannula 1 03/20/23 13:00 Nasal Cannula 1 03/20/23 11:00 Nasal Cannula 1 03/20/23 09:00 Nasal Cannula 1 03/20/23 08:00 98.6 F 68 20 99/49 L 95 Room Air 03/20/23 08:00 Room Air Intake and Output 03/20/23 03/21/23 03/21/23 19:59 03:59 11:59 Intake Total 0 / 0 Output Total 0 / 0 0 / 0 0 / 0 Balance 0 / 0 0 / 0 0 / 0 Intake: Intake, Oral Amount 0 / 0 Output: Output, Urine Amount 0 / 0 0 / 0 0 / 0 Other: Number of Unmeasured Voids 1 1 1 Number of Bowel Movements 1 Weight 93 lb 6.91 oz Patient Weight 03/21/23 11:59 Weight 93 lb 6.91 oz Laboratory Results - last 24 hr 03/20/23 10:10: Sodium 144, Potassium 4.4, Chloride 115 H, Carbon Dioxide 22, Anion Gap 11.4, BUN 38 H D, Creatinine 0.90 D, Estimated Creat Clear 31, Estimated GFR 80, Est GFR ( Amer) 97 D, Glucose 83 D, Calcium 8.5 I & O for Labs for Last 24 Hours: Intake & Output 03/18/23 03/19/23 03/20/23 03/21/23 11:59 11:59 11:59 11:59 Intake Total 813 / 813 0 / 0 Output Total 0 / 0 0 / 0 Balance 81 813 0 / 0 Weight 93 lb 7 oz 93 lb 6.91 oz Constitutional: Present no acute distress and cachectic Comment:: Awakened for assessment Respiratory: Present rhonchi (Mostly clear with cough); Absent respiratory distress Cardiac: Present Reg Rate and Rhythm GI: Present soft and normal bowel sounds; Absent distention, tenderness or guarding Comments:: G-tube site in place with dressing. No surrounding erythema Extremities: Absent tenderness, edema or calf tenderness Neuro: Present alert and awake Comment:: Hard of hearing. Difficult to determine orientation Assessment and Plan *Assessment and plan (1) Nausea & vomiting: Status: Acute Category: Medical Code(s): R11.2 - Nausea with vomiting, unspecified (2) Fecal impaction: Status: Acute Category: Medical Code(s): K56.41 - Fecal impaction (3) NAM (acute kidney injury): Status: Acute Category: Medical Code(s): N17.9 - Acute kidney failure, unspecified (4) Acute hyperkalemia: Status: Acute Category: Medical Code(s): E87.5 - Hyperkalemia (5) Dehydration, moderate: Status: Acute Category: Medical Code(s): E86.0 - Dehydration Plan Will give another enema today. Continue IV fluids. Nutritional consult for continuing feedings per G-tube. Will check urinalysis. Dr. Bains entry - Saw patient, agree with above note. Possible discharge later today.
[2023-03-21 08:00] VITALS: BP 112/58; PULSE 81; RESP 16; TEMP 36.4; O2SAT 94
[2023-03-21 08:00] LABS: Basophils % 0.2 % (0.1-2.0); Eosinophils # 0.1 K/mm3 (0.0-0.4); Eosinophils % 0.8 % (0.1-12.0); Hematocrit 34.3 % (42.0-52.0); Hemoglobin 10.9 g/dL (14.1-18.0); Lymphocytes # 1.7 K/mm3 (0.7-4.5); Lymphocytes % 14.9 % (10-50); Mean Corpuscular HGB Conc 31.8 g/dL (31.8-35.4); Mean Corpuscular Hemoglobin 29.5 pg (27.0-31.2); Mean Corpuscular Volume 92.9 fl (80-94); Mean Platelet Volume 8.3 fl (7.4-10.4); Monocytes # 0.4 K/mm3 (0.1-1.0); Monocytes % 3.8 % (1.7-9.3); Neutrophils % 80.3 % (37.0-80.0); Platelet Count 371 K/mm3 (142-424); Red Blood Count 3.69 M/mm3 (4.60-6.20); Red Cell Distribution Width 15.9 % (11.5-17.5); White Blood Count 11.2 K/mm3 (4.8-10.8)
[2023-03-21 08:38] LABS: Chloride 117 mmol/L (98-107); Potassium 4.3 mmoL/L (3.5-5.1); Sodium 145 mmol/L (136-145)
[2023-03-21 08:41] LABS: Anion Gap 16.3 mEq/L (5-15); Blood Urea Nitrogen 29 mg/dl (9-20); Calcium 8.6 mg/dl (8.4-10.2); Carbon Dioxide 16 mmol/L (22.0-30.0); Creatinine Clearance Estimated 31 mL/min (50-200); Estimated Glomerular Filt Rate 71 ml/min (>60); GFR (African American) 86 ML/MIN (>60); Glucose 57 mg/dl (74-100)
[2023-03-21] MEDS: PANTOPRAZOLE 40MG TABLET 40 MG PO (09:32)
[2023-03-21] MEDS: SODIUM PHOS/BIPHOSPHATE FLEET 133ML ENEMA 133 ML RC (09:32)
[2023-03-21] MEDS: ASPIRIN EC 81MG TABLET 81 MG PO (09:32)
[2023-03-21] MEDS: SERTRALINE 50MG TABLET 25 MG PO (09:32)
[2023-03-21 10:07] VITALS: BMI 14.1
--- NOTE | 2023-03-21 13:10 | PC.NURSE ---
Pt had large BM in brief; wee bag in place in attempt to collect urine sample;
[2023-03-21 16:00] VITALS: BP 127/66; PULSE 71; RESP 16; TEMP 36.8; O2SAT 97
[2023-03-21 16:35] LABS: Microscopic, Urine URINE MICROSCOPIC (MICROSCOPIC)
[2023-03-21 16:42] LABS: Appearance,Urine SL CLOUDY (Clear); Bilirubin,Urine Negative (Negative); Blood, Urine TRACE-I (Negative); Color,Urine YELLOW (Yellow); Glucose,Urine (UA) Negative (Negative); Ketones,Urine 1+ (Negative); Leukocyte Esterase,Urine 1+ (Negative); Nitrate,Urine POSITIVE (Negative); Protein,Urine TRACE (Negative); Specific Gravity, Urine >= 1.030 (1.005-1.030); Urobilinogen,Urine 0.2 EU/dl (0.2)
[2023-03-21 16:59] LABS: Bacteria,Urine 3+ /lpf; RBC,Urine Occasional #/hpf (0-3); WBC,Urine 20-50 #/hpf (0-3)
[2023-03-21] MEDS: LEVOFLOXACIN/D5W 500 MG/100 ML PIGGYBACK 100 MG IV (17:32)
--- NOTE | 2023-03-21 19:54 | PC.NURSE ---
Patient left floor to go home at 19:27.
--- NOTE | 2023-03-24 13:48 | CARE MANAGER ---
Attempted to call patient to discuss recent discharge. Unable to reach via phone, attempted x 2.
--- NOTE | 2023-03-27 22:40 | P.DS_ITS ---
General Admission date:: 03/19/23 Discharge date: 03/21/23 HPI HPI HPI: Mr. Singh is an 88 year old patient of [facility] who sees Dr. Sr for his primary care. Patient is G-tube dependent and reportedly had some nausea and vomiting associated with decreased stool output. Hospital Course Hospital Course Hospital Course: The patient had a CT scan which showed fecal impaction. He was admitted and was given an enema in the emergency room before admission. Another enema was given on 03/20/2023 and he was continued on IV fluids. By 03/21/2023, he had had a stool and felt better. He was given another enema as well as IV fluids and nutrition was consulted for feedings per G-tube. A urinalysis was also ordered. His urine returned showing a UTI and he was stable to be discharged home on oral Levaquin. Of note, his urine culture returned showing E. coli which was sensitive to Levaquin. Exam Data for Last 24 hours Vital signs and Labs for Last 24 Hours: Temp Pulse Resp BP Pulse Ox O2 Del Method O2 Flow Rate 98.2 F 71 16 127/66 97 Room Air 1 03/21/23 16:00 03/21/23 16:00 03/21/23 16:00 03/21/23 16:00 03/21/23 16:00 03/21/23 19:00 03/21/23 08:00 Microbiology Reports for the Last 24 Hours: Microbiology 03/21/23 16:00 Urine,Clean Catch Urine Culture - Final Narrative: Constitutional Constitutional: no acute distress Comments: frail appearing, hard of hearing *Routine HEENT Exam Head: Present normocephalic Eye: Present EOMI and PERRL ENT: Present mucous membranes moist *Routine Neck Exam Neck: Present supple; Absent lymphadenopathy *Routine Respiratory Exam Respiratory: Present CTA bilaterally *Routine Cardiovascular Exam Cardiovascular: Present RRR *Routine Abdominal Exam Abdominal: Present soft and normoactive bowel sounds; Absent tenderness Comments: G-tube in place *Routine Rectal Exam Rectal:: deferred *Routine Genitalia Exam Genitalia:: deferred *Routine Extremities Exam Extremities: Absent cyanosis, clubbing or edema *Routine Skin Exam Skin: Present warm; Absent rash *Routine Neurological Exam Neurological: Present alert and oriented X3 DS: Diagnosis Discharge Diagnosis (1) Nausea & vomiting: Status: Acute Code(s): R11.2 - Nausea with vomiting, unspecified (2) Fecal impaction: Status: Acute Code(s): K56.41 - Fecal impaction (3) NAM (acute kidney injury): Status: Acute Code(s): N17.9 - Acute kidney failure, unspecified (4) Acute hyperkalemia: Status: Acute Code(s): E87.5 - Hyperkalemia (5) Dehydration, moderate: Status: Acute Code(s): E86.0 - Dehydration Meds Home Medications and Allergies Home Medications Medication Instructions Recorded Confirmed Type atorvastatin 20 mg tablet 20 mg PO HS Cholesterol 02/28/21 03/20/23 History metoprolol succinate 25 mg 25 mg PO DAILY High Blood Pressure 02/28/21 03/20/23 History tablet,extended release 24 hr aspirin 81 mg tablet,delayed 81 mg PO DAILY Heart Disease 04/14/21 03/20/23 History release (Marylou Low Dose Aspirin) levothyroxine 50 mcg tablet 50 mcg PO DAILYDM hypothyroidism 05/20/21 03/20/23 History sertraline 25 mg tablet 25 mg PO DAILY Depression 05/20/21 03/20/23 History amlodipine 2.5 mg tablet 2.5 mg PO DAILY High Blood Pressure 08/14/22 03/20/23 History pantoprazole 40 mg tablet,delayed 40 mg PO DAILY gastritis #30 tabs 08/18/22 03/20/23 Rx release levofloxacin 500 mg tablet 500 mg PO DAILY #5 tabs 03/21/23 Rx New Prescriptions to Start Prescriptions: levofloxacin Carmichael,Javier Allergies Allergy/AdvReac Type Severity Reaction Status Date / Time Penicillins Allergy Unknown Verified 09/01/22 12:33 Discharge Plan Disposition Patient Disposition: Home, Self-Care Condition: Fair Follow up Plan Follow up with: Jose Sr MD [Staff Physician] - 2 weeks Prescriptions/Medication Reconciliation: New levofloxacin 500 mg tablet 500 mg PO DAILY Qty: 5 0RF Continued aspirin [Marylou Low Dose Aspirin] 81 mg tablet,delayed release (DR/EC) 81 mg PO DAILY amlodipine 2.5 mg tablet 2.5 mg PO DAILY Patient Comments: TAKE ONE TABLET BY MOUTH EVERY DAY pantoprazole 40 mg tablet,delayed release (DR/EC) 40 mg PO DAILY Qty: 30 3RF atorvastatin 20 MG tablet 20 mg PO HS metoprolol succinate 25 MG tablet extended release 24 hr 25 mg PO DAILY levothyroxine 50 MCG tablet 50 mcg PO DAILYDM sertraline 25 MG tablet 25 mg PO DAILY Problem Reconciliation Problems Reviewed?: Yes Patient Discharge Instructions ACTIVITY: Continue current activity DIET: continue same diet Patient Instructions: DI for Urinary Tract Infection (UTI), DI for Constipation, DI for Hyperkalemia, Nausea and Vomiting-Adult, DI for Acute Kidney Injury Providers Primary Care Provider: Javier Bains Admit Provider: Booker Santiago Attending Provider: Javier Bains
== END 2023-03-21 19:27 | disposition home or self-care (01) ==
LOC: ER 15:47 → 2ND 16:05
PROVIDERS: Nurse Practitioner Family; Student in an Organized Health Care Education/Training Program; Admitting Provider Internal Medicine Adolescent Medicine; Emergency Provider Emergency Medicine; PCP Family Medicine; Visit Provider Family Medicine
DX: N17.9 Acute kidney failure, unspecified (principal); R11.2 Nausea with vomiting, unspecified; K56.41 Fecal impaction; E87.5 Hyperkalemia; E86.0 Dehydration; Z79.899 Other long term (current) drug therapy; Z68.1 Body mass index [BMI] 19.9 or less, adult; I25.10 Atherosclerotic heart disease of native coronary artery without angina pectoris; R64 Cachexia; Z93.1 Gastrostomy status
CPT/HCPCS: 36415; 74177; 80048; 80053; 81001; 83690; 85025; 87086; 99285; G0378; J1956; J2405; Q9967

== ENCOUNTER 2023-06-07 16:18 | Observation (INO) | payer MEDICARE, SELFPAY ==
[2023-06-07 16:22] VITALS: BP 77/30; PULSE 88; RESP 27; TEMP 36.1; O2SAT 90; BMI 13.6
--- NOTE | 2023-06-07 16:37 | ED_ITS ---
Discharge Plan Prescriptions Prescriptions: No Action aspirin [Marylou Low Dose Aspirin] 81 mg tablet,delayed release (DR/EC) 81 mg PO DAILY amlodipine 2.5 mg tablet 2.5 mg PO DAILY Patient Comments: TAKE ONE TABLET BY MOUTH EVERY DAY pantoprazole 40 mg tablet,delayed release (DR/EC) 40 mg PO DAILY Qty: 30 3RF atorvastatin 20 MG tablet 20 mg PO HS metoprolol succinate 25 MG tablet extended release 24 hr 25 mg PO DAILY levothyroxine 50 MCG tablet 50 mcg PO DAILYDM sertraline 25 MG tablet 25 mg PO DAILY levofloxacin 500 mg tablet 500 mg PO DAILY Qty: 5 0RF Referrals Follow up/Referrals: Javier Bains MD [Primary Care Provider] - See instructions Discharge ED Provider: Yandel Linares General Adult HPI General Stated complaint: weakness Time Seen by Provider: 06/07/23 16:27 History of Present Illness HPI narrative: Patient is an 88-year-old male chronically cachectic G-tube dependent presenting today with decreased responsiveness and black emesis. He is DNR according to his who is at the bedside. He has been minimally responsive for the last several weeks and has been in bed without much interaction. She states that Dr. Bains has told her in the past that he may pass any time but he is not on palliative care. No further history is able to be obtained from the patient given his clinical status. He came from home. Related Data Home Medications Medication Instructions Recorded Confirmed atorvastatin 20 mg tablet 20 mg PO HS Cholesterol 02/28/21 03/20/23 metoprolol succinate 25 mg 25 mg PO DAILY High Blood Pressure 02/28/21 03/20/23 tablet,extended release 24 hr aspirin 81 mg tablet,delayed 81 mg PO DAILY Heart Disease 04/14/21 03/20/23 release (Marylou Low Dose Aspirin) levothyroxine 50 mcg tablet 50 mcg PO DAILYDM hypothyroidism 05/20/21 03/20/23 sertraline 25 mg tablet 25 mg PO DAILY Depression 05/20/21 03/20/23 amlodipine 2.5 mg tablet 2.5 mg PO DAILY High Blood Pressure 08/14/22 03/20/23 Previous Rx's Medication Instructions Recorded pantoprazole 40 mg tablet,delayed 40 mg PO DAILY gastritis #30 tabs 08/18/22 release levofloxacin 500 mg tablet 500 mg PO DAILY #5 tabs 03/21/23 Allergies Allergy/AdvReac Type Severity Reaction Status Date / Time Penicillins Allergy Unknown Verified 09/01/22 12:33 [facility] Disclaimer: The information contained in this section may have been updated after the patient was seen, as this information can be updated by other users. Medical History (Updated 03/20/23 @ 09:48 by Javier Bains MD) History of gastrostomy tube placement Fecal impaction in rectum Severe sepsis with acute organ dysfunction Esophagitis Gastrostomy tube in place Decubitus ulcer of sacral region, stage 2 CAD (coronary artery disease) Failure to thrive in adult Hypothyroidism History of hip fracture History of pacemaker Gastrojejunostomy tube dislodgement Acute esophageal obstruction Abnormal electrocardiography Cardiomyopathy Esophageal diverticulum Malnutrition Hearing deficit Hypertension Surgical History Hx of CABG Family History Other Coronary artery disease Hypertension Stroke Social History (Updated 03/19/23 @ 16:45 by Tammie Arellano, YOU) Smoking Status: Never smoker alcohol intake: never substance use type: denies use current occupational status: retired Travel in the last 8 weeks: None household members: spouse housing: house caffeine: Yes ROS Obtained: Yes unobtainable due to mental status Physical Exam General General appearance: in distress, cachectic and other (Black emesis on the patient's chest and shoulder) Respiratory Respiratory exam: Present other (Tachypneic in respiratory distress oxygen saturations in the 70s on room air) Cardiovascular Cardiovascular exam: Present regular rate Abdominal Exam Abdominal exam: Present other (NG tube in place) Extremities Exam Extremities exam: Present other (Wasted extremities very poor peripheral perfusion) Neurological Exam Neurological exam: Absent alert or oriented X3 Expanded Neurological Exam Coma scale eye opening: None Coma scale motor response: Withdraws to pain Coma scale verbal response: None Coma scale total: 6 Medical Decision Making [place] Inquiry Pt receiving controlled substance: No Orders (Tests/Meds): ED MEDICATIONS Generic Name Dose Route Start Last Admin Trade Name Freq PRN Reason Stop Dose Admin Glycopyrrolate 0.2 mg 06/07/23 17:04 Glycopyrrolate 0.2 Mg/Ml 1ml Vial SQ 07/07/23 17:03 Q4HP PRN Secretions Midazolam HCl 1 mg 06/07/23 17:04 Midazolam 2mg/2ml Vial IV 07/07/23 17:03 Q15M PRN Sedation Morphine Sulfate 10 mg 06/07/23 17:04 Morphine 20mg/Ml 1ml Oral Solution PO 07/07/23 17:03 Q2HP PRN Severe Pain (7-10) ORDERS Category Date Time Status Consult to Hospice [CONS] Routine Cons 06/07/23 17:04 Active Medical Decision Narrative: 88 -year-old male presenting in extremis with clinically what appears to be a critical gastrointestinal bleed. He has black emesis is hypotensive unresponsive in respiratory distress and hypoxic. He is critically ill his prognosis is very poor. I had an extensive discussion with his who is at the bedside regarding goals of care and at the moment he is DNR and our care is palliative alone. Therefore I have held off on any aggressive intervention regarding his airway resuscitation etc. Waiting for his daughter to come to the bedside and I will reassess. After discussion with the patient's daughter and mother further everyone is on the same page he will be comfort care only DNR. Their only request is that he is kept out of pain and out of significant suffering. I have ordered medications for his secretions anxiety and pain as needed I spoke with Dr. Whitehead who is on-call for Dr. Bains who agreed to admit the patient for further evaluation and treatment. Critical Care Critical Care Time Critical Care Time: Yes Attestation: On 06/07/23, the high probability of a clinically significant, sudden or life threatening deterioration of the following system(s) required my full and direct attention, intervention and personal management. The time I documented below is in addition to time spent performing reported procedures but includes the following listed in this critical care notation. Total Time Total Critical Care Time: 35
--- NOTE | 2023-06-07 17:01 | PC.NURSE ---
Dr. Jack adair
--- NOTE | 2023-06-07 17:03 | PC.NURSE ---
Dr. Linares speaking with Dr. Santiago
[2023-06-07 17:09] VITALS: BMI 11.5
--- NOTE | 2023-06-07 17:10 | PC.NURSE ---
Dr. Santiago agrees to admit pt for Dr. Bains. House notified for bed assignment
--- NOTE | 2023-06-07 17:23 | PC.NURSE ---
called report to Rory ORTA on Med/Surg
[2023-06-07 17:42] VITALS: BP 83/47; PULSE 88; RESP 27; TEMP 36.1; O2SAT 57
[2023-06-07 17:47] VITALS: BP 83/47; PULSE 72; RESP 26; TEMP 36.3; O2SAT 57
--- NOTE | 2023-06-07 17:47 | PC.NURSE ---
Pt arrived to the floor at this time via stretcher
--- NOTE | 2023-06-07 18:07 | PC.NURSE ---
UNABLE TO WEIGH PATIENT DUE TO BED SCALE NOT WORKING AT THIS TIME. NURSE AWARE.
--- NOTE | 2023-06-07 18:27 | PC.NURSE ---
Hospice Referral started at this time.
--- NOTE | 2023-06-07 19:30 | PC.NURSE ---
Hospice nurse speaking with family at bedside at this time.
--- NOTE | 2023-06-07 19:53 | PC.NURSE ---
Entered room to assess pt and found pt to not be breathing and not have a heart rate @1947. Family at bedside notified. Jack DOSHI notified @ 1949. Called NELLY DOSHI to come up to pronounce @ 1953.
--- NOTE | 2023-06-07 20:09 | PC.NURSE ---
ER MD unable to come up at this time. Hospitalist notified and states he is able to come up now.
--- NOTE | 2023-06-07 20:13 | PC.NURSE ---
Taylor Cruz at bedside at this time. FINN 1947
--- NOTE | 2023-06-07 20:21 | PC.NURSE ---
THEO butler. Spoke with Yumiko Guerrero, . Pt ruled out at this time
--- NOTE | 2023-06-07 20:31 | EXP.DEATH.DS ---
Documented by User: Alex SAM Cruz 06/07/23 20:38 Discharge Sum: Prov Provider Primary care physician: Javier Bains MD Visit Care Team Role Provider Type J Adan Linares MD Emergency Provider ER Physician Javier Bains MD Attending Provider Staff Physician Primary Care Provider Booker Santiago MD Admit Provider Staff Physician Admitting clinician: Javier Bains Attending physician on admission: Savage Collins Consults: 06/07/23 17:04 Consult to Hospice [CONS] Routine Comment: UGI, bleed, cachexia, if he survives the night Consulting Provider: Pronouncing clinician: Alex Cruz Discharge Sum: Diag PCOD Cause of : Hemorrhage Discharge Sum: Summary Date and Time Date of admission: 06/07/23 17:45 Date of : 06/07/23 Time of : 19:48 Hospital Course prior to Hospital Course Information: 88 -year-old male presenting in extremis with clinically what appears to be a critical gastrointestinal bleed. He has black emesis is hypotensive unresponsive in respiratory distress and hypoxic. He is critically ill his prognosis is very poor. I had an extensive discussion with his who is at the bedside regarding goals of care and at the moment he is DNR and our care is palliative alone. Therefore I have held off on any aggressive intervention regarding his airway resuscitation After discussion with the patient's daughter and mother further everyone is on the same page he will be comfort care only DNR. Their only request is that he is kept out of pain and out of significant suffering. Summary Details: 1947 patient assessment at bedside found no pulse no heart sound, pupils fixed non reative. TO1947 Additional Data Confirmation of as documented by pronouncing clinician: no pulse, no respirations, no heart sounds and pupils fixed and dilated Family: at bedside Additional persons at bedside: other Attending/PCP notified?: No Attending physician: Javier Bains MD Was code activated?: No Autopsy requested?: No unemployment examiner notified?: Yes Organ bank notified?: Yes Advance directives: Yes Hospice patient?: Yes Documented by User: Savage Collins MD 06/15/23 17:38 Discharge Sum: Summary Hospital Course prior to Hospital Course Information: 88 -year-old male presenting in extremis with clinically what appears to be a critical gastrointestinal bleed. He has black emesis is hypotensive unresponsive in respiratory distress and hypoxic. He is critically ill his prognosis is very poor. I had an extensive discussion with his who is at the bedside regarding goals of care and at the moment he is DNR and our care is palliative alone. Therefore I have held off on any aggressive intervention regarding his airway resuscitation After discussion with the patient's daughter and mother further everyone is on the same page he will be comfort care only DNR. Their only request is that he is kept out of pain and out of significant suffering. Summary Details: 19:48 patient assessment at bedside found no pulse no heart sound, pupils fixed non reative. TOD 19:48
--- NOTE | 2023-06-07 21:28 | PC.NURSE ---
Notified hospice of pt passing at this time.
--- NOTE | 2023-06-07 21:50 | PC.NURSE ---
Notified [facility] family would like to use their services.
--- NOTE | 2023-06-07 22:40 | PC.NURSE ---
halfway personnel arrived to hospital
--- NOTE | 2023-06-07 23:01 | PC.NURSE ---
Nursing left floor with pt at this time.
--- NOTE | 2023-06-07 23:02 | PC.NURSE ---
prison staff left floor with patient at this time
--- NOTE | 2023-06-13 12:58 | P.DS_ITS ---
General Admission date:: 06/07/23 Discharge date: 06/07/23 HPI HPI HPI: HPI narrative: Patient is an 88-year-old male chronically cachectic G-tube dependent presenting today with decreased responsiveness and black emesis. He is DNR according to his who is at the bedside. He has been minimally responsive for the last several weeks and has been in bed without much interaction. She states that Dr. Bains has told her in the past that he may pass any time but he is not on palliative care. No further history is able to be obtained from the patient given his clinical status. He came from home. Medical Decision Narrative: 88 -year-old male presenting in extremis with clinically what appears to be a critical gastrointestinal bleed. He has black emesis is hypotensive unresponsive in respiratory distress and hypoxic. He is critically ill his prognosis is very poor. I had an extensive discussion with his who is at the bedside regarding goals of care and at the moment he is DNR and our care is palliative alone. Therefore I have held off on any aggressive intervention regarding his airway resuscitation etc. Waiting for his daughter to come to the bedside and I will reassess. After discussion with the patient's daughter and mother further everyone is on the same page he will be comfort care only DNR. Their only request is that he is kept out of pain and out of significant suffering. I have ordered medications for his secretions anxiety and pain as needed I spoke with Dr. Whitehead who is on-call for Dr. Bains who agreed to admit the patient for further evaluation and treatment. the above documentation as per ER MD Hospital Course Hospital Course Hospital Course: Patient was transferred to the medical floor at 1747. Hospice referral was initiated and the nurse did speak with the family at the bedside. Family wanted palliative care only. When nursing staff went to assess the patient he was found not to be breathing and without a heart rate at 1940. Family continued to be at bedside. Time of was noted to be at 1948 pronounced by hospitalist. Body was released to [facility] Exam Data for Last 24 hours Vital signs and Labs for Last 24 Hours: Temp Pulse Resp BP Pulse Ox O2 Del Method O2 Flow Rate 97.4 F L 72 26 H 83/47 L 57 L Nasal Cannula 2 06/07/23 17:47 06/07/23 17:47 06/07/23 17:47 06/07/23 17:47 06/07/23 17:47 06/07/23 18:16 06/07/23 18:16 Narrative: Physical Exam General General appearance: in distress, cachectic and other (Black emesis on the patient's chest and shoulder) Respiratory Respiratory exam: Present other (Tachypneic in respiratory distress oxygen saturations in the 70s on room air) Cardiovascular Cardiovascular exam: Present regular rate Abdominal Exam Abdominal exam: Present other (NG tube in place) Extremities Exam Extremities exam: Present other (Wasted extremities very poor peripheral perfusion) Neurological Exam Neurological exam: Absent alert or oriented X3 Expanded Neurological Exam Coma scale eye opening: None Coma scale motor response: Withdraws to pain Coma scale verbal response: None Coma scale total: 6 DS: Diagnosis Discharge Diagnosis (1) Decubitus ulcer of sacral region, stage 2: Status: Acute Code(s): L89.152 - Pressure ulcer of sacral region, stage 2 (2) Anemia: Status: Acute Code(s): D64.9 - Anemia, unspecified Qualifiers: Anemia type: unspecified type Qualified Code(s): D64.9 - Anemia, unspecified (3) Gastrostomy tube in place: Status: Acute Code(s): Z93.1 - Gastrostomy status (4) Hypertension: Status: Chronic Code(s): I10 - Essential (primary) hypertension Qualifiers: Hypertension type: primary hypertension Qualified Code(s): I10 - Essential (primary) hypertension (5) Hearing deficit: Status: Chronic Code(s): H91.90 - Unspecified hearing loss, unspecified ear Qualifiers: Hearing loss type: unspecified Laterality: unspecified laterality Qualified Code(s): H91.90 - Unspecified hearing loss, unspecified ear (6) Malnutrition: Status: Acute Code(s): E46 - Unspecified protein-calorie malnutrition Qualifiers: Malnutrition type: protein-calorie malnutrition Protein-calorie malnutrition severity: unspecified severity Qualified Code(s): E46 - Unspecified protein-calorie malnutrition (7) Failure to thrive in adult: Status: Acute Code(s): R62.7 - Adult failure to thrive (8) Hypothyroidism: Status: Acute Code(s): E03.9 - Hypothyroidism, unspecified (9) Dysphagia: Status: Acute Code(s): R13.10 - Dysphagia, unspecified Qualifiers: Dysphagia type: esophageal phase Qualified Code(s): R13.19 - Other dysphagia (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 Code(s): Z95.0 - Presence of cardiac pacemaker (11) Cardiomyopathy: Status: Chronic Code(s): I42.9 - Cardiomyopathy, unspecified Qualifiers: Cardiomyopathy type: unspecified Qualified Code(s): I42.9 - Cardiomyopathy, unspecified Meds Home Medications and Allergies Home Medications Medication Instructions Recorded Confirmed Type atorvastatin 20 mg tablet 20 mg PO HS Cholesterol 02/28/21 06/07/23 History metoprolol succinate 25 mg 25 mg PO DAILY High Blood Pressure 02/28/21 06/07/23 History tablet,extended release 24 hr aspirin 81 mg tablet,delayed 81 mg PO DAILY Heart Disease 04/14/21 06/07/23 History release (Marylou Low Dose Aspirin) levothyroxine 50 mcg tablet 50 mcg PO DAILYDM hypothyroidism 05/20/21 06/07/23 History sertraline 25 mg tablet 25 mg PO DAILY Depression 05/20/21 06/07/23 History amlodipine 2.5 mg tablet 2.5 mg PO DAILY High Blood Pressure 08/14/22 06/07/23 History pantoprazole 40 mg tablet,delayed 40 mg PO DAILY gastritis #30 tabs 08/18/22 06/07/23 Rx release levofloxacin 500 mg tablet 500 mg PO DAILY #5 tabs 03/21/23 06/07/23 Rx New Prescriptions to Start Prescriptions: Allergies Allergy/AdvReac Type Severity Reaction Status Date / Time Penicillins Allergy Unknown Verified 09/01/22 12:33 Discharge Plan Disposition Patient Disposition: Date/Time Date/Time: 06/07/23 23:02 Providers Primary Care Provider: Javier Bains Admit Provider: Booker Santiago Attending Provider: Javier Bains
== END 2023-06-07 23:02 | disposition expired ==
LOC: ER 17:09 → 2ND 17:45
PROVIDERS: Admitting Provider Internal Medicine Adolescent Medicine; Emergency Provider Student in an Organized Health Care Education/Training Program; PCP Family Medicine; Visit Provider Family Medicine
DX: R58 Hemorrhage, not elsewhere classified (principal); L89.152 Pressure ulcer of sacral region, stage 2; Z51.5 Encounter for palliative care; D64.9 Anemia, unspecified; R64 Cachexia; Z66 Do not resuscitate; Z93.1 Gastrostomy status; I10 Essential (primary) hypertension; H91.90 Unspecified hearing loss, unspecified ear; E46 Unspecified protein-calorie malnutrition; R62.7 Adult failure to thrive; E03.9 Hypothyroidism, unspecified; R13.19 Other dysphagia; Z95.0 Presence of cardiac pacemaker; I42.9 Cardiomyopathy, unspecified; Z68.1 Body mass index [BMI] 19.9 or less, adult; Z79.899 Other long term (current) drug therapy
CPT/HCPCS: 99291; G0378